=== PATIENT | female | born 1935 | race Caucasian/White ===

== ENCOUNTER 2016-10-16 18:11 | Observation (INO) | payer MEDICARE ==
[2016-10-16] MEDS ORDERED: SODIUM CHLORIDE 0.9% 1,000 ML IV STA (18:27)
--- NOTE | 2016-10-16 18:35 | ED ---
Syncope HPI - General Chief Complaint: Syncope Stated Complaint: Near Syncope Time Seen by Provider: 10/16/16 18:23 Source: patient, EMS Mode of arrival: EMS Limitations: no limitations - History of Present Illness Initial Comments: 81-year-old female recently diagnosed with breast cancer just finishing her radiation this coming Tuesday. He was going out to dinner when she felt very weak and flushed. She was seen by EMS and transported the hospital she was hypotensive. Said no fever no chills no cough no chest pain no percussion chest no shortness of breath no nausea vomiting has been taking some fluids. - Related Data Home Medications Medication Instructions Recorded Confirmed Alendronate Sodium [Fosamax] 70 mg PO CRUZ 03/07/14 10/16/16 Benazepril HCl 40 mg PO DAILY 03/07/14 10/16/16 Citalopram Hydrobromide [CeleXA] 40 mg PO HS 03/07/14 10/16/16 Levothyroxine Sodium [Synthroid] 25 mcg PO HS 03/07/14 10/16/16 Meloxicam [Mobic] 7.5 mg PO QAM 03/07/14 10/16/16 Simvastatin [Zocor] 20 mg PO HS 11/08/15 10/16/16 Temazepam [Restoril] 30 mg PO HS 07/05/16 10/16/16 Anastrozole [Arimidex] 1 mg PO DAILY 10/16/16 10/16/16 Bifidobacterium Infantis [Align] 4 mg PO DAILY 10/16/16 10/16/16 Calcium Carb-Vit D 500Mg-200Un 1 tab PO DAILY 10/16/16 10/16/16 [Oscal 500+D] Multivitamins, Thera [Multivitamin] 1 tab PO DAILY 10/16/16 10/16/16 Allergies Allergy/AdvReac Type Severity Reaction Status Date / Time codeine Allergy Unknown Verified 10/16/16 19:06 sulfur dioxide Allergy Unknown Verified 10/16/16 19:06 Review of Systems ROS Statement: Those systems with pertinent positive or pertinent negative responses have been documented in the HPI. ROS Other: All systems not noted in ROS Statement are negative. Constitutional: Denies: fever, chills ENT: Denies: ear pain, throat pain Respiratory: Denies: cough Cardiovascular: Denies: chest pain Gastrointestinal: Denies: abdominal pain, nausea, vomiting, diarrhea Genitourinary: Denies: urgency, dysuria, frequency Skin: Reports: rash (Redness on the right breast from radiation) Neurological: Denies: headache, weakness, numbness Psychiatric: Denies: anxiety, depression Hematological/Lymphatic: Denies: easy bleeding, easy bruising Past Medical History Past Medical History: Cancer, Hyperlipidemia, Hypertension, Thyroid Disorder Additional Past Medical History / Comment(s): arthritis, radiation for breast cancer History of Any Multi-Drug Resistant Organisms: None Reported Additional Past Surgical History / Comment(s): basal cell carcinoma, knee surgery Past Anesthesia/Blood Transfusion Reactions: No Reported Reaction Past Psychological History: Anxiety Smoking Status: Never smoker Past Alcohol Use History: None Reported Past Drug Use History: None Reported General Exam Limitations: no limitations General appearance: alert, in no apparent distress Head exam: Present: atraumatic Eye exam: Present: PERRL, EOMI ENT exam: Present: normal oropharynx, mucous membranes moist Respiratory exam: Present: normal lung sounds bilaterally Cardiovascular Exam: Present: regular rate, normal heart sounds GI/Abdominal exam: Present: soft. Absent: tenderness, guarding Neurological exam: Present: alert, CN II-XII intact Psychiatric exam: Present: normal affect Skin exam: Present: warm, dry, other (Redness right breast) Course Vital Signs 10/16/16 10/16/16 10/16/16 18:16 18:20 19:12 Temperature 97.9 F 97.6 F Pulse Rate 74 77 Respiratory 18 16 Rate Blood Pressure 87/43 95/56 92/53 O2 Sat by Pulse 94 L 97 Oximetry 10/16/16 10/16/16 19:52 20:42 Temperature 97.6 F Pulse Rate 72 74 Respiratory 16 16 Rate Blood Pressure 101/59 101/74 O2 Sat by Pulse 97 96 Oximetry Medical Decision Making - Medical Decision Making Patient appears be a combination of dehydration with her blood pressure medicine well hydrated overnight with a spoken to Dr. Davenport observation assistant - Lab Data Result diagrams: 10/16/16 17:20 10/16/16 17:20 Lab Results 10/16/16 10/16/16 10/16/16 Range/Units 17:20 17:20 17:20 WBC 4.5 (3.8-10.6) k/uL RBC 4.30 (3.80-5.40) m/uL Hgb 12.8 (11.4-16.0) gm/dL Hct 40.4 (34.0-46.0) % MCV 93.8 (80.0-100.0) fL MCH 29.8 (25.0-35.0) pg MCHC 31.7 (31.0-37.0) g/dL RDW 13.8 (11.5-15.5) % Plt Count 202 (150-450) k/uL Neutrophils % 65 % Lymphocytes % 15 % Monocytes % 10 % Eosinophils % 5 % Basophils % 1 % Neutrophils # 2.9 (1.3-7.7) k/uL Lymphocytes # 0.7 L (1.0-4.8) k/uL Monocytes # 0.4 (0-1.0) k/uL Eosinophils # 0.2 (0-0.7) k/uL Basophils # 0.1 (0-0.2) k/uL PT (9.0-12.0) sec INR (<1.1) APTT (22.0-30.0) sec Sodium 141 (137-145) mmol/L Potassium 3.9 (3.5-5.1) mmol/L Chloride 105 (98-107) mmol/L Carbon Dioxide 27 (22-30) mmol/L Anion Gap 9 mmol/L BUN 22 H (7-17) mg/dL Creatinine 0.85 (0.52-1.04) mg/dL Est GFR (MDRD) Af Amer >60 (>60 ml/min/1.73 sqM) Est GFR (MDRD) Non-Af >60 (>60 ml/min/1.73 sqM) Glucose 91 (74-99) mg/dL POC Glucose (mg/dL) (75-99) mg/dL POC Glu Marshmallow Machine Operator ID Plasma Lactic Acid Saul (0.7-2.0) mmol/L Calcium 9.5 (8.4-10.2) mg/dL Total Bilirubin 0.3 (0.2-1.3) mg/dL AST 23 (14-36) U/L ALT 30 (9-52) U/L Alkaline Phosphatase 64 (38-126) U/L Total Creatine Kinase 20 L (30-135) U/L CK-MB (CK-2) 0.3 (0.0-2.4) ng/mL CK-MB (CK-2) Rel Index 1.5 Troponin I <0.012 (0.000-0.034) ng/mL NT-Pro-B Natriuret Pep pg/mL Total Protein 6.2 L (6.3-8.2) g/dL Albumin 3.5 (3.5-5.0) g/dL 10/16/16 10/16/16 10/16/16 Range/Units 17:20 17:20 17:20 WBC (3.8-10.6) k/uL RBC (3.80-5.40) m/uL Hgb (11.4-16.0) gm/dL Hct (34.0-46.0) % MCV (80.0-100.0) fL MCH (25.0-35.0) pg MCHC (31.0-37.0) g/dL RDW (11.5-15.5) % Plt Count (150-450) k/uL Neutrophils % % Lymphocytes % % Monocytes % % Eosinophils % % Basophils % % Neutrophils # (1.3-7.7) k/uL Lymphocytes # (1.0-4.8) k/uL Monocytes # (0-1.0) k/uL Eosinophils # (0-0.7) k/uL Basophils # (0-0.2) k/uL PT 12.5 H (9.0-12.0) sec INR 1.3 (<1.1) APTT 21.2 L (22.0-30.0) sec Sodium (137-145) mmol/L Potassium (3.5-5.1) mmol/L Chloride (98-107) mmol/L Carbon Dioxide (22-30) mmol/L Anion Gap mmol/L BUN (7-17) mg/dL Creatinine (0.52-1.04) mg/dL Est GFR (MDRD) Af Amer (>60 ml/min/1.73 sqM) Est GFR (MDRD) Non-Af (>60 ml/min/1.73 sqM) Glucose (74-99) mg/dL POC Glucose (mg/dL) (75-99) mg/dL POC Glu Marshmallow Machine Operator ID Plasma Lactic Acid Saul 1.4 (0.7-2.0) mmol/L Calcium (8.4-10.2) mg/dL Total Bilirubin (0.2-1.3) mg/dL AST (14-36) U/L ALT (9-52) U/L Alkaline Phosphatase (38-126) U/L Total Creatine Kinase (30-135) U/L CK-MB (CK-2) (0.0-2.4) ng/mL CK-MB (CK-2) Rel Index Troponin I (0.000-0.034) ng/mL NT-Pro-B Natriuret Pep 225 pg/mL Total Protein (6.3-8.2) g/dL Albumin (3.5-5.0) g/dL 10/16/16 Range/Units 18:38 WBC (3.8-10.6) k/uL RBC (3.80-5.40) m/uL Hgb (11.4-16.0) gm/dL Hct (34.0-46.0) % MCV (80.0-100.0) fL MCH (25.0-35.0) pg MCHC (31.0-37.0) g/dL RDW (11.5-15.5) % Plt Count (150-450) k/uL Neutrophils % % Lymphocytes % % Monocytes % % Eosinophils % % Basophils % % Neutrophils # (1.3-7.7) k/uL Lymphocytes # (1.0-4.8) k/uL Monocytes # (0-1.0) k/uL Eosinophils # (0-0.7) k/uL Basophils # (0-0.2) k/uL PT (9.0-12.0) sec INR (<1.1) APTT (22.0-30.0) sec Sodium (137-145) mmol/L Potassium (3.5-5.1) mmol/L Chloride (98-107) mmol/L Carbon Dioxide (22-30) mmol/L Anion Gap mmol/L BUN (7-17) mg/dL Creatinine (0.52-1.04) mg/dL Est GFR (MDRD) Af Amer (>60 ml/min/1.73 sqM) Est GFR (MDRD) Non-Af (>60 ml/min/1.73 sqM) Glucose (74-99) mg/dL POC Glucose (mg/dL) 94 (75-99) mg/dL POC Glu Marshmallow Machine Operator ID Christina Cardoza Plasma Lactic Acid Saul (0.7-2.0) mmol/L Calcium (8.4-10.2) mg/dL Total Bilirubin (0.2-1.3) mg/dL AST (14-36) U/L ALT (9-52) U/L Alkaline Phosphatase (38-126) U/L Total Creatine Kinase (30-135) U/L CK-MB (CK-2) (0.0-2.4) ng/mL CK-MB (CK-2) Rel Index Troponin I (0.000-0.034) ng/mL NT-Pro-B Natriuret Pep pg/mL Total Protein (6.3-8.2) g/dL Albumin (3.5-5.0) g/dL - EKG Data -: EKG Interpreted by Me 10/16/16 18:45 EKG 10/16/2016 1835 ventricular rate 70 bpm, NE interval 170 ms, QRS duration 80 ms, QT interval 422 ms normal sinus rhythm moderate voltage criteria computer reads inferior infarct age indeterminate but there appears to be a R wave on 3 and aVF and no Q in to see this probably normal variation Disposition Clinical Impression: Dehydration Disposition: ADMITTED IP TO THIS [facility] Condition: Good Time of Disposition: 21:01
[2016-10-16 18:42] LABS: Glucose,Whole Blood 94 mg/dL (75-99)
[2016-10-16] MEDS ORDERED: ONDANSETRON 4 MG/2 ML VIAL IVP STA (19:02)
[2016-10-16 19:09] LABS: Basophils # (A) 0.1 k/uL (0-0.2); Basophils % (A) 1 %; CH 29.5; CHCM 31.6; Eosinophils # (A) 0.2 k/uL (0-0.7); Eosinophils % (A) 5 %; HCT 40.4 % (34.0-46.0); HGB 12.8 gm/dL (11.4-16.0); Luc # (Auto) 0.19; Luc % (Auto) 4; Lymphocytes # (A) 0.7 k/uL (1.0-4.8); Lymphocytes % (A) 15 %; MCH 29.8 pg (25.0-35.0); MCHC 31.7 g/dL (31.0-37.0); MCV 93.8 fL (80.0-100.0); Mean Platelet Volume 6.9; Monocytes # (A) 0.4 k/uL (0-1.0); Monocytes % (A) 10 %; Neutrophils # (A) 2.9 k/uL (1.3-7.7); Neutrophils % (A) 65 %; RDW 13.8 % (11.5-15.5); WBC 4.5 k/uL (3.8-10.6); WBC (Perox) 4.55
--- NOTE | 2016-10-16 19:18 | XR ---
EXAMINATION TYPE: XR chest 1V portable DATE OF EXAM: 10/16/2016 6:46 PM Comparison: 11/08/2015 Clinical History: 07/14/2016 Findings: Heart is upper limits of normal in size with atherosclerotic calcifications within the aortic arch. D iffuse interstitial prominence is unchanged. Left base underpenetrated and limited in evaluation. No definite consolidation or significant pleural effusion seen. Impression: Chronic changes. No definite acute process.
[2016-10-16 19:20] LABS: ALT 30 U/L (9-52); AST 23 U/L (14-36); Alkaline Phosphatase 64 U/L (38-126); Anion Gap 9 mmol/L; Blood Urea Nitrogen 22 mg/dL (7-17); Calcium 9.5 mg/dL (8.4-10.2); Carbon Dioxide 27 mmol/L (22-30); Chloride 105 mmol/L (98-107); Glucose 91 mg/dL (74-99); Non-African American GFR(MDRD) >60 (>60 ml/min/1.73 sqM); Potassium 3.9 mmol/L (3.5-5.1); Sodium 141 mmol/L (137-145); Total Bilirubin 0.3 mg/dL (0.2-1.3); Total Protein 6.2 g/dL (6.3-8.2)
[2016-10-16 19:21] LABS: Creatine Kinase 20 U/L (30-135)
[2016-10-16 19:34] LABS: Creatine Kinase MB 0.3 ng/mL (0.0-2.4); Troponin I <0.012 ng/mL (0.000-0.034)
[2016-10-16 19:40] LABS: INR 1.3 (<1.1); Partial Thromboplastin Time 21.2 sec (22.0-30.0); Prothrombin Time 12.5 sec (9.0-12.0)
[2016-10-16] MEDS ORDERED: NALOXONE 0.4 MG/ML 1 ML VIAL IV PRN (21:01)
[2016-10-16] MEDS ORDERED: ATORVASTATIN 10 MG TAB PO SCH (21:30)
[2016-10-16] MEDS ORDERED: CITALOPRAM HYDROBROMIDE 20 MG TAB PO SCH (21:30)
[2016-10-16] MEDS ORDERED: LEVOTHYROXINE 25 MCG TAB PO SCH (21:30)
[2016-10-16] MEDS ORDERED: 0.9% NACL WITH KCL 20 MEQ/L 1,000 ML IV SCH (21:30)
[2016-10-16 22:20] VITALS: BMI 27.4
[2016-10-17 00:43] LABS: Appearance,Urine Clear (Clear); Bilirubin,Urine Negative (Negative); Glucose,Urine (UA) Negative (Negative); Ketones,Urine Negative (Negative); Leukocyte Esterase,Urine Trace (Negative); Mucus,Urine Rare /hpf; Nitrite,Urine Negative (Negative); PH, Urine 5.5 (5.0-8.0); Particle Count 586; Protein,Urine Negative (Negative); RBC,Urine 1 /hpf (0-5); Specific Gravity,Urine 1.007 (1.001-1.035); Squamous Epithelial Cell,Urine <1 /hpf (0-4); Transitional Epi Cells,Urine <1 /hpf (0-1); UA Billing (MACRO vs. MICRO) MICRO; Urobilinogen,Urine <2.0 mg/dL (<2.0); WBC,Urine 3 /hpf (0-5)
[2016-10-17 07:04] LABS: Basophils % (A) 1 %; CH 29.4; CHCM 31.6; Eosinophils # (A) 0.2 k/uL (0-0.7); Eosinophils % (A) 5 %; HCT 35.5 % (34.0-46.0); HDW 2.27; HGB 11.5 gm/dL (11.4-16.0); Luc # (Auto) 0.12; Luc % (Auto) 3; Lymphocytes # (A) 0.5 k/uL (1.0-4.8); Lymphocytes % (A) 14 %; MCH 30.4 pg (25.0-35.0); MCHC 32.5 g/dL (31.0-37.0); MCV 93.8 fL (80.0-100.0); Mean Platelet Volume 7.4; Monocytes # (A) 0.3 k/uL (0-1.0); Monocytes % (A) 8 %; Neutrophils # (A) 2.5 k/uL (1.3-7.7); Neutrophils % (A) 68 %; RBC 3.79 m/uL (3.80-5.40); RDW 13.9 % (11.5-15.5); WBC 3.6 k/uL (3.8-10.6); WBC (Perox) 3.77
[2016-10-17 07:22] LABS: Anion Gap 2 mmol/L; Blood Urea Nitrogen 16 mg/dL (7-17); Calcium 8.8 mg/dL (8.4-10.2); Carbon Dioxide 28 mmol/L (22-30); Chloride 110 mmol/L (98-107); Glucose 82 mg/dL (74-99); Non-African American GFR(MDRD) >60 (>60 ml/min/1.73 sqM); Potassium 4.6 mmol/L (3.5-5.1); Sodium 140 mmol/L (137-145)
[2016-10-17 08:26] VITALS: BP 156/73; PULSE 75; RESP 16; TEMP 99
[2016-10-17] MEDS ORDERED: ANASTROZOLE 1 MG TAB PO SCH (09:00)
[2016-10-17] MEDS ORDERED: ENOXAPARIN 40 MG/0.4 ML SYRINGE SQ SCH (11:00)
--- NOTE | 2016-10-17 13:12 | HP ---
DATE OF ADMISSION: 10/16/2016 PRESENTING COMPLAINT: Weak, passed out. HISTORY OF PRESENTING COMPLAINT: This is a pleasant 81-year-old patient of Dr. Bright. Patient has been diagnosed with stage I breast cancer, getting radiation treatment with Dr. Dye. Other stable medical conditions include hyperlipidemia, hypertension, osteoarthritis, hypothyroid. Patient has not been eating as much and not drinking much fluids. Yesterday morning when she got up, she just passed out. Blood pressure was found to be low in the ER, was given IV fluid boluses. Denied any chest pain, palpitations. No headaches. No double vision. No seizure-like activity. REVIEW OF SYSTEMS: CONSTITUTIONAL: Tired. HEENT: None. RESPIRATORY: None. CARDIOVASCULAR: None. GASTROINTESTINAL: None. GENITOURINARY: None. MUSCULOSKELETAL: Aches and pains in the joints. DERMATOLOGICAL: None. HEMATOLOGICAL: None. LYMPHATIC: None. PSYCHIATRY: None. NEUROLOGICAL: None. Past history of breast cancer, hyperlipidemia, hypertension, osteoarthritis, hypothyroid. PAST SURGICAL HISTORY: Basal cell carcinoma. Left knee meniscus surgery. SOCIAL HISTORY: Does not smoke. Lives by herself. No major alcohol history. Family history of stroke. HOME MEDICATIONS: 1. Tylenol 1000 mg p.o. q.6. 2. Restoril 30 mg p.o. q.h.s. 3. Zocor 20 mg q.h.s. 4. Multivitamin 1 tablet p.o. daily. 5. Mobic 7.5 p.o. in the morning. 6. Synthroid 25 mcg q.h.s. 7. Celexa 40 mg q.h.s. 8. Os-Jose Juan with vitamin D 1 tablet p.o. daily. 9. Align. 10. Benazepril 40 mg p.o. daily. 11. Arimidex 1 mg p.o. daily. 12. Fosamax 70 mg p.o. on Sundays. Allergies to CODEINE, MORPHINE, SULFA. On examination, vital signs on presentation: Temperature 97.9, pulse 74, respiration 18, blood pressure 87/43, pulse ox 94% on room air. GENERAL APPEARANCE: Average build, lying in bed, tired-appearing. EYES: Pupils equal. Conjunctivae normal. HEENT: Oral cavity normal. NECK: JVD not raised, mass not palpable. Respiratory effort normal. Lungs are clear. CARDIOVASCULAR: First and second sounds normal. No edema. ABDOMEN: Soft. Liver and spleen not palpable. LYMPHATIC: No lymph node palpable in neck or axillae. PSYCHIATRY: Alert and oriented x3. Mood and affect was normal. NEUROLOGICAL: Pupils equal. Cranial nerves grossly intact. Power and sensation grossly intact. MUSCULOSKELETAL: Evidence of osteoarthritis in multiple joints. INVESTIGATIONS: White count 4.5, hemoglobin 12.8, potassium 3.9. BUN 22. ASSESSMENT: 1. Syncope, likely vasovagal from underlying hypotension. 2. Hypotension from decreased oral intake, dehydration. 3. Hyperlipidemia. 4. History of essential hypertension. 5. Primary osteoarthritis in multiple joints. 6. Hypothyroidism. 7. Depression, not otherwise specified. PLAN: Antihypertensives held. Patient given IV fluids bolus. Repeat blood pressure to be checked. Care was discussed with the patient.
[2016-10-17] MEDS ORDERED: TEMAZEPAM 30 MG CAP PO SCH (21:30)
--- NOTE | 2016-10-17 21:53 | DS ---
DATE OF ADMISSION: 10/16/2016 DATE OF DISCHARGE: 10/17/2016 FINAL DIAGNOSIS (ES): 1. Syncope, likely vasovagal from underlying hypertension. 2. Hypertension, likely from decreased oral intake, dehydration. 3. Hyperlipidemia. 4. Primary osteoarthritis in multiple joints. 5. Hypothyroidism. 6. Essential hypertension. 7. Depression, not otherwise specified. HOSPITAL COURSE: This patient is ( ) cancer, not eating much. Decreased oral intake. Presented with hypotension, and having did pass out. Blood pressure low in the ER, given IV fluids, blood pressure came back. I did cut back on blood pressure medications. Patient should keep a check of blood pressure at home. On examination: LUNGS: Clear. CARDIOVASCULAR: First and second sounds normal. DISCHARGE MEDICATIONS: 1. Fosamax 70 mg p.o. on Tuesday. 2. Celexa 40 mg p.o. q.h.s. 3. Synthroid 25 mcg p.o. q.h.s. 4. Mobic 7.5 p.o. in the morning. 5. Zocor 20 mg p.o. q.h.s. 6. Restoril 30 mg p.o. q.h.s. 7. Arimidex 1 mg p.o. daily. 8. ( ) 4 mg p.o. daily. 9. Os-Jose Juan 500 with vitamin D 1 tablet p.o. daily. 10. Multivitamin 1 tablet p.o. daily. 11. Benazepril 20 mg p.o. daily and when this is finished, patient can switch to Zestoretic /12.5 1 tablet p.o. q.h.s. Follow up with Dr. Bright in one week.
== END 2016-10-17 13:09 | disposition home or self-care (01) ==
LOC: EC 18:11 → 3OBS 21:01
PROVIDERS: ADMIT Hospitalist; ATTEND Hospitalist
DX: R55 Syncope and collapse (principal); I10 Essential (primary) hypertension; E86.0 Dehydration; E78.5 Hyperlipidemia, unspecified; M15.9 Polyosteoarthritis, unspecified; E03.9 Hypothyroidism, unspecified; F32.9 Major depressive disorder, single episode, unspecified; C50.919 Malignant neoplasm of unspecified site of unspecified female breast; Z82.3 Family history of stroke; Z85.828 Personal history of other malignant neoplasm of skin; Z88.5 Allergy status to narcotic agent; Z79.899 Other long term (current) drug therapy
CPT/HCPCS: 36415; 93005; 83880; 80053; 80048; 82550; 82553; 83605; 84484; 85025 ×2; 85610; 85730; 81001; 87040; 71010; 99285; 96375; 96361; G0378 ×2; J2405; J1650; S0170; 96365; 96366; 96372

== ENCOUNTER → 2016-12-31 | Outpatient (CLI) | payer MEDICARE ==
[2016-12-31 19:36] LABS: Blood Urea Nitrogen 22 mg/dL (7-17); Non-African American GFR(MDRD) >60 (>60 ml/min/1.73 sqM)
--- NOTE | 2017-01-01 07:05 | CT ---
EXAMINATION TYPE: CT chest w con DATE OF EXAM: 12/31/2016 8:00 PM COMPARISON: NONE HISTORY: History of breast cancer with Right sided lumpectomy. Abnormal CXR per pt CT DLP: 366.7 mGycm Automated exposure control for dose reduction was used. CONTRAST: CT scan of the chest is performed with IV Contrast, patient injected with 100 mL of Omnipaque 300. FINDINGS: There is a lumpectomy cavity and surgical clips within the right breast. There is atelectas is in the right middle lobe which may be partially due to radiation change. No parenchymal nodules ar e seen. There is a 1.5 cm aortopulmonary window lymph node. There is some shotty adenopathy within the right paratracheal space with the largest node measuring 7.5 mm. There is no pleural or pericardial fluid. The heart is mildly enlarged. The aortic root is normal in caliber measuring 3.3 cm. The proximal aortic arch is aneurysmal and measures 3.5 cm. The proximal de scending thoracic aorta is upper limits of normal measuring 3 cm. At the level of the aortic hiatus, the aorta is normal in caliber. There is a small hiatal hernia. Within the abdomen, there are multiple simple appearing renal cysts bilaterally. The largest is in th e left kidney and measures 6.4 cm. There is a subtle, ill-defined 7.8 mm lesion in the posterior segment of the right lobe of the liver. There is hypertrophic spondylosis within the spine. IMPRESSION: 1. POSTSURGICAL CHANGES WITHIN THE RIGHT BREAST. 2. POSTRADIATION CHANGES WITHIN THE RIGHT CHEST. 3 NO PULMONARY NODULES IDENTIFIED. 4. NONSPECIFIC AORTOPULMONARY WINDOW ADENOPATHY. 5. MULTIPLE, BILATERAL, SIMPLE APPEARING RENAL CYSTS. 6. THORACIC AORTIC ANEURYSM. 7. HIATAL HERNIA. 8. SUBTLE HEPATIC LESION IN THE POSTERIOR SEGMENT OF THE RIGHT LOBE OF THE LIVER. 9. CARDIOMEGALY. 10. DEGENERATIVE CHANGES WITHIN THE SPINE.
== END | disposition home or self-care (01) ==
LOC: RADCTMAIN 18:32
PROVIDERS: ATTEND Internal Medicine
DX: R91.1 Solitary pulmonary nodule (principal); Z88.2 Allergy status to sulfonamides; Z88.5 Allergy status to narcotic agent
CPT/HCPCS: 82565; 84520; 71260; 36415; Q9967

== ENCOUNTER 2017-04-10 19:57 | Emergency (ER) | payer MEDICARE ==
[2017-04-10] MEDS ORDERED: SODIUM CHLORIDE 0.9% 1,000 ML IV STA ×2 (20:02)
--- NOTE | 2017-04-10 20:15 | ED ---
Syncope HPI - General Stated Complaint: Syncopal Episode Time Seen by Provider: 04/10/17 19:57 Source: patient, EMS, RN notes reviewed, old records reviewed Mode of arrival: EMS - History of Present Illness Initial Comments: This is a 81-year-old female who presents with complaints of a near syncopal episode. She was at a restaurant waiting room she felt tunnel vision and clammy nauseated she was helped to the floor. She was found have a blood pressure 60/41 per paramedics after she was helped up from us Physician weren't reversible 130/82. Early was also noted to be in the 50s. Of note she did not drink much today she states she took a [place] for shoulder pain she's not normally heavy much pain or taking [place]. She denies any fevers chills nausea vomiting or other symptoms she had no palpitations also she did have a headache earlier today. Of note she does have a history of breast cancer status post radiation therapy which ended in October of this year. Also she has similar episode in October of this year with the findings she will be hydrated. No other complaints at this time no dysuria no hematuria no cough or phlegm production. Complaint: almost passed out - Related Data Home Medications Medication Instructions Recorded Confirmed Alendronate Sodium [Fosamax] 70 mg PO CRUZ 03/07/14 04/10/17 Citalopram Hydrobromide [CeleXA] 40 mg PO HS 03/07/14 04/10/17 Levothyroxine Sodium [Synthroid] 25 mcg PO HS 03/07/14 04/10/17 Meloxicam [Mobic] 7.5 mg PO QAM 03/07/14 04/10/17 Simvastatin [Zocor] 20 mg PO HS 11/08/15 04/10/17 Temazepam [Restoril] 30 mg PO HS 07/05/16 04/10/17 Acetaminophen Tab [Tylenol] 1,000 mg PO Q6HR PRN 10/16/16 04/10/17 Anastrozole [Arimidex] 1 mg PO DAILY 10/16/16 04/10/17 Calcium Carb-Vit D 500Mg-200Un 1 tab PO DAILY 10/16/16 04/10/17 [Oscal 500+D] Multivitamins, Thera [Multivitamin 1 tab PO DAILY 10/16/16 04/10/17 (formulary)] Benazepril HCl 40 mg PO DAILY 04/10/17 04/10/17 L.acidoph,Paracasei, B.lactis 1 cap PO DAILY 04/10/17 04/10/17 [Probiotic] Allergies Allergy/AdvReac Type Severity Reaction Status Date / Time aspirin AdvReac Epistaxis Verified 04/10/17 21:00 codeine AdvReac Nausea Verified 10/16/16 22:09 morphine AdvReac Nausea Verified 10/16/16 22:09 sulfur dioxide AdvReac Nausea Verified 10/16/16 22:09 Review of Systems ROS Statement: Those systems with pertinent positive or pertinent negative responses have been documented in the HPI. ROS Other: All systems not noted in ROS Statement are negative. Past Medical History Past Medical History: Cancer, Hyperlipidemia, Hypertension, Thyroid Disorder Additional Past Medical History / Comment(s): arthritis, radiation for breast cancer History of Any Multi-Drug Resistant Organisms: None Reported Additional Past Surgical History / Comment(s): basal cell carcinoma, knee surgery L menincus Past Anesthesia/Blood Transfusion Reactions: No Reported Reaction Past Psychological History: Anxiety Smoking Status: Never smoker Past Alcohol Use History: None Reported Past Drug Use History: None Reported - Past Family History Mother Family Medical History: CVA/TIA Father Family Medical History: No Reported History Additional Family Medical History / Comment(s): from a fall Brother(s) Family Medical History: Cancer Additional Family Medical History / Comment(s): Prostate CA General Exam - General Exam Comments Initial Comments: This is a well-developed well-nourished awake alert oriented 3 female General appearance: alert, in no apparent distress Head exam: Present: atraumatic, normocephalic, normal inspection Eye exam: Present: normal appearance, PERRL, EOMI. Absent: scleral icterus, conjunctival injection, periorbital swelling ENT exam: Present: mucous membranes dry Neck exam: Present: normal inspection. Absent: tenderness, meningismus, lymphadenopathy Respiratory exam: Present: normal lung sounds bilaterally. Absent: respiratory distress, wheezes, rales, rhonchi, stridor Cardiovascular Exam: Present: regular rate, normal rhythm, normal heart sounds. Absent: systolic murmur, diastolic murmur, rubs, gallop, clicks GI/Abdominal exam: Present: soft, normal bowel sounds. Absent: distended, tenderness, guarding, rebound, rigid Extremities exam: Present: normal inspection, full ROM, normal capillary refill. Absent: tenderness, pedal edema, joint swelling, calf tenderness Back exam: Present: normal inspection Neurological exam: Present: alert, oriented X3, CN II-XII intact Psychiatric exam: Present: normal affect, normal mood Skin exam: Present: warm, dry, intact, normal color. Absent: rash Course Vital Signs 04/10/17 20:24 Temperature 98.5 F Pulse Rate 68 Respiratory 16 Rate Blood Pressure 104/56 O2 Sat by Pulse 96 Oximetry EKG Findings - EKG Results: EKG: interpreted by KALYANI, sinus rhythm (Sinus rhythm with a rate 69. Interval 164 QRS 84 QT since QTC of 462/495 moderate voltage criteria for LVH no acute ST -T wave changes.) Medical Decision Making - Medical Decision Making I did reevaluate the patient on several occasions she initially much improved she did admit that she took her pain medication which she does not normally take on an empty stomach. This is the likely cause of today's episode. I did discuss with the patient and her family members were present. She will be discharged to follow-up with her doctor - Lab Data Result diagrams: 04/10/17 20:15 04/10/17 20:15 Lab Results 04/10/17 04/10/17 04/10/17 Range/Units 20:15 20:15 20:15 WBC 4.2 (3.8-10.6) k/uL RBC 4.17 (3.80-5.40) m/uL Hgb 12.7 (11.4-16.0) gm/dL Hct 37.6 (34.0-46.0) % MCV 90.2 (80.0-100.0) fL MCH 30.4 (25.0-35.0) pg MCHC 33.7 (31.0-37.0) g/dL RDW 14.1 (11.5-15.5) % Plt Count 194 (150-450) k/uL Neutrophils % 62 % Lymphocytes % 23 % Monocytes % 8 % Eosinophils % 3 % Basophils % 1 % Neutrophils # 2.6 (1.3-7.7) k/uL Lymphocytes # 1.0 (1.0-4.8) k/uL Monocytes # 0.3 (0-1.0) k/uL Eosinophils # 0.1 (0-0.7) k/uL Basophils # 0.1 (0-0.2) k/uL PT (9.0-12.0) sec INR (<1.1) APTT (22.0-30.0) sec Sodium 140 (137-145) mmol/L Potassium 4.2 (3.5-5.1) mmol/L Chloride 106 (98-107) mmol/L Carbon Dioxide 27 (22-30) mmol/L Anion Gap 7 mmol/L BUN 17 (7-17) mg/dL Creatinine 0.78 (0.52-1.04) mg/dL Est GFR (MDRD) Af Amer >60 (>60 ml/min/1.73 sqM) Est GFR (MDRD) Non-Af >60 (>60 ml/min/1.73 sqM) Glucose 90 (74-99) mg/dL POC Glucose (mg/dL) (75-99) mg/dL POC Glu Tin Plater ID Calcium 9.0 (8.4-10.2) mg/dL Magnesium 2.0 (1.6-2.3) mg/dL Total Bilirubin 0.5 (0.2-1.3) mg/dL AST 28 (14-36) U/L ALT 25 (9-52) U/L Alkaline Phosphatase 81 (38-126) U/L Total Creatine Kinase 24 L (30-135) U/L CK-MB (CK-2) 0.4 (0.0-2.4) ng/mL CK-MB (CK-2) Rel Index 1.7 Troponin I <0.012 (0.000-0.034) ng/mL Total Protein 6.1 L (6.3-8.2) g/dL Albumin 3.5 (3.5-5.0) g/dL Urine Color Urine Appearance (Clear) Urine pH (5.0-8.0) Ur Specific Hayden (1.001-1.035) Urine Protein (Negative) Urine Glucose (UA) (Negative) Urine Ketones (Negative) Urine Blood (Negative) Urine Nitrite (Negative) Urine Bilirubin (Negative) Urine Urobilinogen (<2.0) mg/dL Ur Leukocyte Esterase (Negative) 07/06/1904/10/17 04/10/17 Range/Units 20:15 20:22 21:32 WBC (3.8-10.6) k/uL RBC (3.80-5.40) m/uL Hgb (11.4-16.0) gm/dL Hct (34.0-46.0) % MCV (80.0-100.0) fL MCH (25.0-35.0) pg MCHC (31.0-37.0) g/dL RDW (11.5-15.5) % Plt Count (150-450) k/uL Neutrophils % % Lymphocytes % % Monocytes % % Eosinophils % % Basophils % % Neutrophils # (1.3-7.7) k/uL Lymphocytes # (1.0-4.8) k/uL Monocytes # (0-1.0) k/uL Eosinophils # (0-0.7) k/uL Basophils # (0-0.2) k/uL PT 13.3 H (9.0-12.0) sec INR 1.4 (<1.1) APTT 23.3 (22.0-30.0) sec Sodium (137-145) mmol/L Potassium (3.5-5.1) mmol/L Chloride (98-107) mmol/L Carbon Dioxide (22-30) mmol/L Anion Gap mmol/L BUN (7-17) mg/dL Creatinine (0.52-1.04) mg/dL Est GFR (MDRD) Af Amer (>60 ml/min/1.73 sqM) Est GFR (MDRD) Non-Af (>60 ml/min/1.73 sqM) Glucose (74-99) mg/dL POC Glucose (mg/dL) 91 (75-99) mg/dL POC Glu Tin Plater ID Salgat, Ginny Calcium (8.4-10.2) mg/dL Magnesium (1.6-2.3) mg/dL Total Bilirubin (0.2-1.3) mg/dL AST (14-36) U/L ALT (9-52) U/L Alkaline Phosphatase (38-126) U/L Total Creatine Kinase (30-135) U/L CK-MB (CK-2) (0.0-2.4) ng/mL CK-MB (CK-2) Rel Index Troponin I (0.000-0.034) ng/mL Total Protein (6.3-8.2) g/dL Albumin (3.5-5.0) g/dL Urine Color Yellow Urine Appearance Clear (Clear) Urine pH 6.0 (5.0-8.0) Ur Specific Hayden 1.017 (1.001-1.035) Urine Protein Trace H (Negative) Urine Glucose (UA) Negative (Negative) Urine Ketones Negative (Negative) Urine Blood Negative (Negative) Urine Nitrite Negative (Negative) Urine Bilirubin Negative (Negative) Urine Urobilinogen <2.0 (<2.0) mg/dL Ur Leukocyte Esterase Negative (Negative) - Radiology Data Radiology results: report reviewed (I did review the imaging and reports no acute findings.), image reviewed Disposition Clinical Impression: Near syncope, Vasovagal episode Disposition: HOME SELF-CARE Condition: Good Instructions: Near Syncope (ED) Referrals: Carolyn Bright MD [Primary Care Provider] - 1-2 days
[2017-04-10 20:24] LABS: Basophils # (A) 0.1 k/uL (0-0.2); Basophils % (A) 1 %; CH 29.7; CHCM 33.1; Eosinophils # (A) 0.1 k/uL (0-0.7); Eosinophils % (A) 3 %; HCT 37.6 % (34.0-46.0); HDW 2.36; HGB 12.7 gm/dL (11.4-16.0); Luc # (Auto) 0.13; Luc % (Auto) 3; Lymphocytes % (A) 23 %; MCH 30.4 pg (25.0-35.0); MCHC 33.7 g/dL (31.0-37.0); MCV 90.2 fL (80.0-100.0); Mean Platelet Volume 6.9; Monocytes # (A) 0.3 k/uL (0-1.0); Monocytes % (A) 8 %; Neutrophils # (A) 2.6 k/uL (1.3-7.7); Neutrophils % (A) 62 %; RBC 4.17 m/uL (3.80-5.40); RDW 14.1 % (11.5-15.5); WBC 4.2 k/uL (3.8-10.6); WBC (Perox) 3.86
[2017-04-10 20:24] LABS: Glucose,Whole Blood 91 mg/dL (75-99)
[2017-04-10 20:30] VITALS: TEMP 98.5
[2017-04-10 20:32] LABS: INR 1.4 (<1.1); Partial Thromboplastin Time 23.3 sec (22.0-30.0); Prothrombin Time 13.3 sec (9.0-12.0)
[2017-04-10 20:43] LABS: Creatine Kinase 24 U/L (30-135)
[2017-04-10 20:51] LABS: ALT 25 U/L (9-52); AST 28 U/L (14-36); Alkaline Phosphatase 81 U/L (38-126); Anion Gap 7 mmol/L; Blood Urea Nitrogen 17 mg/dL (7-17); Carbon Dioxide 27 mmol/L (22-30); Chloride 106 mmol/L (98-107); Glucose 90 mg/dL (74-99); Non-African American GFR(MDRD) >60 (>60 ml/min/1.73 sqM); Potassium 4.2 mmol/L (3.5-5.1); Sodium 140 mmol/L (137-145); Total Bilirubin 0.5 mg/dL (0.2-1.3); Total Protein 6.1 g/dL (6.3-8.2)
[2017-04-10 20:57] LABS: Creatine Kinase MB 0.4 ng/mL (0.0-2.4); Troponin I <0.012 ng/mL (0.000-0.034)
--- NOTE | 2017-04-10 21:06 | CT ---
EXAMINATION TYPE: CT brain wo con DATE OF EXAM: 04/10/2017 COMPARISON: 11/22/2013 HISTORY: Near Syncope CT DLP: 1072.30 mGycm Automated exposure control for dose reduction was used. FINDINGS: There is cerebral cortical atrophy. There is no mass effect nor midline shift. There is no sign of in tracranial hemorrhage. There is a 1.5 cm hypodensity in the insula left temporal lobe. The calvarium is intact. There is mucosal thickening in the ethmoid air cells. 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 NO ACUTE INTRACRANIAL ABNORMALITY. MILD ETHMOID SINUSITIS. BRAIN IS UNCHANGED COMPARED TO OLD EXAM.
--- NOTE | 2017-04-10 21:07 | XR ---
EXAMINATION TYPE: XR chest 2V DATE OF EXAM: 04/10/2017 COMPARISON: 12/27/2016 HISTORY: Syncope TECHNIQUE: Frontal and lateral views of the chest are obtained. FINDINGS: There is no heart failure nor confluent pneumonic infiltrate. Thoracic aorta is atheromato us. There are chest leads. There is coarsening of interstitial pulmonary markings. IMPRESSION: Mild pulmonary fibrosis. No heart failure. Atheromatous aorta. No significant change com pared to old exam.
[2017-04-10 21:37] LABS: Appearance,Urine Clear (Clear); Bilirubin,Urine Negative (Negative); Glucose,Urine (UA) Negative (Negative); Ketones,Urine Negative (Negative); Leukocyte Esterase,Urine Negative (Negative); Nitrite,Urine Negative (Negative); Protein,Urine Trace (Negative); Specific Gravity,Urine 1.017 (1.001-1.035); UA Billing (MACRO vs. MICRO) CHEM; Urobilinogen,Urine <2.0 mg/dL (<2.0)
[2017-04-10 21:53] VITALS: RESP 18
[2017-04-10 21:55] VITALS: BP 125/66; PULSE 68
== END 2017-04-10 22:03 | disposition home or self-care (01) ==
LOC: EC 19:57
DX: R55 Syncope and collapse (principal); R51 Headache; E78.5 Hyperlipidemia, unspecified; I10 Essential (primary) hypertension; M19.90 Unspecified osteoarthritis, unspecified site; E07.9 Disorder of thyroid, unspecified; Z79.1 Long term (current) use of non-steroidal anti-inflammatories (NSAID); Z79.899 Other long term (current) drug therapy; Z88.5 Allergy status to narcotic agent; Z88.6 Allergy status to analgesic agent; Z91.048 Other nonmedicinal substance allergy status; Z85.3 Personal history of malignant neoplasm of breast; Z92.3 Personal history of irradiation
CPT/HCPCS: 36415; 70450; 71020; 80053; 81003; 82550; 82553; 83735; 84484; 85025; 85610; 85730; 93005; 96360; 96361; 99285

== ENCOUNTER → 2017-07-07 | Outpatient (CLI) | payer MEDICARE ==
[2017-07-07 17:59] LABS: Basophils # (A) 0.1 k/uL (0-0.2); Basophils % (A) 2 %; CH 31.1; CHCM 32.1; Eosinophils # (A) 0.2 k/uL (0-0.7); Eosinophils % (A) 3 %; HCT 41.7 % (34.0-46.0); HDW 2.27; HGB 13.3 gm/dL (11.4-16.0); Luc # (Auto) 0.17; Luc % (Auto) 3; Lymphocytes # (A) 0.9 k/uL (1.0-4.8); Lymphocytes % (A) 18 %; MCHC 31.9 g/dL (31.0-37.0); MCV 97.4 fL (80.0-100.0); Mean Platelet Volume 7.2; Monocytes # (A) 0.4 k/uL (0-1.0); Monocytes % (A) 9 %; Neutrophils # (A) 3.4 k/uL (1.3-7.7); Neutrophils % (A) 66 %; RBC 4.28 m/uL (3.80-5.40); RDW 14.3 % (11.5-15.5); WBC 5.2 k/uL (3.8-10.6); WBC (Perox) 5.42
[2017-07-07 18:13] LABS: ALT 37 U/L (9-52); AST 29 U/L (14-36); Alkaline Phosphatase 89 U/L (38-126); Anion Gap 7 mmol/L; Blood Urea Nitrogen 17 mg/dL (7-17); Calcium 9.5 mg/dL (8.4-10.2); Carbon Dioxide 29 mmol/L (22-30); Chloride 103 mmol/L (98-107); Glucose 77 mg/dL (74-99); Non-African American GFR(MDRD) >60 (>60 ml/min/1.73 sqM); Potassium 4.4 mmol/L (3.5-5.1); Sodium 139 mmol/L (137-145); Total Protein 6.6 g/dL (6.3-8.2)
[2017-07-07 18:31] LABS: Total Bilirubin 0.3 mg/dL (0.2-1.3)
[2017-07-07 19:21] LABS: Vitamin B12 492 pg/mL
== END | disposition home or self-care (01) ==
LOC: LABWHC1 16:50
PROVIDERS: ATTEND Internal Medicine
DX: R53.83 Other fatigue (principal); R53.1 Weakness; R53.81 Other malaise
CPT/HCPCS: 36415; 80053; 82607; 84439; 84443; 85025

== ENCOUNTER → 2017-10-18 | Outpatient (CLI) | payer MEDICARE ==
--- NOTE | 2017-10-18 17:30 | PN ---
PROGRESS NOTE This patient was diagnosed having sleep apnea with an AHI of 18.8, and the patient is currently on CPAP with a pressure of 10 cm of water. The patient is coming in to see me in followup. This is a compliancy check. The patient is responding to the treatment. She is happy with the treatment. Her sleep quality has improved and she is waking up much more alert and awake. However, the nasal pillows are affecting her nostrils and she is looking for alternatives. She may benefit from a nose mask. Her compliancy data over the past 30 days show that the patient has achieved more than 4 hours 90% of the time. Her CPAP use on average is 6 hours and 40 minutes. Her AHI while on treatment is down to 4.2. The patient has only a leak factor of 8 L/minute. No new complaints other than the irritation that is occurring at the level of her nostrils. She is having some sinus pressure on and off, yet there is no purulent drainage or nasal plugging at this point. HER CURRENT VITAL SIGNS: BP is 145/85, pulse 88, respirations 16, temperature 98.3. Weight is 190. Saturation is 97% on room air. GENERAL APPEARANCE: Calm and comfortable, in no acute distress. Head is atraumatic, normocephalic. Neck is supple. There is no JVD. No goiter or neck masses. LUNGS: Diminished; otherwise clear. Heart sounds are regular rate and rhythm. Normal S1, S2. No S3, S4. No murmurs. Abdomen is soft, nontender. No organomegaly. EXTREMITIES: No edema. No cyanosis or clubbing. NEUROLOGIC: The patient is awake and alert. There are no focal neurological deficits. PSYCHIATRIC: The patient is having an appropriate mood and affect. IMPRESSION: 1. Obstructive sleep apnea with an AHI of 18, currently on CPAP at a pressure of 10 cm of water. Treatment has been successful. Compliancy data reflect her successful treatment. 2. Chronic fatigue and sleepiness, improving. 3. Hypertension. 4. Hyperlipidemia. 5. Depression. 6. Osteoarthritis. 7. Hypothyroidism. PLAN: 1. Continue CPAP therapy at the same level of pressure. 2. Switch this patient to an Eson nose mask. 3. Encourage weight loss. 4. Continue CPAP therapy and contact me back if there are any issues with her treatment. For now her treatment is successful. MMODL / IJN: [id number] /
== END | disposition home or self-care (01) ==
LOC: SLEEP 15:55
PROVIDERS: ATTEND Internal Medicine Critical Care Medicine
DX: G47.33 Obstructive sleep apnea (adult) (pediatric) (principal); I10 Essential (primary) hypertension; E78.5 Hyperlipidemia, unspecified; F32.9 Major depressive disorder, single episode, unspecified; E03.9 Hypothyroidism, unspecified; M19.90 Unspecified osteoarthritis, unspecified site; R53.82 Chronic fatigue, unspecified; Z99.89 Dependence on other enabling machines and devices

== ENCOUNTER 2018-05-12 13:58 | Emergency (ER) | payer MEDICARE ==
[2018-05-12 14:09] VITALS: RESP 18
[2018-05-12] MEDS ORDERED: SODIUM CHLORIDE 0.9% 1,000 ML IV STA ×2 (14:47)
--- NOTE | 2018-05-12 14:51 | ED ---
Extremity Problem HPI - General Chief complaint: Extremity Problem,Nontraumatic Stated complaint: Left Shoulder Pain Time Seen by Provider: 05/12/18 14:27 Source: patient, EMS, RN notes reviewed, old records reviewed Mode of arrival: EMS Limitations: no limitations - History of Present Illness Initial comments: This is an 82-year-old female presents emergency department today with chief complaint of left shoulder and rib pain. Patient reports that she dropped her garbage out 2 days ago and started having some left-sided back pain afterwards. Patient states that she started having some pain within her left rib today and it seemed to radiate upward. She is concerned that it could be an issue with her heart. Patient states she has no shortness of breath. She denies any previous cardiac history. Pain is exacerbated with range of motion and movement to get up to stand. Patient states she's had no fevers or chills, cough or shortness of breath. She denies any other symptoms at this time. - Related Data Home Medications Medication Instructions Recorded Confirmed Alendronate Sodium [Fosamax] 70 mg PO CRUZ 03/07/14 04/10/17 Citalopram Hydrobromide [CeleXA] 40 mg PO HS 03/07/14 04/10/17 Levothyroxine Sodium [Synthroid] 25 mcg PO HS 03/07/14 04/10/17 Meloxicam [Mobic] 7.5 mg PO QAM 03/07/14 04/10/17 Simvastatin [Zocor] 20 mg PO HS 11/08/15 04/10/17 Temazepam [Restoril] 30 mg PO HS 07/05/16 04/10/17 Acetaminophen Tab [Tylenol] 1,000 mg PO Q6HR PRN 10/16/16 04/10/17 Anastrozole [Arimidex] 1 mg PO DAILY 10/16/16 04/10/17 Calcium Carb-Vit D 500Mg-200Un 1 tab PO DAILY 10/16/16 04/10/17 [Oscal 500+D] Multivitamins, Thera [Multivitamin 1 tab PO DAILY 10/16/16 04/10/17 (formulary)] Benazepril HCl 40 mg PO DAILY 04/10/17 04/10/17 L.acidoph,Paracasei, B.lactis 1 cap PO DAILY 04/10/17 04/10/17 [Probiotic] Previous Rx's Medication Instructions Recorded Cyclobenzaprine [Flexeril] 10 mg PO TID #12 tab 05/12/18 Ibuprofen 600 mg PO TID #20 tablet 05/12/18 Allergies Allergy/AdvReac Type Severity Reaction Status Date / Time aspirin AdvReac Epistaxis Verified 05/12/18 14:02 codeine AdvReac Nausea Verified 05/12/18 14:02 morphine AdvReac Nausea Verified 05/12/18 14:02 sulfur dioxide AdvReac Nausea Verified 05/12/18 14:02 Review of Systems ROS Statement: Those systems with pertinent positive or pertinent negative responses have been documented in the HPI. ROS Other: All systems not noted in ROS Statement are negative. Past Medical History Past Medical History: Cancer, Hyperlipidemia, Hypertension, Thyroid Disorder Additional Past Medical History / Comment(s): arthritis, radiation for breast cancer History of Any Multi-Drug Resistant Organisms: None Reported Additional Past Surgical History / Comment(s): basal cell carcinoma, knee surgery L menincus Past Anesthesia/Blood Transfusion Reactions: No Reported Reaction Past Psychological History: Anxiety Smoking Status: Never smoker Past Alcohol Use History: None Reported Past Drug Use History: None Reported - Past Family History Mother Family Medical History: CVA/TIA Father Family Medical History: No Reported History Additional Family Medical History / Comment(s): from a fall Brother(s) Family Medical History: Cancer Additional Family Medical History / Comment(s): Prostate CA General Exam - General Exam Comments Initial Comments: This is an 82-year-old female. Alert and oriented. No significant distress. Limitations: no limitations General appearance: alert, in no apparent distress Head exam: Present: atraumatic, normocephalic, normal inspection Eye exam: Present: normal appearance, PERRL, EOMI. Absent: scleral icterus, conjunctival injection, periorbital swelling ENT exam: Present: normal exam, mucous membranes moist Neck exam: Present: normal inspection. Absent: tenderness, meningismus, lymphadenopathy Respiratory exam: Present: normal lung sounds bilaterally, other (Patient has tenderness over the left rib 6 or 7.). Absent: respiratory distress, wheezes, rales, rhonchi, stridor Cardiovascular Exam: Present: regular rate, normal rhythm, normal heart sounds. Absent: systolic murmur, diastolic murmur, rubs, gallop, clicks GI/Abdominal exam: Present: soft, normal bowel sounds. Absent: distended, tenderness, guarding, rebound, rigid Extremities exam: Present: normal inspection, full ROM, normal capillary refill , other (Tenderness over the left scapula.). Absent: tenderness, pedal edema, joint swelling, calf tenderness Back exam: Present: normal inspection Neurological exam: Present: alert, oriented X3, CN II-XII intact Psychiatric exam: Present: normal affect, normal mood Skin exam: Present: warm, dry, intact, normal color. Absent: rash Course Vital Signs 05/12/18 14:05 Temperature 98.2 F Pulse Rate 68 Respiratory 18 Rate Blood Pressure 121/82 O2 Sat by Pulse 96 Oximetry Medical Decision Making - Medical Decision Making 82-year-old female presents emergency Department with left shoulder and rib pain. She reports it seemed to occur after she was moving heavy garbage she days ago. Patient EKG at this time was reviewed and normal. Lab work and cardiac enzymes was negative for any changes. Chest x-ray shows no acute process. There is some low lung volumes noted. Patient's pain is exacerbated with palpation over the ribs and muscles over the scapula. Discussed most likely muscle social nature. This time we'll discharge the Patient with a temperature medication muscle relaxer. She'll have follow-up with PCP. Otherwise given the length of time it would expect an abnormality with her cardiac enzymes or EKG, even length of time of symptoms I believe that the patient's pain is not any concern for cardiac origin. - Lab Data Result diagrams: 05/12/18 15:33 05/12/18 15:33 Lab Results 05/12/18 05/12/18 05/12/18 Range/Units 15:33 15:33 15:33 WBC 4.4 (3.8-10.6) k/uL RBC 4.71 (3.80-5.40) m/uL Hgb 13.8 (11.4-16.0) gm/dL Hct 42.0 (34.0-46.0) % MCV 89.1 (80.0-100.0) fL MCH 29.2 (25.0-35.0) pg MCHC 32.8 (31.0-37.0) g/dL RDW 13.2 (11.5-15.5) % Plt Count 194 (150-450) k/uL Neutrophils % 58 % Lymphocytes % 23 % Monocytes % 10 % Eosinophils % 3 % Basophils % 2 % Neutrophils # 2.6 (1.3-7.7) k/uL Lymphocytes # 1.0 (1.0-4.8) k/uL Monocytes # 0.4 (0-1.0) k/uL Eosinophils # 0.2 (0-0.7) k/uL Basophils # 0.1 (0-0.2) k/uL PT (9.0-12.0) sec INR (<1.2) APTT (22.0-30.0) sec Sodium 139 (137-145) mmol/L Potassium 4.2 (3.5-5.1) mmol/L Chloride 106 (98-107) mmol/L Carbon Dioxide 28 (22-30) mmol/L Anion Gap 5 mmol/L BUN 17 (7-17) mg/dL Creatinine 0.74 (0.52-1.04) mg/dL Est GFR (CKD-EPI)AfAm 89 (>60 ml/min/1.73 sqM) Est GFR (CKD-EPI)NonAf 77 (>60 ml/min/1.73 sqM) Glucose 84 (74-99) mg/dL Calcium 9.3 (8.4-10.2) mg/dL Magnesium 2.0 (1.6-2.3) mg/dL Total Bilirubin 0.7 (0.2-1.3) mg/dL AST 24 (14-36) U/L ALT 29 (9-52) U/L Alkaline Phosphatase 72 (38-126) U/L Total Creatine Kinase <20 L (30-135) U/L CK-MB (CK-2) 0.3 (0.0-2.4) ng/mL CK-MB (CK-2) Rel Index Troponin I <0.012 (0.000-0.034) ng/mL Total Protein 6.1 L (6.3-8.2) g/dL Albumin 3.4 L (3.5-5.0) g/dL 05/12/18 Range/Units 15:33 WBC (3.8-10.6) k/uL RBC (3.80-5.40) m/uL Hgb (11.4-16.0) gm/dL Hct (34.0-46.0) % MCV (80.0-100.0) fL MCH (25.0-35.0) pg MCHC (31.0-37.0) g/dL RDW (11.5-15.5) % Plt Count (150-450) k/uL Neutrophils % % Lymphocytes % % Monocytes % % Eosinophils % % Basophils % % Neutrophils # (1.3-7.7) k/uL Lymphocytes # (1.0-4.8) k/uL Monocytes # (0-1.0) k/uL Eosinophils # (0-0.7) k/uL Basophils # (0-0.2) k/uL PT 13.0 H (9.0-12.0) sec INR 1.4 H (<1.2) APTT 25.8 (22.0-30.0) sec Sodium (137-145) mmol/L Potassium (3.5-5.1) mmol/L Chloride (98-107) mmol/L Carbon Dioxide (22-30) mmol/L Anion Gap mmol/L BUN (7-17) mg/dL Creatinine (0.52-1.04) mg/dL Est GFR (CKD-EPI)AfAm (>60 ml/min/1.73 sqM) Est GFR (CKD-EPI)NonAf (>60 ml/min/1.73 sqM) Glucose (74-99) mg/dL Calcium (8.4-10.2) mg/dL Magnesium (1.6-2.3) mg/dL Total Bilirubin (0.2-1.3) mg/dL AST (14-36) U/L ALT (9-52) U/L Alkaline Phosphatase (38-126) U/L Total Creatine Kinase (30-135) U/L CK-MB (CK-2) (0.0-2.4) ng/mL CK-MB (CK-2) Rel Index Troponin I (0.000-0.034) ng/mL Total Protein (6.3-8.2) g/dL Albumin (3.5-5.0) g/dL 05/12/18 15:26 EKG performed at 1458 shows normal sinus rhythm and normal EKG noted. Ventricular rate 73 bpm. CA interval is 170 ms. QRS duration 84 ms. QT QTc is 4/44 ms. No evidence of ST elevation or T-wave inversion. - Radiology Data Radiology results: report reviewed His x-ray shows evidence of low lung volumes chronic changes. Negative for any acute cardiac process. Disposition Clinical Impression: Chest wall pain, Left shoulder pain Disposition: HOME SELF-CARE Condition: Good Instructions: Rotator Cuff Injury (ED), Chest Wall Pain (ED) Additional Instructions: Patient advised to take the muscle relaxers and to apply heat and ice over the area is tender. Patient can also taken simply return medication. Return to emergency department if any alarming signs or symptoms occur. Prescriptions: Cyclobenzaprine [Flexeril] 10 mg PO TID #12 tab Ibuprofen 600 mg PO TID #20 tablet Is patient prescribed a controlled substance at d/c from ED?: No Referrals: Carolyn Bright MD [Primary Care Provider] - 1-2 days Time of Disposition: 16:40
[2018-05-12 15:52] LABS: Basophils # (A) 0.1 k/uL (0-0.2); Basophils % (A) 2 %; Eosinophils # (A) 0.2 k/uL (0-0.7); Eosinophils % (A) 3 %; HGB 13.8 gm/dL (11.4-16.0); Lymphocytes % (A) 23 %; MCH 29.2 pg (25.0-35.0); MCHC 32.8 g/dL (31.0-37.0); MCV 89.1 fL (80.0-100.0); Mean Platelet Volume 6.8; Monocytes # (A) 0.4 k/uL (0-1.0); Monocytes % (A) 10 %; Neutrophils # (A) 2.6 k/uL (1.3-7.7); Neutrophils % (A) 58 %; Platelet Count 194 k/uL (150-450); RBC 4.71 m/uL (3.80-5.40); RDW 13.2 % (11.5-15.5); WBC 4.4 k/uL (3.8-10.6)
[2018-05-12 16:01] LABS: INR 1.4 (<1.2); Partial Thromboplastin Time 25.8 sec (22.0-30.0)
[2018-05-12 16:06] LABS: Albumin 3.4 g/dL (3.5-5.0); Calcium 9.3 mg/dL (8.4-10.2); Potassium 4.2 mmol/L (3.5-5.1); Total Bilirubin 0.7 mg/dL (0.2-1.3); Total Protein 6.1 g/dL (6.3-8.2)
[2018-05-12 16:07] LABS: Creatine Kinase <20 U/L (30-135)
--- NOTE | 2018-05-12 16:10 | XR ---
EXAMINATION TYPE: XR chest 2V DATE OF EXAM: 05/12/2018 COMPARISON: 04/10/2017 HISTORY: 82-year-old female with chest pain TECHNIQUE: PA and lateral views FINDINGS: Heart borderline enlarged. Hazy density at the cardiac apex suggests prominent epicardial fat pad. El ongation/ectasia of the thoracic aorta. Diffuse interstitial prominence is a chronic appearance. Some strandy atelectasis in the lower lungs. No definite consolidation or pleural effusion. IMPRESSION: Low lung volumes and chronic changes. No definite acute process.
[2018-05-12 16:20] LABS: Creatine Kinase MB 0.3 ng/mL (0.0-2.4); Troponin I <0.012 ng/mL (0.000-0.034)
[2018-05-12 17:33] VITALS: BP 159/92; PULSE 62; TEMP 98.1
== END 2018-05-12 17:38 | disposition home or self-care (01) ==
LOC: EC 13:58
DX: M25.512 Pain in left shoulder (principal); R07.89 Other chest pain; R07.81 Pleurodynia; M54.9 Dorsalgia, unspecified; E78.5 Hyperlipidemia, unspecified; I10 Essential (primary) hypertension; M19.90 Unspecified osteoarthritis, unspecified site; E07.9 Disorder of thyroid, unspecified; F41.9 Anxiety disorder, unspecified; Z79.1 Long term (current) use of non-steroidal anti-inflammatories (NSAID); Z79.899 Other long term (current) drug therapy; Z88.5 Allergy status to narcotic agent; Z88.6 Allergy status to analgesic agent; Z91.02 Food additives allergy status; Z85.3 Personal history of malignant neoplasm of breast; Z92.3 Personal history of irradiation; X50.9XXA Other and unspecified overexertion or strenuous movements or postures, initial encounter
CPT/HCPCS: 36415; 71046; 80053; 82550; 82553; 83735; 84484; 85025; 85610; 85730; 93005; 96360; 96361; 99284

== ENCOUNTER 2018-08-15 08:32 | Inpatient (IN) | payer MEDICARE ==
[2018-08-15] MEDS ORDERED: SODIUM CHLORIDE 0.9% 1,000 ML IV STA ×2 (09:21→11:05)
--- NOTE | 2018-08-15 09:23 | ED ---
General Adult HPI - General Chief complaint: Chest Pain Stated complaint: Chest Pain Time Seen by Provider: 08/15/18 08:48 Source: patient, RN notes reviewed Mode of arrival: EMS Limitations: no limitations - History of Present Illness Initial comments: Patient's a 83-year-old female presented to the emergency room today by EMS, the chief complaint of chest pain that started this morning when she woke up. She has not that she had a sharp pain in the middle of her chest. She states it 's gone away at this time. She states she still feeling nauseated. Patient denies any other complaints or symptoms currently. Patient denies any recent fever, chills, shortness of breath, abdominal pain, vomiting, numbness or tingling, dysuria or hematuria, constipation or diarrhea, headaches or visual changes, or any other complaints. - Related Data Home Medications Medication Instructions Recorded Confirmed Alendronate Sodium [Fosamax] 70 mg PO CRUZ 03/07/14 08/15/18 Citalopram Hydrobromide [CeleXA] 40 mg PO HS 03/07/14 08/15/18 Levothyroxine Sodium [Synthroid] 25 mcg PO HS 03/07/14 08/15/18 Meloxicam [Mobic] 7.5 mg PO QAM 03/07/14 08/15/18 Simvastatin [Zocor] 20 mg PO HS 11/08/15 08/15/18 Temazepam [Restoril] 30 mg PO HS 07/05/16 08/15/18 Anastrozole [Arimidex] 1 mg PO DAILY 10/16/16 08/15/18 Calcium Carb-Vit D 500Mg-200Un 1 tab PO DAILY 10/16/16 08/15/18 [Oscal 500+D] Multivitamins, Thera [Multivitamin 1 tab PO DAILY 10/16/16 08/15/18 (formulary)] Benazepril HCl 40 mg PO DAILY 04/10/17 08/15/18 Cholecalciferol [Vitamin D3] 1,000 unit PO DAILY 08/15/18 08/15/18 Allergies Allergy/AdvReac Type Severity Reaction Status Date / Time aspirin AdvReac Epistaxis Verified 08/15/18 09:06 codeine AdvReac Nausea Verified 08/15/18 09:06 morphine AdvReac Nausea Verified 08/15/18 09:06 sulfur dioxide AdvReac Nausea Verified 08/15/18 09:06 Review of Systems ROS Statement: Those systems with pertinent positive or pertinent negative responses have been documented in the HPI. ROS Other: All systems not noted in ROS Statement are negative. Past Medical History Past Medical History: Cancer, Hyperlipidemia, Hypertension, Thyroid Disorder Additional Past Medical History / Comment(s): arthritis, radiation for breast cancer History of Any Multi-Drug Resistant Organisms: None Reported Additional Past Surgical History / Comment(s): basal cell carcinoma, knee surgery L menincus Past Anesthesia/Blood Transfusion Reactions: No Reported Reaction Past Psychological History: Anxiety Smoking Status: Never smoker Past Alcohol Use History: None Reported Past Drug Use History: None Reported - Past Family History Mother Family Medical History: CVA/TIA Father Family Medical History: No Reported History Additional Family Medical History / Comment(s): from a fall Brother(s) Family Medical History: Cancer Additional Family Medical History / Comment(s): Prostate CA General Exam - General Exam Comments Initial Comments: General: The patient is awake and alert, in no distress, and does not appear acutely ill. Eye: Pupils are equal, round and reactive to light. Extra-ocular movements are intact. No nystagmus. There is normal conjunctiva bilaterally. No signs of icterus. Ears, nose, mouth and throat: There are moist mucous membranes and no oral lesions. Neck: The neck is supple, there is no tenderness or JVD. Cardiovascular: There is a regular rate and rhythm. No murmur, rub or gallop is appreciated. Respiratory: Lungs are clear to auscultation, respirations are non-labored, breath sounds are equal. No wheezes, stridor, rales, or rhonchi. Gastrointestinal: Soft, non-distended, non-tender abdomen without masses or organomegaly noted. There is no rebound or guarding present. No CVA tenderness. Bowel sounds are unremarkable. Musculoskeletal: Normal ROM, no tenderness. Sensation intact. Strength 5/5. Pulses equal bilaterally 2+. Neurological: A&O x 3. CN II-XII intact, There are no obvious motor or sensory deficits. Coordination appears grossly intact. Speech is normal. Skin: Skin is warm and dry and no rashes or lesions are noted. Psychiatric: Cooperative, appropriate mood & affect, normal judgment. Limitations: no limitations Course Vital Signs 08/15/18 08/15/18 08/15/18 09:10 09:16 09:20 Temperature 97.2 F L Pulse Rate 59 L 59 L 58 L Respiratory 18 13 6 L Rate Blood Pressure 83/52 83/52 O2 Sat by Pulse 96 99 Oximetry 08/15/18 08/15/18 08/15/18 09:30 09:40 09:50 Temperature Pulse Rate 58 L 56 L 55 L Respiratory 9 L 8 L 8 L Rate Blood Pressure 83/52 83/51 83/51 O2 Sat by Pulse 100 100 100 Oximetry 08/15/18 08/15/18 08/15/18 10:00 10:30 11:00 Temperature Pulse Rate 56 L 54 L 60 Respiratory 7 L 0 L 6 L Rate Blood Pressure 90/50 98/56 88/69 O2 Sat by Pulse 99 95 97 Oximetry 08/15/18 11:30 Temperature Pulse Rate 61 Respiratory 8 L Rate Blood Pressure 91/59 O2 Sat by Pulse 98 Oximetry EKG Findings - EKG Comments: EKG Findings:: EKG performed at 0848: Shows sinus bradycardia 58 bpm. MI interval 176. QRS 86. QT/QTc 526/516. No acute ST changes. Repeat EKG performed at 1046: Shows normal sinus rhythm at 60 beats per minute. MI interval 180. QRS 78. QT/QTC 502/502. Medical Decision Making - Medical Decision Making Patient labs reviewed negative. Patient's EKG showing no acute ST changes. Patient has had intermittent chest pain. She did have chest pain when she lay down and is currently resolved once again at this time. She denies any symptoms currently. Patient states that her chest pain started this morning proxy 7:30 AM. Patient will be admitted to the hospital for serial enzymes. Patient has been hypotensive here in the emergency room and has been bolused with IV fluids here in the emergency room showing some improvement. Patient does admit to nausea at times. Patient currently resting comfortably. Case discussed with attending physician Dr. Sutton who did discuss case with admitting physician. Patient will be admitted with consult cardiology. - Lab Data Result diagrams: 08/15/18 09:25 08/15/18 09:25 Lab Results 08/15/18 08/15/18 08/15/18 Range/Units 09:25 09:25 09:25 WBC 4.4 (3.8-10.6) k/uL RBC 4.19 (3.80-5.40) m/uL Hgb 12.2 (11.4-16.0) gm/dL Hct 38.5 (34.0-46.0) % MCV 91.7 (80.0-100.0) fL MCH 29.1 (25.0-35.0) pg MCHC 31.8 (31.0-37.0) g/dL RDW 13.7 (11.5-15.5) % Plt Count 199 (150-450) k/uL Neutrophils % 57 % Lymphocytes % 27 % Monocytes % 7 % Eosinophils % 4 % Basophils % 1 % Neutrophils # 2.5 (1.3-7.7) k/uL Lymphocytes # 1.2 (1.0-4.8) k/uL Monocytes # 0.3 (0-1.0) k/uL Eosinophils # 0.2 (0-0.7) k/uL Basophils # 0.1 (0-0.2) k/uL PT (9.0-12.0) sec INR (<1.2) APTT (22.0-30.0) sec Sodium 142 (137-145) mmol/L Potassium 3.8 (3.5-5.1) mmol/L Chloride 108 H (98-107) mmol/L Carbon Dioxide 29 (22-30) mmol/L Anion Gap 5 mmol/L BUN 16 (7-17) mg/dL Creatinine 0.76 (0.52-1.04) mg/dL Est GFR (CKD-EPI)AfAm 86 (>60 ml/min/1.73 sqM) Est GFR (CKD-EPI)NonAf 74 (>60 ml/min/1.73 sqM) Glucose 106 H (74-99) mg/dL Calcium 9.2 (8.4-10.2) mg/dL Magnesium 1.9 (1.6-2.3) mg/dL Total Bilirubin 0.3 (0.2-1.3) mg/dL AST 25 (14-36) U/L ALT 29 (9-52) U/L Alkaline Phosphatase 59 (38-126) U/L Total Creatine Kinase 22 L (30-135) U/L CK-MB (CK-2) 0.5 (0.0-2.4) ng/mL CK-MB (CK-2) Rel Index 2.3 Troponin I <0.012 (0.000-0.034) ng/mL Total Protein 6.0 L (6.3-8.2) g/dL Albumin 3.3 L (3.5-5.0) g/dL 08/15/18 Range/Units 09:25 WBC (3.8-10.6) k/uL RBC (3.80-5.40) m/uL Hgb (11.4-16.0) gm/dL Hct (34.0-46.0) % MCV (80.0-100.0) fL MCH (25.0-35.0) pg MCHC (31.0-37.0) g/dL RDW (11.5-15.5) % Plt Count (150-450) k/uL Neutrophils % % Lymphocytes % % Monocytes % % Eosinophils % % Basophils % % Neutrophils # (1.3-7.7) k/uL Lymphocytes # (1.0-4.8) k/uL Monocytes # (0-1.0) k/uL Eosinophils # (0-0.7) k/uL Basophils # (0-0.2) k/uL PT 13.6 H (9.0-12.0) sec INR 1.5 H (<1.2) APTT 25.1 (22.0-30.0) sec Sodium (137-145) mmol/L Potassium (3.5-5.1) mmol/L Chloride (98-107) mmol/L Carbon Dioxide (22-30) mmol/L Anion Gap mmol/L BUN (7-17) mg/dL Creatinine (0.52-1.04) mg/dL Est GFR (CKD-EPI)AfAm (>60 ml/min/1.73 sqM) Est GFR (CKD-EPI)NonAf (>60 ml/min/1.73 sqM) Glucose (74-99) mg/dL Calcium (8.4-10.2) mg/dL Magnesium (1.6-2.3) mg/dL Total Bilirubin (0.2-1.3) mg/dL AST (14-36) U/L ALT (9-52) U/L Alkaline Phosphatase (38-126) U/L Total Creatine Kinase (30-135) U/L CK-MB (CK-2) (0.0-2.4) ng/mL CK-MB (CK-2) Rel Index Troponin I (0.000-0.034) ng/mL Total Protein (6.3-8.2) g/dL Albumin (3.5-5.0) g/dL Critical Care Time Critical Care Time: Yes Total Critical Care Time: 10 Critical Care Time: 83-year-old female presented to the emergency room by EMS. I have Reexamined the patient multiple times. Initial exam patient was chest pain-free. Did complain about some nausea. Patient was hypotensive initially. Symptoms improved after IV fluids. Blood pressure has improved. Reevaluation shows mild improvement of blood pressure. She then developed chest pain. EKG was performed showing mild T-wave inversions in the lateral leads. Patient reexamined again and currently chest pain-free. Patient will be admitted to the hospital with repeat serial cardiac enzymes. Disposition Clinical Impression: Chest pain, Nausea, Weakness Disposition: ADMITTED IP TO THIS [facility] Condition: Stable Is patient prescribed a controlled substance at d/c from ED?: No Referrals: Carolyn Bright MD [Primary Care Provider] - 1-2 days Time of Disposition: 11:10
[2018-08-15 09:55] LABS: Basophils # (A) 0.1 k/uL (0-0.2); Basophils % (A) 1 %; Eosinophils # (A) 0.2 k/uL (0-0.7); Eosinophils % (A) 4 %; HCT 38.5 % (34.0-46.0); HGB 12.2 gm/dL (11.4-16.0); Lymphocytes # (A) 1.2 k/uL (1.0-4.8); Lymphocytes % (A) 27 %; MCH 29.1 pg (25.0-35.0); MCHC 31.8 g/dL (31.0-37.0); MCV 91.7 fL (80.0-100.0); Mean Platelet Volume 6.8; Monocytes # (A) 0.3 k/uL (0-1.0); Monocytes % (A) 7 %; Neutrophils # (A) 2.5 k/uL (1.3-7.7); Neutrophils % (A) 57 %; Platelet Count 199 k/uL (150-450); RBC 4.19 m/uL (3.80-5.40); RDW 13.7 % (11.5-15.5); WBC 4.4 k/uL (3.8-10.6)
[2018-08-15 10:02] LABS: INR 1.5 (<1.2); Partial Thromboplastin Time 25.1 sec (22.0-30.0); Prothrombin Time 13.6 sec (9.0-12.0)
[2018-08-15 10:18] LABS: Albumin 3.3 g/dL (3.5-5.0); Calcium 9.2 mg/dL (8.4-10.2); Magnesium 1.9 mg/dL (1.6-2.3); Potassium 3.8 mmol/L (3.5-5.1); Total Bilirubin 0.3 mg/dL (0.2-1.3)
[2018-08-15 10:19] LABS: Creatine Kinase 22 U/L (30-135)
[2018-08-15 10:34] LABS: Creatine Kinase MB 0.5 ng/mL (0.0-2.4); Troponin I <0.012 ng/mL (0.000-0.034)
[2018-08-15] MEDS ORDERED: ASPIRIN 81 MG PO STA (10:52)
[2018-08-15] MEDS ORDERED: SODIUM CHLORIDE 0.9% 500 ML 500 ML IV STA ×2 (11:05→12:02)
[2018-08-15] MEDS ORDERED: METOCLOPRAMIDE 5 MG/ML 2 ML VIAL IVP STA (11:09)
--- NOTE | 2018-08-15 11:21 | XR ---
EXAMINATION TYPE: XR chest 1V portable DATE OF EXAM: 08/15/2018 COMPARISON: Prior chest x-ray 05/12/2018 HISTORY: Chest pain TECHNIQUE: Single frontal view of the chest is obtained. FINDINGS: The aorta is dilated and may have increased in size in the interval. Patchy basilar density is present, patient is rotated. There is no pleural effusion or pneumothorax seen. The cardiac silh ouette size is enlarged. The osseous structures are similar, high riding right shoulder, bilateral shoulder arthropathy, the could be underlying chronic rotator cuff tear. IMPRESSION: Thoracic aortic aneurysm may be increased in size in the interval. Cardiomegaly. Possibl e basilar atelectasis.
[2018-08-15] MEDS ORDERED: NITROGLYCERIN SL TABS 0.4 MG TAB SUBLINGUAL PRN (11:56)
[2018-08-15] MEDS: HEPARIN SOD,PORK IN 0.45% NACL 25,000 UNIT in 0.45% NACL 1 500ML.BAG IV SCH (11:57)
[2018-08-15] MEDS ORDERED: PNEUMOCOCCAL VACC-PNEUMOVAX 23 25 MCG/0.5 ML VIAL IM ONE (13:16)
[2018-08-15] MEDS ORDERED: INFLUENZA VACCINE (6 MOS+) 60 MCG/0.5 ML SYRINGE IM ONE (13:16)
[2018-08-15 13:52] LABS: Amylase 43 U/L (30-110); Lipase 106 U/L (23-300)
--- NOTE | 2018-08-15 14:04 | P.CRDCN ---
History of Present Illness Consult date: 08/15/18 Consult reason: hypotension History of present illness: Mrs. Nicholson is a 83-year-old femalecame to the hospital with the complaint of chest pain and epigastric pain. Patient woke up when she had a sharp pain in the epigastric area pain did not radiate anywhere patient was still persists to have pain when she came to the emergency room in the emergency room she was nauseated and had one vomiting. And did not had any fever or chills. She denies any past cardiac history of myocardial infarction denies any history of for exertional angina patient has a history of for hyperlipidemia. The pain does not increase with breathing and patient did not had any shortness of breath. 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 History of Any Multi-Drug Resistant Organisms: None Reported Past Surgical History: Breast Surgery, Orthopedic Surgery, Tonsillectomy Additional Past Surgical History / Comment(s): Skin cancer removed from L side of nose, L knee surgery on meniscus, R breast lumpectomy, colonoscopy, bilateral cataract removals/lens implants. Past Anesthesia/Blood Transfusion Reactions: No Reported Reaction Past Psychological History: Anxiety, Depression Additional Psychological History / Comment(s): Pt resides alone. She uses a cane to ambulate. She drives. Smoking Status: Never smoker Past Alcohol Use History: None Reported Past Drug Use History: None Reported - Past Family History Mother Family Medical History: CVA/TIA Additional Family Medical History / Comment(s): Mother had a CVA. Father Family Medical History: No Reported History Additional Family Medical History / Comment(s): from a fall Brother(s) Family Medical History: Cancer Additional Family Medical History / Comment(s): Stage IV prostate CA that has gone to the bone Medications and Allergies Home Medications Medication Instructions Recorded Confirmed Type Alendronate Sodium [Fosamax] 70 mg PO CRUZ 03/07/14 08/15/18 History Citalopram Hydrobromide [CeleXA] 40 mg PO HS 03/07/14 08/15/18 History Levothyroxine Sodium [Synthroid] 25 mcg PO HS 03/07/14 08/15/18 History Meloxicam [Mobic] 7.5 mg PO QAM 03/07/14 08/15/18 History Simvastatin [Zocor] 20 mg PO HS 11/08/15 08/15/18 History Temazepam [Restoril] 30 mg PO HS 07/05/16 08/15/18 History Anastrozole [Arimidex] 1 mg PO DAILY 10/16/16 08/15/18 History Calcium Carb-Vit D 500Mg-200Un 1 tab PO DAILY 10/16/16 08/15/18 History [Oscal 500+D] Multivitamins, Thera [Multivitamin 1 tab PO DAILY 10/16/16 08/15/18 History (formulary)] Benazepril HCl 40 mg PO DAILY 04/10/17 08/15/18 History Cholecalciferol [Vitamin D3] 1,000 unit PO DAILY 08/15/18 08/15/18 History Allergies Allergy/AdvReac Type Severity Reaction Status Date / Time aspirin AdvReac Epistaxis Verified 08/15/18 09:06 codeine AdvReac Nausea Verified 08/15/18 09:06 morphine AdvReac Nausea Verified 08/15/18 09:06 sulfur dioxide AdvReac Nausea Verified 08/15/18 09:06 Physical Exam Vitals: Vital Signs Temp Pulse Resp BP Pulse Ox 08/15/18 11:30 61 18 91/59 98 08/15/18 11:00 60 18 88/69 97 08/15/18 10:30 54 L 18 98/56 95 08/15/18 10:00 56 L 17 90/50 99 08/15/18 09:50 55 L 16 83/51 100 08/15/18 09:40 56 L 17 83/51 100 08/15/18 09:30 58 L 9 L 83/52 100 08/15/18 09:20 58 L 6 L 83/52 99 08/15/18 09:16 59 L 13 08/15/18 09:10 97.2 F L 59 L 18 83/52 96 Intake and Output 08/14/18 08/15/18 08/15/18 22:59 06:59 14:59 Other: Weight 79.379 kg Patient's vital signs are reviewed. The patient is alert awake and in no acute distress. HEENT negative. Neck-supple no increase in JVP noted no carotid bruits noted. Chest-symmetrical. Heart-first and second heart sounds are normal. No S3 or S4 is noted. No significant murmurs are noted. Lungs bilateral good at entry is noted. No rales or rhonchi are noted Abdomen-soft. Liver and spleen are not enlarged. The bowel sounds are normal. No tenderness noted Extremities-peripheral pulses since are 2+. No significant leg edema noted. Neuro-no significant gross abnormality noted. Results 08/15/18 09:25 08/15/18 09:25 Cardiac Enzymes 08/15/18 08/15/18 Range/Units 09:25 09:25 AST 25 (14-36) U/L CK-MB (CK-2) 0.5 (0.0-2.4) ng/mL Troponin I <0.012 (0.000-0.034) ng/mL Coagulation 08/15/18 Range/Units 09:25 PT 13.6 H (9.0-12.0) sec APTT 25.1 (22.0-30.0) sec CBC 08/15/18 Range/Units 09:25 WBC 4.4 (3.8-10.6) k/uL RBC 4.19 (3.80-5.40) m/uL Hgb 12.2 (11.4-16.0) gm/dL Hct 38.5 (34.0-46.0) % Plt Count 199 (150-450) k/uL Comprehensive Metabolic Panel 08/15/18 Range/Units 09:25 Sodium 142 (137-145) mmol/L Potassium 3.8 (3.5-5.1) mmol/L Chloride 108 H (98-107) mmol/L Carbon Dioxide 29 (22-30) mmol/L BUN 16 (7-17) mg/dL Creatinine 0.76 (0.52-1.04) mg/dL Glucose 106 H (74-99) mg/dL Calcium 9.2 (8.4-10.2) mg/dL AST 25 (14-36) U/L ALT 29 (9-52) U/L Alkaline Phosphatase 59 (38-126) U/L Total Protein 6.0 L (6.3-8.2) g/dL Albumin 3.3 L (3.5-5.0) g/dL Current Medications Generic Name Dose Route Start Last Admin Trade Name Freq PRN Reason Stop Dose Admin Aspirin 325 mg 08/16/18 09:00 Aspirin PO DAILY JOSE RAMON Sodium Chloride 1,000 mls @ 100 mls/hr 08/15/18 11:05 08/15/18 11:12 Saline 0.9% IV 08/15/18 21:04 100 mls/hr .Q10H STA Administration Heparin Sodium/Sodium Chloride 500 mls @ 19.05 mls/hr 08/15/18 11:45 11:57 25,000 unit/ Sodium Chloride IV 12 units/kg/hr .Q24H JOSE RAMON 19.05 mls/hr Administration Protocol 12 UNITS/KG/HR Nitroglycerin 0.4 mg 08/15/18 11:56 Nitrostat SUBLINGUAL Q5M PRN Chest Pain Intake and Output 08/14/18 08/15/18 08/15/18 22:59 06:59 14:59 Other: Weight 79.379 kg Patient Weight 08/16/18 06:59 Weight 79.379 kg 08/15/18 09:25 08/15/18 09:25 EKG Interpretations (text) eKG shows a normal sinus rhythm with nonspecific T-wave changes. Assessment and Plan Assessment: his patient is primarily presented with the persistent epigastric pain associated with the nausea initial troponin and EKGs are normal. This pain does not is not suggestive for cardiac ischemic pain rule out any underlying peptic ulcer disease versus acute cholecystitis. We will do serial EKGs and cardiac enzymes. Echo and Doppler study would be done to get serum amylase and lipase recommend to treat the patient with Protonix and discontinued the Mobic at Present
--- NOTE | 2018-08-15 14:43 | US ---
EXAMINATION TYPE: US abdomen limited DATE OF EXAM: 08/15/2018 COMPARISON: NONE CLINICAL HISTORY: Abdominal pain. EXAM MEASUREMENTS: Liver Length: 13.6 cm Gallbladder Wall: 0.2 cm CBD: 0.4 cm Right Kidney: 9.7 x 4.4 x 4.8 cm Patient shallow breather, she had trouble taking a deep enough breath in to aid examiner. Extensive o verlying bowel gas midline. Limited exam Pancreas: Obscured by bowel gas Liver: somewhat limited evaluation Gallbladder: Filling defect measures 2.3 x 1.1 cm and does not demonstrate shadowing Evidence for sonographic Godwin's sign: no CBD: wnl Right Kidney: probable lateral kidney cyst, difficult to ascertain whether this is connected to kidn ey, measures 4.1 x 3.1 x 3.2cm IMPRESSION: 1. Filling defect intraluminally within the gallbladder could represent tumefactive sludge, sessile g allbladder polyp, nonshadowing gallbladder calculi or neoplasm. No current evidence of acute cholecys titis. 2. Coarsened hepatic echotexture most commonly relates to hepatic steatosis. Correlate with liver fun ction tests.
[2018-08-15] MEDS ORDERED: TEMAZEPAM 30 MG CAP PO PRN (15:32)
[2018-08-15] MEDS ORDERED: PANTOPRAZOLE 40 MG/10 ML VIAL IVP SCH (15:45)
[2018-08-15 16:04] LABS: Creatine Kinase 22 U/L (30-135)
[2018-08-15 16:18] LABS: Creatine Kinase MB 0.4 ng/mL (0.0-2.4); Troponin I <0.012 ng/mL (0.000-0.034)
--- NOTE | 2018-08-15 16:24 | P.HPIM ---
History of Present Illness 83-year-old pleasant female came in with complaints of pressure-like chest pain in the epigastric area today morning couple episodes pressure-like sensation moderate severity nonradiating no significant aggravating or relieving factors not associated with food does is associated with some lightheadedness patient had an ultrasound of the upper quadrant which did not show any cholecystitis did show some biliary sludge. Denied any vomiting. Denied any diaphoresis lightheadedness associated with denied any shortness of breath patient's episode lasts less than half an hour, nonexertional nonpleuritic in nature. EKG did not show any acute ST-T wave changes troponin is negative. Review of Systems REVIEW OF SYSTEMS: CONSTITUTIONAL: No fever, no malaise, no fatigue. HEENT: No recent visual problems or hearing problems. Denied any sore throat. CARDIOVASCULAR: No orthopnea, PND, no palpitations, no syncope. PULMONARY: No shortness of breath, no cough, no hemoptysis. GASTROINTESTINAL: No diarrhea, no nausea, no vomiting, no abdominal pain. Normoactive bowel sounds. NEUROLOGICAL: No headaches, no weakness, no numbness. HEMATOLOGICAL: Denies any bleeding or petechiae. GENITOURINARY: Denies any burning micturition, frequency, or urgency. MUSCULOSKELETAL/RHEUMATOLOGICAL: Denies any joint pain, swelling, or any muscle pain. ENDOCRINE: Denies any polyuria or polydipsia. The rest of the 14-point review of systems is negative. 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 History of Any Multi-Drug Resistant Organisms: None Reported Past Surgical History: Breast Surgery, Orthopedic Surgery, Tonsillectomy Additional Past Surgical History / Comment(s): Skin cancer removed from L side of nose, L knee surgery on meniscus, R breast lumpectomy, colonoscopy, bilateral cataract removals/lens implants. Past Anesthesia/Blood Transfusion Reactions: No Reported Reaction Past Psychological History: Anxiety, Depression Additional Psychological History / Comment(s): Pt resides alone. She uses a cane to ambulate. She drives. Smoking Status: Never smoker Past Alcohol Use History: None Reported Past Drug Use History: None Reported - Past Family History Mother Family Medical History: CVA/TIA Additional Family Medical History / Comment(s): Mother had a CVA. Father Family Medical History: No Reported History Additional Family Medical History / Comment(s): from a fall Brother(s) Family Medical History: Cancer Additional Family Medical History / Comment(s): Stage IV prostate CA that has gone to the bone Medications and Allergies Home Medications Medication Instructions Recorded Confirmed Type Alendronate Sodium [Fosamax] 70 mg PO CRUZ 03/07/14 08/15/18 History Citalopram Hydrobromide [CeleXA] 40 mg PO HS 03/07/14 08/15/18 History Levothyroxine Sodium [Synthroid] 25 mcg PO HS 03/07/14 08/15/18 History Meloxicam [Mobic] 7.5 mg PO QAM 03/07/14 08/15/18 History Simvastatin [Zocor] 20 mg PO HS 11/08/15 08/15/18 History Temazepam [Restoril] 30 mg PO HS 07/05/16 08/15/18 History Anastrozole [Arimidex] 1 mg PO DAILY 10/16/16 08/15/18 History Calcium Carb-Vit D 500Mg-200Un 1 tab PO DAILY 10/16/16 08/15/18 History [Oscal 500+D] Multivitamins, Thera [Multivitamin 1 tab PO DAILY 10/16/16 08/15/18 History (formulary)] Benazepril HCl 40 mg PO DAILY 04/10/17 08/15/18 History Cholecalciferol [Vitamin D3] 1,000 unit PO DAILY 08/15/18 08/15/18 History Allergies Allergy/AdvReac Type Severity Reaction Status Date / Time aspirin AdvReac Epistaxis Verified 08/15/18 09:06 codeine AdvReac Nausea Verified 08/15/18 09:06 morphine AdvReac Nausea Verified 08/15/18 09:06 sulfur dioxide AdvReac Nausea Verified 08/15/18 09:06 Physical Exam Vitals: Vital Signs Temp Pulse Resp BP Pulse Ox 08/15/18 15:11 97.2 F L 70 18 132/84 95 08/15/18 14:56 70 18 132/84 95 08/15/18 14:30 70 18 106/74 95 08/15/18 14:00 70 17 118/73 96 08/15/18 13:30 73 17 103/88 97 08/15/18 13:00 58 L 18 104/67 97 08/15/18 12:30 60 20 100/63 99 08/15/18 12:00 59 L 20 95/52 99 08/15/18 11:30 61 18 91/59 98 08/15/18 11:00 60 18 88/69 97 08/15/18 10:30 54 L 18 98/56 95 08/15/18 10:00 56 L 17 90/50 99 08/15/18 09:50 55 L 16 83/51 100 08/15/18 09:40 56 L 17 83/51 100 08/15/18 09:30 58 L 9 L 83/52 100 08/15/18 09:20 58 L 6 L 83/52 99 08/15/18 09:16 59 L 13 08/15/18 09:10 97.2 F L 59 L 18 83/52 96 Intake and Output 08/15/18 08/15/18 08/15/18 06:59 14:59 22:59 Other: Weight 79.379 kg PHYSICAL EXAMINATION: GENERAL: The patient is alert and oriented x3, not in any acute distress. Well developed, well nourished. HEENT: Pupils are round and equally reacting to light. EOMI. No scleral icterus. No conjunctival pallor. Normocephalic, atraumatic. No pharyngeal erythema. No thyromegaly. CARDIOVASCULAR: S1 and S2 present. No murmurs, rubs, or gallops. PULMONARY: Chest is clear to auscultation, no wheezing or crackles. ABDOMEN: Soft, nontender, nondistended, normoactive bowel sounds. No palpable organomegaly. MUSCULOSKELETAL: No joint swelling or deformity. EXTREMITIES: No cyanosis, clubbing, or pedal edema. NEUROLOGICAL: Gross neurological examination did not reveal any focal deficits. SKIN: No rashes. Results CBC & Chem 7: 08/15/18 09:25 08/15/18 09:25 Labs: Abnormal Lab Results - Last 24 Hours (Table) 08/15/18 08/15/18 08/15/18 Range/Units 09:25 09:25 09:25 PT 13.6 H (9.0-12.0) sec INR 1.5 H (<1.2) Chloride 108 H (98-107) mmol/L Glucose 106 H (74-99) mg/dL Total Creatine Kinase 22 L (30-135) U/L Total Protein 6.0 L (6.3-8.2) g/dL Albumin 3.3 L (3.5-5.0) g/dL 08/15/18 Range/Units 15:18 PT (9.0-12.0) sec INR (<1.2) Chloride (98-107) mmol/L Glucose (74-99) mg/dL Total Creatine Kinase 22 L (30-135) U/L Total Protein (6.3-8.2) g/dL Albumin (3.5-5.0) g/dL Thrombosis Risk Factor Assmnt - Choose All That Apply Any of the Below Risk Factors Present?: Yes Each Factor Represents 1 point: Obesity (BMI >25) Other Risk Factors: Yes Each Risk Factor Represents 2 Points: Malignancy Each Risk Factor Represents 3 Points: Age 75 years or older Other congenital or acquired thrombophilia - If yes, enter type in comment: No Thrombosis Risk Factor Assessment Total Risk Factor Score: 6 Thrombosis Risk Factor Assessment Level: High Risk Assessment and Plan Plan: -Chest pain: We will rule out acute medicine syndromes with 2 more sets of troponins and EKGs cardiology evaluated the patient is a possibility of gastritis controlled but into her symptoms patient was started on Protonix. Echocardiac exam is being obtained further decision regarding stress test as per cardiology. -Is aphasia of reflux disease -Hypertension -Hyperlipidemia -Sleep apnea -Hypothyroidism -Depression -History of breast cancer and is on hormone therapy history of left breast lumpectomy with radiation therapy For these above-mentioned chronic medical problems patient will be resumed on appropriate home medications and will be continued on these medications
[2018-08-15 16:39] LABS: Glucose,Whole Blood 113 mg/dL (75-99)
[2018-08-15] MEDS: CITALOPRAM HYDROBROMIDE 20 MG TAB PO SCH (20:08)
[2018-08-15] MEDS: MAG HYDROX/AL HYDROX/SIMETH 30 ML CUP PO PRN ×2 (20:08→23:53)
[2018-08-15] MEDS: ATORVASTATIN 10 MG TAB PO SCH (20:08)
[2018-08-15] MEDS: PANTOPRAZOLE 40 MG/10 ML VIAL IVP SCH (20:08)
[2018-08-15 21:18] LABS: Glucose,Whole Blood 118 mg/dL (75-99)
[2018-08-15 21:36] LABS: Creatine Kinase 26 U/L (30-135)
[2018-08-15 21:47] LABS: Creatine Kinase MB 0.3 ng/mL (0.0-2.4); Troponin I <0.012 ng/mL (0.000-0.034)
[2018-08-15] MEDS: LEVOTHYROXINE 25 MCG TAB PO SCH (21:47)
[2018-08-15] MEDS: ANASTROZOLE 1 MG TAB PO SCH (21:47)
[2018-08-16 07:20] LABS: Cholesterol 159 mg/dL (<200); HDL Cholesterol 51 mg/dL (40-60); LDL Cholesterol,Calculated 89 mg/dL (0-99); Triglycerides 97 mg/dL (<150)
[2018-08-16] MEDS ORDERED: ANASTROZOLE 1 MG TAB PO SCH (09:00)
[2018-08-16] MEDS: LISINOPRIL 20 MG TAB PO SCH (09:19)
[2018-08-16] MEDS: PANTOPRAZOLE 40 MG/10 ML VIAL IVP SCH ×2 (09:19→21:40)
[2018-08-16] MEDS: MAG HYDROX/AL HYDROX/SIMETH 30 ML CUP PO PRN (09:19)
[2018-08-16] MEDS: ASPIRIN 325 MG TAB PO SCH (09:19)
[2018-08-16] MEDS ORDERED: DOBUTamine DRIP for NUC MED 500 MG in DEXTROSE/WATER 1 250ML.BAG IV ONE (10:46)
--- NOTE | 2018-08-16 11:05 | P.DS ---
Providers Date of admission: 08/15/18 12:14 Attending physician: Vitaly Kay Consults: 08/15/18 11:56 Consult Physician Stat Consulting Provider: [facility] Consult Reason/Comments: Unstable angina Do you want consulting provider notified?: Yes Primary care physician: Carolyn Bright [facility] Course: 83-year-old pleasant female came in with complaints of pressure-like chest pain in the epigastric area today morning couple episodes pressure-like sensation moderate severity nonradiating no significant aggravating or relieving factors not associated with food does is associated with some lightheadedness patient had an ultrasound of the upper quadrant which did not show any cholecystitis did show some biliary sludge. Denied any vomiting. Denied any diaphoresis lightheadedness associated with denied any shortness of breath patient's episode lasts less than half an hour, nonexertional nonpleuritic in nature. EKG did not show any acute ST-T wave changes troponin is negative. 08/16/2018 Patient is clinically doing well today patient has some biliary sludge in the gallbladder polyp which need to be evaluated as an outpatient by's general surgery. Patient will undergo stress test today discuss with cardiology if that is negative patient will be discharged to follow Dr. Bright as an outpatient. PHYSICAL EXAMINATION: GENERAL: The patient is alert and oriented x3, not in any acute distress. Well developed, well nourished. HEENT: Pupils are round and equally reacting to light. EOMI. No scleral icterus. No conjunctival pallor. Normocephalic, atraumatic. No pharyngeal erythema. No thyromegaly. CARDIOVASCULAR: S1 and S2 present. No murmurs, rubs, or gallops. PULMONARY: Chest is clear to auscultation, no wheezing or crackles. ABDOMEN: Soft, nontender, nondistended, normoactive bowel sounds. No palpable organomegaly. MUSCULOSKELETAL: No joint swelling or deformity. EXTREMITIES: No cyanosis, clubbing, or pedal edema. NEUROLOGICAL: Gross neurological examination did not reveal any focal deficits. SKIN: No rashes. Assessment and Plan Plan: -Chest pain: Rule out acute coronary syndromes, patient will undergo stress test if that's negative patient will be discharged patient's symptoms may be related to gastritis, meloxicam was discontinued -Gastroesophageal reflux disease -Hypertension -Hyperlipidemia -Sleep apnea -Hypothyroidism -Depression -History of breast cancer and is on hormone therapy history of left breast lumpectomy with radiation therapy For these above-mentioned chronic medical problems patient will be resumed on appropriate home medications and will be continued on these medications Patient Condition at Discharge: Stable Plan - Discharge Summary Discharge Rx Participant: No New Discharge Prescriptions: New Omeprazole [PriLOSEC] 40 mg PO AC-BRKFST #14 capsule. Discontinued Meloxicam [Mobic] 7.5 mg PO QAM No Action Levothyroxine Sodium [Synthroid] 25 mcg PO HS Citalopram Hydrobromide [CeleXA] 40 mg PO HS Alendronate Sodium [Fosamax] 70 mg PO CRUZ Simvastatin [Zocor] 20 mg PO HS Temazepam [Restoril] 30 mg PO HS Multivitamins, Thera [Multivitamin (formulary)] 1 tab PO DAILY Calcium Carb-Vit D 500Mg-200Un [Oscal 500+D] 1 tab PO DAILY Anastrozole [Arimidex] 1 mg PO DAILY Benazepril HCl 40 mg PO DAILY Cholecalciferol [Vitamin D3] 1,000 unit PO DAILY Discharge Medication List Alendronate Sodium [Fosamax] 70 mg PO CRUZ 03/07/14 [History] Citalopram Hydrobromide [CeleXA] 40 mg PO HS 03/07/14 [History] Levothyroxine Sodium [Synthroid] 25 mcg PO HS 03/07/14 [History] Simvastatin [Zocor] 20 mg PO HS 11/08/15 [History] Temazepam [Restoril] 30 mg PO HS 07/05/16 [History] Anastrozole [Arimidex] 1 mg PO DAILY 10/16/16 [History] Calcium Carb-Vit D 500Mg-200Un [Oscal 500+D] 1 tab PO DAILY 10/16/16 [History] Multivitamins, Thera [Multivitamin (formulary)] 1 tab PO DAILY 10/16/16 [History ] Benazepril HCl 40 mg PO DAILY 04/10/17 [History] Cholecalciferol [Vitamin D3] 1,000 unit PO DAILY 08/15/18 [History] Omeprazole [PriLOSEC] 40 mg PO AC-BRKFST #14 capsule. 08/16/18 [Rx] Follow up Appointment(s)/Referral(s): Carolyn Bright MD [Primary Care Provider] - 3 Days Discharge Disposition: HOME SELF-CARE
--- NOTE | 2018-08-16 11:59 | ECHOF ---
Referral Reason:chest pain MEASUREMENTS -------- HEIGHT: 165.1 cm WEIGHT: 79.4 kg BP: 91/59 RVIDd: 3.7 cm (< 3.3) IVSd: 1.4 cm (0.6 - 1.1) LVIDd: 4.0 cm (3.9 - 5.3) LVPWd: 1.2 cm (0.6 - 1.1) IVSs: 1.7 cm LVIDs: 2.7 cm LVPWs: 1.6 cm LA Diam: 3.4 cm (2.7 - 3.8) LAESV Index (A-L): 34.03 ml/m Ao Diam: 3.5 cm (2.0 - 3.7) AV Cusp: 1.8 cm (1.5 - 2.6) EPSS: 1.0 cm MV E Oni: 1.02 m/s MV DecT: 192 ms MV A Oni: 1.24 m/s MV E/A Ratio: 0.82 AR PHT: 503 ms RAP: 15.00 mmHg RVSP: 40.14 mmHg MV EF SLOPE: 74.03 mm/s (70 - 150) MV EXCURSION: 0.86 cm (> 18.000) FINDINGS -------- Sinus rhythm. This was a technically good study. The left ventricular size is normal. There is moderate concentric left ventricular hypertrophy. O verall left ventricular systolic function is normal with, an EF between 55 - 60 %. The right ventricle is mildly enlarged. LA is moderately dilated 34-39 ml/m2 The right atrium is normal in size. There is mild aortic valve sclerosis. There is mild aortic regurgitation. The mitral valve leaflets are mildly thickened. Mild mitral annular calcification present. Mild tricuspid regurgitation present. There is mild pulmonary hypertension. Trace/mild (physiologic) pulmonic regurgitation. The aortic root size is normal. The inferior vena cava is dilated with poor inspiratory collapse which is consistent with estimated r ight atrial pressure of 15 mmHg. There is no pericardial effusion. CONCLUSIONS -------- 1. Sinus rhythm. 2. This was a technically good study. 3. The left ventricular size is normal. 4. There is moderate concentric left ventricular hypertrophy. 5. Overall left ventricular systolic function is normal with, an EF between 55 - 60 %. 6. The right ventricle is mildly enlarged. 7. LA is moderately dilated 34-39 ml/m2 8. The right atrium is normal in size. 9. There is mild aortic valve sclerosis. 10. There is mild aortic regurgitation. 11. The mitral valve leaflets are mildly thickened. 12. Mild mitral annular calcification present. 13. Mild tricuspid regurgitation present. 14. There is mild pulmonary hypertension. 15. Trace/mild (physiologic) pulmonic regurgitation. 16. The aortic root size is normal. 17. The inferior vena cava is dilated with poor inspiratory collapse which is consistent with estimat ed right atrial pressure of 15 mmHg. 18. There is no pericardial effusion. TOOL WORKER: KATIE Balderas
--- NOTE | 2018-08-16 12:29 | ECHOS ---
STRESS ECHOCARDIOGRAM DOBUTAMINE STRESS ECHOCARDIOGRAM DATE OF SERVICE: 08/16/2018 INDICATIONS OF THE STUDY: Chest discomfort. MEDICATIONS: BASELINE HEART RATE: 94 BASELINE BLOOD PRESSURE: 165/86 MAXIMUM HEART RATE: 125 MAXIMUM BLOOD PRESSURE: 171/74 85% MPHR: 118 100% MPHR: 139 METS: MAXIMUM STAGE REACHED: TOTAL EXERCISE TIME: CLINICAL INFORMATION: STRESS DATA: Pretesting physical examination showed a heart rate of 94, pressure is 165/86 mmHg. Baseline EKG showed sinus mechanism. Dobutamine infusion at a dose of 10 mcg/kg per minute was initiated and increased to 20 mcg/kg per minute. Max heart rate was 125, which is about 90% of maximum predicted heart rate. Maximum blood pressure was 171/74 mmHg. Clinically, the patient did not have any symptoms of chest pain or discomfort and the EKG did not show any significant ST or T-wave abnormalities concerning for ischemia. ECHOCARDIOGRAM IMAGES: On echo images from parasternal long axis view, parasternal short axis view, apical 4 chamber and apical 2 chamber view were obtained at low-dose dobutamine infusion, at the peak of the heart rate as well as on recovery. The echocardiogram images showed good augmentation in the left ventricular systolic function without any evidence of wall motion abnormalities concerning for ischemia. CONCLUSION: 1. Normal EKG response to dobutamine. 2. Normal echocardiogram in response to dobutamine. 3. Essentially normal dobutamine stress echocardiogram for the patient. MMODL / IJN: [id number] /
--- NOTE | 2018-08-16 15:22 | P.PN ---
Subjective Progress Note Date: 08/16/18 Mrs. Nicholson is a 83-year-old femalecame to the hospital with the complaint of chest pain and epigastric pain. Patient woke up when she had a sharp pain in the epigastric area pain did not radiate anywhere patient was still persists to have pain when she came to the emergency room in the emergency room she was nauseated and had one vomiting. And did not had any fever or chills. She denies any past cardiac history of myocardial infarction denies any history of for exertional angina patient has a history of for hyperlipidemia. EKG did not show any acute changes, troponins were negative. She was recommended to undergo dobutamine echocardiographic study which was performed today. Study was negative for any reversible ischemia. Echocardiogram with Doppler study was performed which revealed an ejection fraction of 55-60%. Blood pressure 148 /90 with a heart rate of 90, 95% on room air. Objective - Vital Signs Vital signs: Vital Signs Temp 98.6 F 08/16/18 08:00 Pulse 92 08/16/18 12:00 Resp 16 08/16/18 12:00 BP 148/92 08/16/18 12:00 Pulse Ox 95 08/16/18 12:00 Intake & Output 08/15/18 08/16/18 08/16/18 18:59 06:59 18:59 Intake Total 200 200 Balance 200 200 Weight 79.379 kg 84.7 kg Intake: Oral 200 200 Other: # Voids 1 1 1 - Exam Patient's vital signs are reviewed. The patient is alert awake and in no acute distress. HEENT negative. Neck-supple no increase in JVP noted no carotid bruits noted. Chest-symmetrical. Heart-first and second heart sounds are normal. No S3 or S4 is noted. No significant murmurs are noted. Lungs bilateral good at entry is noted. No rales or rhonchi are noted Abdomen-soft. Liver and spleen are not enlarged. The bowel sounds are normal. No tenderness noted Extremities-peripheral pulses since are 2+. No significant leg edema noted. Neuro-no significant gross abnormality noted. - Labs CBC & Chem 7: 08/15/18 09:25 08/15/18 09:25 Labs: Abnormal Lab Results - Last 24 Hours (Table) 08/15/18 08/15/18 08/15/18 Range/Units 15:18 16:36 20:54 POC Glucose (mg/dL) 113 H (75-99) mg/dL Total Creatine Kinase 22 L 26 L (30-135) U/L 08/15/ Range/Units 21:13 POC Glucose (mg/dL) 118 H (75-99) mg/dL Total Creatine Kinase (30-135) U/L Assessment and Plan Plan: Assessment and plan #1 epigastric discomfort, atypical symptoms for acute coronary syndrome. Dobutamine echocardiographic study performed today was negative for any reversible ischemia. Echo revealed normal left ventricular systolic function. #2 hyperlipidemia Plan From cardiology's perspective, patient may be able to be discharged home today. We'll make a follow-up appointment in the office post discharge. DNP note has been reviewed, I agree with a documented findings and plan of care. Patient was seen and examined.
[2018-08-16] MEDS: HEPARIN SOD,PORK IN 0.45% NACL 25,000 UNIT in 0.45% NACL 1 500ML.BAG IV SCH (17:04)
[2018-08-16] MEDS: ANASTROZOLE 1 MG TAB PO SCH (21:39)
[2018-08-16] MEDS: CITALOPRAM HYDROBROMIDE 20 MG TAB PO SCH (21:40)
[2018-08-16] MEDS: LEVOTHYROXINE 25 MCG TAB PO SCH (21:40)
[2018-08-16] MEDS: ATORVASTATIN 10 MG TAB PO SCH (21:40)
[2018-08-17] MEDS: PANTOPRAZOLE 40 MG/10 ML VIAL IVP SCH (08:11)
[2018-08-17] MEDS: ASPIRIN 325 MG TAB PO SCH (08:12)
[2018-08-17] MEDS: LISINOPRIL 20 MG TAB PO SCH (08:12)
[2018-08-17 08:25] VITALS: RESP 18
--- NOTE | 2018-08-17 10:09 | P.DS ---
Providers Date of admission: 08/15/18 12:14 Attending physician: Vitaly Kay Consults: 08/15/18 11:56 Consult Physician Stat Consulting Provider: [facility] Consult Reason/Comments: Unstable angina Do you want consulting provider notified?: Yes 08/16/18 17:31 Consult Physician Stat Consulting Provider: Demetrice Koehler Consult Reason/Comments: to evaluate GB Do you want consulting provider notified?: Yes [facility] Course: Patient was not discharged yesterday because she was nauseous after stress test she is not nauseous now but she is comparing of loss of appetite which can be evaluated as an outpatient. Regarding the gallbladder surgery has symptomatology is not consistent with cholecystitis or cholelithiasis. There is no emergent need for surgical evaluation which can be done as an outpatient. Patient will be discharged today discussed with the patient. Cleared her concerns. Please refer to my dictation of discharge summary from yesterday for further details. PHYSICAL EXAMINATION: GENERAL: The patient is alert and oriented x3, not in any acute distress. Well developed, well nourished. HEENT: Pupils are round and equally reacting to light. EOMI. No scleral icterus. No conjunctival pallor. Normocephalic, atraumatic. No pharyngeal erythema. No thyromegaly. CARDIOVASCULAR: S1 and S2 present. No murmurs, rubs, or gallops. PULMONARY: Chest is clear to auscultation, no wheezing or crackles. ABDOMEN: Soft, nontender, nondistended, normoactive bowel sounds. No palpable organomegaly. MUSCULOSKELETAL: No joint swelling or deformity. EXTREMITIES: No cyanosis, clubbing, or pedal edema. NEUROLOGICAL: Gross neurological examination did not reveal any focal deficits. SKIN: No rashes. Patient Condition at Discharge: Stable Plan - Discharge Summary Discharge Rx Participant: No New Discharge Prescriptions: New Omeprazole [PriLOSEC] 40 mg PO -BRKFST #14 capsule.dr Discontinued Meloxicam [Mobic] 7.5 mg PO QAM No Action Levothyroxine Sodium [Synthroid] 25 mcg PO HS Citalopram Hydrobromide [CeleXA] 40 mg PO HS Alendronate Sodium [Fosamax] 70 mg PO CRUZ Simvastatin [Zocor] 20 mg PO HS Temazepam [Restoril] 30 mg PO HS Multivitamins, Thera [Multivitamin (formulary)] 1 tab PO DAILY Calcium Carb-Vit D 500Mg-200Un [Oscal 500+D] 1 tab PO DAILY Anastrozole [Arimidex] 1 mg PO DAILY Benazepril HCl 40 mg PO DAILY Cholecalciferol [Vitamin D3] 1,000 unit PO DAILY Discharge Medication List Alendronate Sodium [Fosamax] 70 mg PO CRUZ 03/07/14 [History] Citalopram Hydrobromide [CeleXA] 40 mg PO HS 03/07/14 [History] Levothyroxine Sodium [Synthroid] 25 mcg PO HS 03/07/14 [History] Simvastatin [Zocor] 20 mg PO HS 11/08/15 [History] Temazepam [Restoril] 30 mg PO HS 07/05/16 [History] Anastrozole [Arimidex] 1 mg PO DAILY 10/16/16 [History] Calcium Carb-Vit D 500Mg-200Un [Oscal 500+D] 1 tab PO DAILY 10/16/16 [History] Multivitamins, Thera [Multivitamin (formulary)] 1 tab PO DAILY 10/16/16 [History ] Benazepril HCl 40 mg PO DAILY 04/10/17 [History] Cholecalciferol [Vitamin D3] 1,000 unit PO DAILY 08/15/18 [History] Omeprazole [PriLOSEC] 40 mg PO AC-BRKFST #14 capsule. 08/16/18 [Rx] Follow up Appointment(s)/Referral(s): Carolyn Bright MD [Primary Care Provider] - 08/17/18 1:15 pm ( -previously scheduled appointment) Abdoulaye Reaves MD [STAFF PHYSICIAN] - 08/30/18 4:00 pm (Tuesday) Patient Instructions/Handouts: Gastritis (DC) Discharge Disposition: HOME SELF-CARE
[2018-08-17 11:38] VITALS: BP 102/57; PULSE 100; TEMP 97.1
== END 2018-08-17 12:42 | disposition home or self-care (01) | DRG 392 ==
LOC: EC 08:32 → 3SCARD 12:14
PROVIDERS: ADMIT Hospitalist; ATTEND Hospitalist
DX: K29.70 Gastritis, unspecified, without bleeding (principal); R47.01 Aphasia; E03.9 Hypothyroidism, unspecified; E78.5 Hyperlipidemia, unspecified; F32.9 Major depressive disorder, single episode, unspecified; F41.9 Anxiety disorder, unspecified; G47.33 Obstructive sleep apnea (adult) (pediatric); I10 Essential (primary) hypertension; K21.9 Gastro-esophageal reflux disease without esophagitis; K82.4 Cholesterolosis of gallbladder; M41.9 Scoliosis, unspecified; M81.0 Age-related osteoporosis without current pathological fracture; Z79.83 Long term (current) use of bisphosphonates; Z82.3 Family history of stroke; Z85.3 Personal history of malignant neoplasm of breast; Z85.828 Personal history of other malignant neoplasm of skin; Z92.3 Personal history of irradiation; Z98.42 Cataract extraction status, left eye; Z98.41 Cataract extraction status, right eye; Z96.1 Presence of intraocular lens; Z88.6 Allergy status to analgesic agent; Z88.5 Allergy status to narcotic agent; Z88.8 Allergy status to other drugs, medicaments and biological substances; Z60.2 Problems related to living alone; Z79.890 Hormone replacement therapy; Z79.899 Other long term (current) drug therapy; H91.93 Unspecified hearing loss, bilateral; Z80.42 Family history of malignant neoplasm of prostate; M15.9 Polyosteoarthritis, unspecified; I83.93 Asymptomatic varicose veins of bilateral lower extremities; I95.9 Hypotension, unspecified; Z79.1 Long term (current) use of non-steroidal anti-inflammatories (NSAID)
CPT/HCPCS: 36415; 71045; 76705; 80053; 80061; 82150; 82550; 82553; 83690; 83735; 84484; 85025; 85610; 85730; 90686; 90732; 93005; 93306; 93351; 96361; 96365; 96366; 96375; 99285

== ENCOUNTER 2018-09-14 13:47 | Emergency (ER) | payer MEDICARE ==
[2018-09-14 14:07] VITALS: TEMP 99.3
[2018-09-14] MEDS ORDERED: SODIUM CHLORIDE 0.9% 1,000 ML IV STA (14:26)
[2018-09-14 15:02] LABS: INR 1.1 (<1.2); Partial Thromboplastin Time 23.8 sec (22.0-30.0); Prothrombin Time 11.9 sec (9.0-12.0)
[2018-09-14 15:03] LABS: ALT 28 U/L (9-52); AST 33 U/L (14-36); Alkaline Phosphatase 96 U/L (38-126); Anion Gap 5 mmol/L; Blood Urea Nitrogen 15 mg/dL (7-17); Calcium 9.1 mg/dL (8.4-10.2); Carbon Dioxide 29 mmol/L (22-30); Chloride 106 mmol/L (98-107); Glucose 109 mg/dL (74-99); Magnesium 2.2 mg/dL (1.6-2.3); Potassium 4.6 mmol/L (3.5-5.1); Sodium 140 mmol/L (137-145); Total Bilirubin 0.4 mg/dL (0.2-1.3); Total Protein 6.6 g/dL (6.3-8.2)
[2018-09-14 15:09] LABS: Basophils % (A) 0 %; Eosinophils # (A) 0.2 k/uL (0-0.7); Eosinophils % (A) 3 %; HCT 32.4 % (34.0-46.0); HGB 10.3 gm/dL (11.4-16.0); Hypochromasia Slight; Lymphocytes # (A) 1.1 k/uL (1.0-4.8); Lymphocytes % (A) 18 %; MCH 28.6 pg (25.0-35.0); MCV 89.5 fL (80.0-100.0); Mean Platelet Volume 7.5; Monocytes # (A) 0.6 k/uL (0-1.0); Monocytes % (A) 10 %; Neutrophils # (A) 3.9 k/uL (1.3-7.7); Neutrophils % (A) 66 %; Platelet Count 419 k/uL (150-450); RBC 3.62 m/uL (3.80-5.40); RDW 14.1 % (11.5-15.5); WBC 5.9 k/uL (3.8-10.6)
[2018-09-14 15:23] LABS: Creatine Kinase <20 U/L (30-135)
[2018-09-14 15:34] LABS: Creatine Kinase MB <0.2 ng/mL (0.0-2.4); Troponin I <0.012 ng/mL (0.000-0.034)
--- NOTE | 2018-09-14 15:47 | CT ---
EXAMINATION TYPE: CT angio thor/abd pel aorta DATE OF EXAM: 09/14/2018 3:22 PM COMPARISON: 08/28/2018 CT chest[facility] HISTORY: Known aneurysm. CT DLP: 2059.3 mGycm Automated exposure control for dose reduction was used. TECHNIQUE: Performed without and with IV Contrast, patient injected with 2059.3 mL of Isovue 370. Three-D reconstructed images performed at the technologist are reviewed. FINDINGS: CT chest: Lung windows are clear. Vascular calcifications within the aorta. Scattered small lymph nod es are within the mediastinum. The ascending thoracic aorta at the level the main pulmonary artery is 3.4 cm patent main pulmonary artery the bifurcation is 3.1 cm. Calcification is within the tracheobr onchial tree. Coronary artery calcifications present. Thyroid appears prominent. CT abdomen: There is a 4.6 cm cyst measuring 1 Hounsfield unit within the posterior upper left kidne y. 8.1 cm cyst is in the anterior lateral left kidney measuring 11 Hounsfield units. There is a media l upper left renal cyst measuring 3.4 cm and 24 Hounsfield units. There is a 2.8 cm cyst measuring 11 Hounsfield units on the mid to upper right kidney. Exophytic cyst appears to be present from the pos terior right mid kidney measuring 3.9 cm 20 Hounsfield units. Additional smaller cortical renal cysts are present. Study is performed without oral contrast limiting loops of bowel evaluation. There is a 0.7 cm hypodensity within the posterior right lobe liver near the diaphragm. Liver appears moderate ly fatty infiltrated. CT PELVIS: Fecal debris is at the rectum. Uterus appears unremarkable. Loops of bowel without contras t are unremarkable. Vascular calcifications within the aorta. Inferior vena cava is unremarkable. Aorta: Moderate and increasing pericardial fluid surrounds the heart measuring 1.7 cm in depth. This appears increased from 1.3 cm comparison. Aneurysm along the lateral posterior aortic arch measures 1.3 cm on this examination. Fluid surrounding the descending thoracic aortic arch appears diminished from comparison. The small a mount of contrast extending from the proximal descending thoracic aorta along the lateral aspect is a gain evident. This contrast-filled area is smaller than the comparison. The flow lumen of the descending thoracic aorta is 3.8 cm. This tapers to the distal thoracic aorta p ortion. There is some calcification of the distal descending thoracic aorta. A couple small punctate areas of contrast extension into the fluid which appears to be beyond the calcified aortic wall measu ring 0.6 and 0.7 cm may be present laterally just above the diaphragm. Series 501 image 67. Below the diaphragm aorta has a more typical appearance with vascular calcifications within the aorta and a normal caliber with tapering appearance. There is symmetrical flow to the bilateral kidneys. T he superior mesenteric artery and celiac axis appear normal. The inferior mesenteric artery is small. The aortic bifurcation is unremarkable. Internal and external iliac vessels are patent. Common femor al arteries are patent. Profunda femoris and proximal superficial femoral arteries are patent. No ane urysmal dilatation is evident within the abdominal aorta and additional arterial structures below the diaphragm. IMPRESSION: SEVERAL SMALL PROTRUSIONS OF CONTRAST FROM THE DESCENDING THORACIC AORTA WITH FLUID SURROUNDING THE D ESCENDING THORACIC AORTA AND A PERICARDIAL FLUID SUGGEST THE POSSIBILITY OF PSEUDOANEURYSM WITH LEAK. NO EXTRAVASATION OF CONTRAST BEYOND THE EXPECTED AORTIC WALL IS EVIDENT. DISSECTION DOES NOT APPEAR PRESENT ON THE CURRENT EXAM. THE FLUID SURROUNDING THE DESCENDING THORACIC AORTA IS DIMINISHED COMPAR ED TO PRIOR EXAMINATION. THE PERICARDIAL EFFUSION HOWEVER HAS INCREASED OVER THE INTERVAL. HEMOPERICA RDIUM SHOULD BE CONSIDERED WITHIN THE DIFFERENTIAL. REPORT WAS CALLED, CASE DISCUSSED WITH THE EMERGE [facility] ROOM PHYSICIAN DR. MARIE BY DR. SAINI BY TELEPHONE AT THE TIME OF PRELIMINARY INTERPRETATION [phone] HOURS 09/14/2018.
--- NOTE | 2018-09-14 16:42 | ED ---
General Adult HPI - General Chief complaint: Recheck/Abnormal Lab/Rx Stated complaint: vascular surgery Time Seen by Provider: 09/14/18 14:15 Source: patient, EMS, RN notes reviewed Mode of arrival: EMS Limitations: no limitations - History of Present Illness Initial comments: 83-year-old female presented emergency department for abnormal chest x-ray. Patient has had known thoracic aneurysm. Patient had chest x-ray today to rule out recurrent pneumonia and they felt that her x-ray was different from her prior. Patient was sent emergency department for further evaluation and CT. Patient states that she has no symptoms denies chest pain, shortness breath, back pain, headache, dizziness. Patient states she currently stays at [facility]. Patient states that she did have a CT a few weeks ago. - Related Data Home Medications Medication Instructions Recorded Confirmed Alendronate Sodium [Fosamax] 70 mg PO CRUZ 03/07/14 09/14/18 Citalopram Hydrobromide [CeleXA] 40 mg PO HS 03/07/14 09/14/18 Levothyroxine Sodium [Synthroid] 25 mcg PO HS 03/07/14 09/14/18 Simvastatin [Zocor] 20 mg PO HS 11/08/15 09/14/18 Temazepam [Restoril] 30 mg PO HS 07/05/16 09/14/18 Anastrozole [Arimidex] 1 mg PO DAILY 10/16/16 09/14/18 Calcium Carb-Vit D 500Mg-200Un 1 tab PO DAILY 10/16/16 09/14/18 [Oscal 500+D] Multivitamins, Thera [Multivitamin 1 tab PO DAILY 10/16/16 09/14/18 (formulary)] Benazepril HCl 40 mg PO DAILY 04/10/17 09/14/18 Cetirizine HCl 10 mg PO DAILY 09/14/18 09/14/18 Cholecalciferol [Vitamin D3] 5,000 unit PO DAILY 09/14/18 09/14/18 Folic Acid 1 mg PO DAILY 09/14/18 09/14/18 Vitamin B Complex 1 cap PO DAILY 09/14/18 09/14/18 Previous Rx's Medication Instructions Recorded Omeprazole [PriLOSEC] 40 mg PO REBECCA-TONYKFST #14 capsule. 08/16/18 Allergies Allergy/AdvReac Type Severity Reaction Status Date / Time aspirin AdvReac Epistaxis Verified 09/14/18 14:39 codeine AdvReac Nausea Verified 09/14/18 14:39 morphine AdvReac Nausea Verified 09/14/18 14:39 sulfur dioxide AdvReac Nausea Verified 09/14/18 14:39 Review of Systems ROS Statement: Those systems with pertinent positive or pertinent negative responses have been documented in the HPI. ROS Other: All systems not noted in ROS Statement are negative. 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 History of Any Multi-Drug Resistant Organisms: None Reported Past Surgical History: Breast Surgery, Orthopedic Surgery, Tonsillectomy Additional Past Surgical History / Comment(s): Skin cancer removed from L side of nose, L knee surgery on meniscus, R breast lumpectomy, colonoscopy, bilateral cataract removals/lens implants. Past Anesthesia/Blood Transfusion Reactions: No Reported Reaction Past Psychological History: Anxiety, Depression Smoking Status: Never smoker Past Alcohol Use History: None Reported Past Drug Use History: None Reported - Past Family History Mother Family Medical History: CVA/TIA Additional Family Medical History / Comment(s): Mother had a CVA. Father Family Medical History: No Reported History Additional Family Medical History / Comment(s): from a fall Brother(s) Family Medical History: Cancer Additional Family Medical History / Comment(s): Stage IV prostate CA that has gone to the bone General Exam Limitations: no limitations General appearance: alert, in no apparent distress Head exam: Present: atraumatic, normocephalic, normal inspection Eye exam: Present: normal appearance, PERRL, EOMI. Absent: scleral icterus, conjunctival injection, periorbital swelling ENT exam: Present: normal exam, normal oropharynx, mucous membranes moist Neck exam: Present: normal inspection, full ROM. Absent: tenderness, meningismus, lymphadenopathy Respiratory exam: Present: normal lung sounds bilaterally. Absent: respiratory distress, wheezes, rales, rhonchi, stridor Cardiovascular Exam: Present: regular rate, normal rhythm, normal heart sounds. Absent: systolic murmur, diastolic murmur, rubs, gallop, clicks GI/Abdominal exam: Present: soft, normal bowel sounds. Absent: distended, tenderness, guarding, rebound, rigid Course Vital Signs 09/14/18 09/14/18 09/14/18 14:02 15:30 16:24 Temperature 99.3 F Pulse Rate 96 97 89 Respiratory 18 31 H 18 Rate Blood Pressure 131/79 131/79 131/88 O2 Sat by Pulse 95 95 96 Oximetry 09/14/18 16:30 Temperature Pulse Rate 90 Respiratory 19 Rate Blood Pressure 131/88 O2 Sat by Pulse 95 Oximetry - Reevaluation(s) Reevaluation #1: 09/14/18 16:38 I did discuss the case upon her presentation with radiologist that read chest x- ray. Dr. leung did state that she had prior CT which showed evidence of extravastion of the dye. He was concern for dissecting today. Patient was referred to the emergency department for evaluation. Reevaluation #2: 09/14/18 16:[address] Mcdermott at [facility]. He did feel that this case will be better served at a tertiary hospital. I contacted [facility] for transfer 09/14/18 16:41 Reevaluation #3: 09/14/18 17:45 [facility] unable to accept transfer, [facility] is called Reevaluation #4: 09/14/18 18:38 [facility] [address] Vela EKG Findings - EKG Comments: EKG Findings:: EKG performed at 14:37 sinus rhythm with rate of 97 NC 170 QS 78 QT/QTC 416/552 Medical Decision Making - Medical Decision Making 83-year-old female presented for abnormal x-ray of her chest. CT was obtained which shows hemopericardium, leaking of pseudoaneurysm of descending aortic. Patient is stable blood pressure has been stable. Patient will be transferred to [facility] accepts. Patient is stable for transfer - Lab Data Result diagrams: 09/14/18 14:30 09/14/18 14:30 Lab Results 09/14/18 09/14/18 09/14/18 Range/Units 14:30 14:30 14:30 WBC 5.9 (3.8-10.6) k/uL RBC 3.62 L (3.80-5.40) m/uL Hgb 10.3 L (11.4-16.0) gm/dL Hct 32.4 L (34.0-46.0) % MCV 89.5 (80.0-100.0) fL MCH 28.6 (25.0-35.0) pg MCHC 32.0 (31.0-37.0) g/dL RDW 14.1 (11.5-15.5) % Plt Count 419 (150-450) k/uL Neutrophils % 66 % Lymphocytes % 18 % Monocytes % 10 % Eosinophils % 3 % Basophils % 0 % Neutrophils # 3.9 (1.3-7.7) k/uL Lymphocytes # 1.1 (1.0-4.8) k/uL Monocytes # 0.6 (0-1.0) k/uL Eosinophils # 0.2 (0-0.7) k/uL Basophils # 0.0 (0-0.2) k/uL Hypochromasia Slight PT (9.0-12.0) sec INR (<1.2) APTT (22.0-30.0) sec Sodium 140 (137-145) mmol/L Potassium 4.6 (3.5-5.1) mmol/L Chloride 106 (98-107) mmol/L Carbon Dioxide 29 (22-30) mmol/L Anion Gap 5 mmol/L BUN 15 (7-17) mg/dL Creatinine 0.66 (0.52-1.04) mg/dL Est GFR (CKD-EPI)AfAm >90 (>60 ml/min/1.73 sqM) Est GFR (CKD-EPI)NonAf 83 (>60 ml/min/1.73 sqM) Glucose 109 H (74-99) mg/dL Calcium 9.1 (8.4-10.2) mg/dL Magnesium 2.2 (1.6-2.3) mg/dL Total Bilirubin 0.4 (0.2-1.3) mg/dL AST 33 (14-36) U/L ALT 28 (9-52) U/L Alkaline Phosphatase 96 (38-126) U/L Total Creatine Kinase <20 L (30-135) U/L CK-MB (CK-2) <0.2 (0.0-2.4) ng/mL CK-MB (CK-2) Rel Index Troponin I <0.012 (0.000-0.034) ng/mL Total Protein 6.6 (6.3-8.2) g/dL Albumin 3.0 L (3.5-5.0) g/dL 09/14/18 Range/Units 14:30 WBC (3.8-10.6) k/uL RBC (3.80-5.40) m/uL Hgb (11.4-16.0) gm/dL Hct (34.0-46.0) % MCV (80.0-100.0) fL MCH (25.0-35.0) pg MCHC (31.0-37.0) g/dL RDW (11.5-15.5) % Plt Count (150-450) k/uL Neutrophils % % Lymphocytes % % Monocytes % % Eosinophils % % Basophils % % Neutrophils # (1.3-7.7) k/uL Lymphocytes # (1.0-4.8) k/uL Monocytes # (0-1.0) k/uL Eosinophils # (0-0.7) k/uL Basophils # (0-0.2) k/uL Hypochromasia PT 11.9 (9.0-12.0) sec INR 1.1 (<1.2) APTT 23.8 (22.0-30.0) sec Sodium (137-145) mmol/L Potassium (3.5-5.1) mmol/L Chloride (98-107) mmol/L Carbon Dioxide (22-30) mmol/L Anion Gap mmol/L BUN (7-17) mg/dL Creatinine (0.52-1.04) mg/dL Est GFR (CKD-EPI)AfAm (>60 ml/min/1.73 sqM) Est GFR (CKD-EPI)NonAf (>60 ml/min/1.73 sqM) Glucose (74-99) mg/dL Calcium (8.4-10.2) mg/dL Magnesium (1.6-2.3) mg/dL Total Bilirubin (0.2-1.3) mg/dL AST (14-36) U/L ALT (9-52) U/L Alkaline Phosphatase (38-126) U/L Total Creatine Kinase (30-135) U/L CK-MB (CK-2) (0.0-2.4) ng/mL CK-MB (CK-2) Rel Index Troponin I (0.000-0.034) ng/mL Total Protein (6.3-8.2) g/dL Albumin (3.5-5.0) g/dL Disposition Clinical Impression: Hemopericardium, Thoracic aortic aneurysm, Pseudoaneurysm of aorta Disposition: OTHER INSTITUTION NOT DEFINED Condition: Stable Referrals: Carolyn Bright MD [Primary Care Provider] - 1-2 days - Out of Hospital Transfer - Req. Specs Out of Hospital Transfer - Requested Specifics: Other Emergency Center ([facility])
[2018-09-14 19:14] VITALS: BP 135/79; PULSE 96; RESP 18
== END 2018-09-14 20:00 | disposition short-term general hospital (02) ==
LOC: EC 13:47
DX: I31.2 Hemopericardium, not elsewhere classified (principal); I71.2 Thoracic aortic aneurysm, without rupture; E78.5 Hyperlipidemia, unspecified; I10 Essential (primary) hypertension; G47.33 Obstructive sleep apnea (adult) (pediatric); E03.9 Hypothyroidism, unspecified; M81.0 Age-related osteoporosis without current pathological fracture; M19.90 Unspecified osteoarthritis, unspecified site; H91.93 Unspecified hearing loss, bilateral; F32.9 Major depressive disorder, single episode, unspecified; F41.9 Anxiety disorder, unspecified; Z88.5 Allergy status to narcotic agent; Z88.6 Allergy status to analgesic agent; Z91.048 Other nonmedicinal substance allergy status; Z79.899 Other long term (current) drug therapy; Z85.3 Personal history of malignant neoplasm of breast; Z85.828 Personal history of other malignant neoplasm of skin; Z92.3 Personal history of irradiation; Z98.890 Other specified postprocedural states; Z99.89 Dependence on other enabling machines and devices; Z96.20 Presence of otological and audiological implant, unspecified
CPT/HCPCS: 99285; 96360; 96361 ×4; 36415; 93005; 80053; 82550; 82553; 83735; 84484; 85025; 85610; 85730; 71275; 74174; Q9967

== ENCOUNTER 2019-01-26 09:21 | Emergency (ER) | payer MEDICARE ==
[2019-01-26 09:29] VITALS: RESP 18
--- NOTE | 2019-01-26 10:11 | ED ---
Fall HPI - General Chief Complaint: Fall Stated Complaint: Fall Time Seen by Provider: 01/26/19 09:29 Source: patient Mode of arrival: ambulatory - History of Present Illness Initial Comments: Patient is an 83-year-old female presenting to the emergency department after a fall from her bed. She has a history of rolling off her bed and had guardrails installed on her previous bed . She recently moved to [facility] and does not have guardrails installed on the bed. She reports waking up her left side on the floor. Patient states she pulled the cord and a staff member came to assist her. She noticed a newly developed bump on the back of her head and blood. She denies loss of consciousness. Patient states that she typically needs assistance with getting in and out of bed. She denies muscle weakness, numbness or tingling in bilateral upper and lower extremities. She denies blurry vision, dizziness or nausea. - Related Data Home Medications Medication Instructions Recorded Confirmed Alendronate Sodium [Fosamax] 70 mg PO CRUZ 03/07/14 09/14/18 Citalopram Hydrobromide [CeleXA] 40 mg PO HS 03/07/14 09/14/18 Levothyroxine Sodium [Synthroid] 25 mcg PO HS 03/07/14 09/14/18 Simvastatin [Zocor] 20 mg PO HS 11/08/15 09/14/18 Temazepam [Restoril] 30 mg PO HS 07/05/16 09/14/18 Anastrozole [Arimidex] 1 mg PO DAILY 10/16/16 09/14/18 Calcium Carb-Vit D 500Mg-200Un 1 tab PO DAILY 10/16/16 09/14/18 [Oscal 500+D] Multivitamins, Thera [Multivitamin 1 tab PO DAILY 10/16/16 09/14/18 (formulary)] Benazepril HCl 40 mg PO DAILY 04/10/17 09/14/18 Cetirizine HCl 10 mg PO DAILY 09/14/18 09/14/18 Cholecalciferol [Vitamin D3] 5,000 unit PO DAILY 09/14/18 09/14/18 Folic Acid 1 mg PO DAILY 09/14/18 09/14/18 Vitamin B Complex 1 cap PO DAILY 09/14/18 09/14/18 Previous Rx's Medication Instructions Recorded Omeprazole [PriLOSEC] 40 mg PO AC-BRKFST #14 capsule. 08/16/18 Allergies Allergy/AdvReac Type Severity Reaction Status Date / Time aspirin AdvReac Epistaxis Verified 09/14/18 14:39 codeine AdvReac Nausea Verified 09/14/18 14:39 morphine AdvReac Nausea Verified 09/14/18 14:39 sulfur dioxide AdvReac Nausea Verified 09/14/18 14:39 Review of Systems ROS Statement: Those systems with pertinent positive or pertinent negative responses have been documented in the HPI. ROS Other: All systems not noted in ROS Statement are negative. 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 History of Any Multi-Drug Resistant Organisms: None Reported Past Surgical History: Breast Surgery, Orthopedic Surgery, Tonsillectomy Additional Past Surgical History / Comment(s): Skin cancer removed from L side of nose, L knee surgery on meniscus, R breast lumpectomy, colonoscopy, bilateral cataract removals/lens implants. 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 Father Family Medical History: No Reported History Additional Family Medical History / Comment(s): from a fall Brother(s) Family Medical History: Cancer Additional Family Medical History / Comment(s): Stage IV prostate CA that has gone to the bone General Exam Limitations: no limitations General appearance: alert, in no apparent distress Expanded Head exam: Present: contusion (Right lateral supraorbital region), hematoma (Left parietal region). Absent: laceration, raccoon eyes, calabrese's sign Eye exam: Present: normal appearance Pupils: Present: normal accommodation ENT exam: Present: normal exam, normal external ear exam Neck exam: Present: tenderness (C4 region), full ROM Respiratory exam: Present: normal lung sounds bilaterally. Absent: wheezes, rales Cardiovascular Exam: Present: regular rate, normal rhythm Extremities exam: Present: full ROM, normal capillary refill Left Upper Arm exam: Present: tenderness (Left tricep tenderness on palpation). Absent: abrasion, laceration (1) Neurological exam: Present: alert, altered, oriented X3 Psychiatric exam: Present: normal affect, normal mood Skin exam: Present: warm. Absent: diaphoretic Course Vital Signs 01/26/19 09:22 Temperature 97.0 F L Pulse Rate 60 Respiratory 18 Rate Blood Pressure 140/82 O2 Sat by Pulse 98 Oximetry Medical Decision Making - Medical Decision Making 83-year-old female presenting to the emergency department after a fall. CT of head and neck is suggestive of posttraumatic subarachnoid hemorrhage. Case discussed with Mickey Chris for transfer . Dr. Gonzalez is the accepting physician. Disposition Clinical Impression: Fall, Subarachnoid hemorrhage Disposition: OTHER INSTITUTION NOT DEFINED Condition: Stable Is patient prescribed a controlled substance at d/c from ED?: No Referrals: Carolyn Bright MD [Primary Care Provider] - 1-2 days Time of Disposition: 11:22 - Out of Hospital Transfer - Req. Specs Out of Hospital Transfer - Requested Specifics: Other Emergency Center ([facility])
--- NOTE | 2019-01-26 10:58 | CT ---
EXAMINATION TYPE: CT brain [facility] DATE OF EXAM: 01/26/2019 COMPARISON: 04/10/2017 HISTORY: Fall out of bed today. Right frontal and left posterior head injury. CT DLP: 1301.[address] of the brain was performed. The ventricles, basal cisterns and sulci overlying the cerebral convexities demonstrate mild enlargem ent. There is hyperdensity noted within the posterior right parietal region felt to reflect mild posttraum atic subarachnoid hemorrhage or posttraumatic petechial hemorrhage. There is no evidence for midline shift. No evidence for subdural or epidural hematoma at this time. There is decreased attenuation about the periventricular white matter and deep white matter of both cerebral hemispheres, compatible with chronic small vessel ischemia. No mass effects are seen. If symptoms persist consider MRI. Osseous calvarium is intact. Left-sided posterior parietal scalp hematoma. Chronic paranasal sinusiti s. IMPRESSION: 1. There is hyperdensity noted within the posterior right parietal region felt to reflect mild postt raumatic subarachnoid hemorrhage or posttraumatic petechial hemorrhage. There is also mild underlying decreased attenuation which may reflect some mild edema. CT Cervical Spine: Unenhanced CT of the cervical spine was performed with bone and soft tissue window settings submitted . Coronal and sagittal reconstruction is obtained. There is normal alignment and prevertebral soft tissues. No evidence for acute cervical fracture . Scattered degenerative disc disease and spondylosis. Biapical scarring. IMPRESSION: 1. No evidence for acute fracture or subluxation of the cervical spine.
[2019-01-26 11:25] VITALS: BP 132/75; PULSE 70; TEMP 97.5
== END 2019-01-26 11:51 | disposition short-term general hospital (02) ==
LOC: EEVIPCON 09:21 → EC 09:21
DX: S06.6X0A Traumatic subarachnoid hemorrhage without loss of consciousness, initial encounter (principal); E78.5 Hyperlipidemia, unspecified; I10 Essential (primary) hypertension; E03.9 Hypothyroidism, unspecified; G47.33 Obstructive sleep apnea (adult) (pediatric); H91.93 Unspecified hearing loss, bilateral; G89.29 Other chronic pain; M81.0 Age-related osteoporosis without current pathological fracture; F32.9 Major depressive disorder, single episode, unspecified; F41.9 Anxiety disorder, unspecified; Z79.890 Hormone replacement therapy; Z79.899 Other long term (current) drug therapy; Z88.5 Allergy status to narcotic agent; Z88.6 Allergy status to analgesic agent; Z91.02 Food additives allergy status; Z85.3 Personal history of malignant neoplasm of breast; Z85.828 Personal history of other malignant neoplasm of skin; Z92.3 Personal history of irradiation; Z98.890 Other specified postprocedural states; Z97.4 Presence of external hearing-aid; Z99.89 Dependence on other enabling machines and devices; W06.XXXA Fall from bed, initial encounter; Y92.129 Unspecified place in nursing home as the place of occurrence of the external cause
CPT/HCPCS: 70450; 72125; 99284

== ENCOUNTER → 2019-02-13 | Outpatient (CLI) | payer MEDICARE ==
--- NOTE | 2019-02-13 18:16 | PN ---
PROGRESS NOTE This patient has obstructive sleep apnea with an AHI of 20 and she is on a CPAP pressure of 10. She quit her treatment for more than a year, and today she is coming in for a re-evaluation. She is interested in going back on her CPAP. She was recently in the hospital after she had a fall out of her bed and she had sustained a traumatic head injury which resulted in a bleeding complication. She was monitored at [facility] for a total of 3 days and no surgical intervention was done. The patient was discharged home. She has no headache. No mental status change. Her sleep quality is poor and she is willing to go back on her CPAP unit to improve her treatment. Note that she also had endovascular intervention regarding an abdominal aortic aneurysm. This was done at [facility]. Her weight has been stable. Her machine is functional for now. She has different masks that she has brought with her. She is looking for a decent mask that will give her the appropriate mask seal. REVIEW OF SYSTEMS: Fourteen-point review of systems was done. Essentially negative other than the things mentioned above in the history of present illness. There is no data that has accumulated in her CPAP machine over the past 6 months at least. No headaches. No altered mentation. No nausea. No vomiting. No chest pain. No shortness of breath. No angina. She is tired and sleepy and her sleep quality is poor. PHYSICAL EXAMINATION: BP is 123/78, pulse 80, respirations 16, temperature 97.5 saturation 93% on room air. Height is 5 feet 5 inches, weight is 177, BMI 29.4, Mcfaddin score is 8. GENERAL APPEARANCE: Calm, comfortable. Head is atraumatic, normocephalic. NECK: Supple. There is no JVD. No goiter or neck mass. LUNGS: Diminished breath sounds bilaterally; otherwise clear. HEART: Heart sounds are regular rate and rhythm. Normal S1, S2. No S3, S4. No murmurs. ABDOMEN: Soft, nontender. EXTREMITIES: No edema. No cyanosis or clubbing. NEUROLOGIC: Alert and oriented x3. There is no focal neurological deficit. IMPRESSION: 1. Obstructive sleep apnea, with an apnea/hypopnea index of 18, currently on CPAP pressure of 10. The patient is very interested in resuming his CPAP treatment. 2. Hypersomnia and sleepiness secondary to obstructive sleep apnea. 3. Recent fall and head trauma with a brain bleed. 4. Abdominal aortic aneurysm, status post endovascular stent grafting. 5. Hypertension. 6. Hyperlipidemia. 7. Depression. 8. Hypothyroidism. PLAN: 1. Restart CPAP therapy at the same level of pressure. 2. I offered this patient an AirFit F20 medium-sized full-face mask. 3. Renewed all of the supplies, tubings and a mask. 4. See me back in followup in a year's time, or earlier if needed. MMODL / IJN: [id number] /
== END | disposition home or self-care (01) ==
LOC: SLEEP 15:24
PROVIDERS: ATTEND Internal Medicine Critical Care Medicine
DX: G47.33 Obstructive sleep apnea (adult) (pediatric) (principal); S06.300A Unspecified focal traumatic brain injury without loss of consciousness, initial encounter; I71.4 Abdominal aortic aneurysm, without rupture; I10 Essential (primary) hypertension; E78.5 Hyperlipidemia, unspecified; F32.9 Major depressive disorder, single episode, unspecified; E03.9 Hypothyroidism, unspecified; Z95.828 Presence of other vascular implants and grafts; Z99.89 Dependence on other enabling machines and devices

== ENCOUNTER → 2019-06-16 | Outpatient (CLI) | payer MEDICARE ==
[2019-06-16 09:25] LABS: Basophils # (A) 0.1 k/uL (0-0.2); Basophils % (A) 1 %; Eosinophils # (A) 0.2 k/uL (0-0.7); Eosinophils % (A) 4 %; HCT 41.8 % (34.0-46.0); HGB 13.5 gm/dL (11.4-16.0); Lymphocytes # (A) 1.1 k/uL (1.0-4.8); Lymphocytes % (A) 18 %; MCH 28.8 pg (25.0-35.0); MCHC 32.4 g/dL (31.0-37.0); MCV 88.8 fL (80.0-100.0); Mean Platelet Volume 6.7; Monocytes # (A) 0.5 k/uL (0-1.0); Monocytes % (A) 8 %; Neutrophils # (A) 4.2 k/uL (1.3-7.7); Neutrophils % (A) 67 %; Platelet Count 192 k/uL (150-450); RDW 13.6 % (11.5-15.5); WBC 6.3 k/uL (3.8-10.6)
[2019-06-16 17:22] LABS: African American GFR (CKD) 80.1 (60.0-200.0); Albumin 4.1 g/dL (3.80-4.90); Albumin/Globulin Ratio 1.95 (1.60-3.17); Anion Gap 8.3 mmol/L (4.00-12.00); BUN/Creat Ratio 21.25 Ratio (12.00-20.00); Calcium 9.1 mg/dL (8.7-10.3); Carbon Dioxide 28.7 mmol/L (21.6-31.8); Globulin 2.1 g/dL (1.6-3.3); Non-African American GFR(CKD) 69.1 (60.0-200.0); Potassium 4.3 mmol/L (3.5-5.5); Total Bilirubin 0.6 mg/dL (0.2-1.2); Total Protein 6.2 g/dL (6.2-8.2)
== END | disposition home or self-care (01) ==
LOC: LABWHC1 08:42
PROVIDERS: ATTEND Internal Medicine
DX: E78.5 Hyperlipidemia, unspecified (principal); I10 Essential (primary) hypertension
CPT/HCPCS: 36415; 80053; 80061; 84439; 84443; 85025

== ENCOUNTER 2019-08-10 13:01 | Emergency (ER) | payer MEDICARE ==
[2019-08-10 13:10] VITALS: TEMP 98.3
[2019-08-10] MEDS ORDERED: SODIUM CHLORIDE 0.9% 1,000 ML IV STA ×2 (13:32→14:35)
[2019-08-10 13:57] LABS: Basophils # (A) 0.1 k/uL (0-0.2); Basophils % (A) 2 %; Eosinophils % (A) 1 %; HCT 38.7 % (34.0-46.0); HGB 12.6 gm/dL (11.4-16.0); Lymphocytes # (A) 0.6 k/uL (1.0-4.8); Lymphocytes % (A) 8 %; MCH 29.3 pg (25.0-35.0); MCHC 32.7 g/dL (31.0-37.0); MCV 89.7 fL (80.0-100.0); Monocytes # (A) 0.6 k/uL (0-1.0); Monocytes % (A) 7 %; Neutrophils # (A) 6.5 k/uL (1.3-7.7); Neutrophils % (A) 81 %; Platelet Count 213 k/uL (150-450); RBC 4.31 m/uL (3.80-5.40); RDW 13.2 % (11.5-15.5)
[2019-08-10 14:08] LABS: Albumin 3.6 g/dL (3.5-5.0); Calcium 9.3 mg/dL (8.4-10.2); Potassium 4.3 mmol/L (3.5-5.1); Total Bilirubin 0.6 mg/dL (0.2-1.3); Total Protein 6.9 g/dL (6.3-8.2)
[2019-08-10 14:10] LABS: Appearance,Urine Clear (Clear); Bilirubin,Urine Negative (Negative); Blood,Urine Trace (Negative); Color,Urine Yellow; Glucose,Urine (UA) Negative (Negative); Hyaline Casts,Urine 6 /lpf (0-2); Ketones,Urine Negative (Negative); Leukocyte Esterase,Urine Moderate (Negative); Mucus,Urine Few /hpf; Nitrite,Urine Negative (Negative); Protein,Urine 1+ (Negative); RBC,Urine 3 /hpf (0-5); Specific Gravity,Urine 1.021 (1.001-1.035); Squamous Epithelial Cell,Urine 1 /hpf (0-4)
--- NOTE | 2019-08-10 14:15 | ED ---
Female Urogenital HPI - General Source: patient, EMS Mode of arrival: EMS Limitations: no limitations <Larisa Teixeira - Last Filed: 08/10/19 14:46> <José Ashraf - Last Filed: 08/10/19 15:29> - General Chief complaint: Urogenital Stated complaint: POSS UTI Time Seen by Provider: 08/10/19 13:07 - History of Present Illness Initial comments: Patient is an 83-year-old female presenting to the emergency Department with complaints of a possible UTI that started today. Patient states she used the restroom early this morning and noticed that her urine is very dark in color and she's been having some very mild lower back stiffness. Patient does live in a detention. Patient denies fever, chills, nausea, vomiting, shortness of breath, chest pain. Patient states she also feels a little bit more fatigued th an usual. Patient has had a UTI in the past and this feels similar. Patient has no other complaints at this time. Upon arrival to the ER, vital signs are stable, afebrile. (Larisa Teixeira) - Related Data Home Medications Medication Instructions Recorded Confirmed Alendronate Sodium [Fosamax] 70 mg PO CRUZ 03/07/14 09/14/18 Citalopram Hydrobromide [CeleXA] 40 mg PO HS 03/07/14 09/14/18 Levothyroxine Sodium [Synthroid] 25 mcg PO HS 03/07/14 09/14/18 Simvastatin [Zocor] 20 mg PO HS 11/08/15 09/14/18 Temazepam [Restoril] 30 mg PO HS 07/05/16 09/14/18 Anastrozole [Arimidex] 1 mg PO DAILY 10/16/16 09/14/18 Calcium Carb-Vit D 500Mg-200Un 1 tab PO DAILY 10/16/16 09/14/18 [Oscal 500+D] Multivitamins, Thera [Multivitamin 1 tab PO DAILY 10/16/16 09/14/18 (formulary)] Benazepril HCl 40 mg PO DAILY 04/10/17 09/14/18 Cetirizine HCl 10 mg PO DAILY 09/14/18 09/14/18 Cholecalciferol [Vitamin D3] 5,000 unit PO DAILY 09/14/18 09/14/18 Folic Acid 1 mg PO DAILY 09/14/18 09/14/18 Vitamin B Complex 1 cap PO DAILY 09/14/18 09/14/18 Previous Rx's Medication Instructions Recorded Omeprazole [PriLOSEC] 40 mg PO AC-BRKFST #14 capsule. 08/16/18 Cephalexin [Keflex] 500 mg PO BID 7 Days #14 cap 08/10/19 Allergies Allergy/AdvReac Type Severity Reaction Status Date / Time aspirin AdvReac Epistaxis Verified 09/14/18 14:39 codeine AdvReac Nausea Verified 09/14/18 14:39 morphine AdvReac Nausea Verified 09/14/18 14:39 sulfur dioxide AdvReac Nausea Verified 09/14/18 14:39 Review of Systems ROS Other: All systems not noted in ROS Statement are negative. <Larisa Teixeira - Last Filed: 08/10/19 14:46> ROS Other: All systems not noted in ROS Statement are negative. <José Ashraf - Last Filed: 08/10/19 15:29> ROS Statement: Those systems with pertinent positive or pertinent negative responses have been documented in the HPI. 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 History of Any Multi-Drug Resistant Organisms: None Reported Past Surgical History: Breast Surgery, Orthopedic Surgery, Tonsillectomy Additional Past Surgical History / Comment(s): Skin cancer removed from L side of nose, L knee surgery on meniscus, R breast lumpectomy, colonoscopy, bilateral cataract removals/lens implants. 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 Father Family Medical History: No Reported History Additional Family Medical History / Comment(s): from a fall Brother(s) Family Medical History: Cancer Additional Family Medical History / Comment(s): Stage IV prostate CA that has gone to the bone <Larisa Teixeira - Last Filed: 08/10/19 14:46> General Exam Limitations: no limitations <Larisa Teixeira - Last Filed: 08/10/19 14:46> - General Exam Comments Initial Comments: GENERAL: Well-appearing, well-nourished and in no acute distress. HEAD: Atraumatic, normocephalic. EYES: Pupils equal round and reactive to light, extraocular movements intact, sclera anicteric, conjunctiva are normal. ENT: TMs normal, nares patent, oropharynx clear without exudates. Moist mucous membranes. NECK: Normal range of motion, supple without lymphadenopathy or JVD. LUNGS: Breath sounds clear to auscultation bilaterally and equal. No wheezes rales or rhonchi. HEART: Regular rate and rhythm without murmurs, rubs or gallops. ABDOMEN: Mild suprapubic tenderness, no other abdominal discomfort. Soft, normoactive bowel sounds. No guarding, no rebound. No masses appreciated. : Deferred EXTREMITIES: Normal range of motion, no pitting or edema. No clubbing or cyanosis. NEUROLOGICAL: Cranial nerves II through XII grossly intact. Normal speech, normal gait. PSYCH: Normal mood, normal affect. SKIN: Warm, Dry, normal turgor, no rashes or lesions noted. (Larisa Teixeira) Course <José Ashraf - Last Filed: 08/10/19 15:29> Vital Signs 08/10/19 13:06 Temperature 98.3 F Pulse Rate 78 Respiratory 17 Rate Blood Pressure 139/59 O2 Sat by Pulse 95 Oximetry - Reevaluation(s) Reevaluation #1: 08/10/19 15:28 PA supervision: I proceeded [id number] evaluation the patient she did present with symptoms consistent with UTI. I did discuss [employer] her and her family members. I do agree with the assessment and plan. Patient will be discharged on appropriate medication. The patient family are in agreement. (José Ashraf) Medical Decision Making - Lab Data Result diagrams: 08/10/19 13:35 08/10/19 13:35 <Larisa Teixeira - Last Filed: 08/10/19 14:46> - Lab Data Result diagrams: 08/10/19 13:35 08/10/19 13:35 <José Ashraf - Last Filed: 08/10/19 15:29> - Medical Decision Making Patient is an 83-year-old female presenting with UTI-type symptoms for one day. Patient complaining of dark urine as well as mild low back stiffness. Vital signs are stable, afebrile. Patient has some suprapubic tenderness upon palpation. CBC, CMP are within normal limits. Urine does show 1+ protein, trace amount of blood, 10 wbc's. (Larisa Teixeira) - Lab Data Lab Results 08/10/19 08/10/19 08/10/19 Range/Units 13:35 13:35 13:50 WBC 8.0 (3.8-10.6) k/uL RBC 4.31 (3.80-5.40) m/uL Hgb 12.6 (11.4-16.0) gm/dL Hct 38.7 (34.0-46.0) % MCV 89.7 (80.0-100.0) fL MCH 29.3 (25.0-35.0) pg MCHC 32.7 (31.0-37.0) g/dL RDW 13.2 (11.5-15.5) % Plt Count 213 (150-450) k/uL Neutrophils % 81 % Lymphocytes % 8 % Monocytes % 7 % Eosinophils % 1 % Basophils % 2 % Neutrophils # 6.5 (1.3-7.7) k/uL Lymphocytes # 0.6 L (1.0-4.8) k/uL Monocytes # 0.6 (0-1.0) k/uL Eosinophils # 0.0 (0-0.7) k/uL Basophils # 0.1 (0-0.2) k/uL Sodium 137 (137-145) mmol/L Potassium 4.3 (3.5-5.1) mmol/L Chloride 102 (98-107) mmol/L Carbon Dioxide 27 (22-30) mmol/L Anion Gap 8 mmol/L BUN 18 H (7-17) mg/dL Creatinine 0.73 (0.52-1.04) mg/dL Est GFR (CKD-EPI)AfAm 90 (>60 ml/min/1.73 sqM) Est GFR (CKD-EPI)NonAf 78 (>60 ml/min/1.73 sqM) Glucose 146 H (74-99) mg/dL Calcium 9.3 (8.4-10.2) mg/dL Total Bilirubin 0.6 (0.2-1.3) mg/dL AST 24 (14-36) U/L ALT 21 (9-52) U/L Alkaline Phosphatase 73 (38-126) U/L Total Protein 6.9 (6.3-8.2) g/dL Albumin 3.6 (3.5-5.0) g/dL Urine Color Yellow Urine Appearance Clear (Clear) Urine pH 6.0 (5.0-8.0) Ur Specific [place] 1.021 (1.001-1.035) Urine Protein 1+ H (Negative) Urine Glucose (UA) Negative (Negative) Urine Ketones Negative (Negative) Urine Blood Trace H (Negative) Urine Nitrite Negative (Negative) Urine Bilirubin Negative (Negative) Urine Urobilinogen 2.0 (<2.0) mg/dL Ur Leukocyte Esterase Moderate H (Negative) Urine RBC 3 (0-5) /hpf Urine WBC 10 H (0-5) /hpf Ur Squamous Epith Cells 1 (0-4) /hpf Hyaline Casts 6 H (0-2) /lpf Urine Mucus Few H (None) /hpf Disposition Is patient prescribed a controlled substance at d/c from ED?: No <Larisa Teixeira - Last Filed: 08/10/19 14:46> <José Ashraf - Last Filed: 08/10/19 15:29> Clinical Impression: Urinary tract infection, Dehydration Disposition: HOME SELF-CARE Condition: Stable Instructions (If sedation given, give patient instructions): Urinary Tract Infection in Women (ED) Additional Instructions: Please return to the Emergency Department if symptoms worsen or any other concerns. Take antibiotics as prescribed. Increase fluid intake for the next week. Prescriptions: Cephalexin [Keflex] 500 mg PO BID 7 Days #14 cap Referrals: Carolyn Bright MD [Primary Care Provider] - 1-2 days
[2019-08-10] MEDS ORDERED: NALOXONE 0.4 MG/ML 1 ML VIAL IV PRN (14:32)
[2019-08-10] MEDS ORDERED: CEPHALEXIN 500 MG CAP PO STA (14:45)
[2019-08-10] MEDS ORDERED: SODIUM CHLORIDE 0.9% 1,000 ML IV SCH (14:45)
[2019-08-10 15:50] VITALS: BP 108/62; PULSE 71; RESP 16
[2019-08-10] MEDS ORDERED: IPRATROPIUM-ALBUTEROL 3 ML NEB INHALATION SCH (16:00)
[2019-08-10] MEDS ORDERED: CEFEPIME 2 GM in SODIUM CHLORIDE 0.9% 100 ML IVPB SCH (21:00)
[2019-08-11] MEDS ORDERED: PANTOPRAZOLE 40 MG/10 ML VIAL IV SCH (09:00)
== END 2019-08-10 15:45 | disposition home or self-care (01) ==
LOC: EC 13:01
DX: N39.0 Urinary tract infection, site not specified (principal); E86.0 Dehydration; F41.9 Anxiety disorder, unspecified; F32.9 Major depressive disorder, single episode, unspecified; E03.9 Hypothyroidism, unspecified; E78.5 Hyperlipidemia, unspecified; G47.33 Obstructive sleep apnea (adult) (pediatric); G89.29 Other chronic pain; M54.5 Low back pain; I10 Essential (primary) hypertension; K21.9 Gastro-esophageal reflux disease without esophagitis; M19.90 Unspecified osteoarthritis, unspecified site; M81.0 Age-related osteoporosis without current pathological fracture; Z79.890 Hormone replacement therapy; Z79.899 Other long term (current) drug therapy; Z88.6 Allergy status to analgesic agent; Z88.5 Allergy status to narcotic agent; Z88.2 Allergy status to sulfonamides; Z85.3 Personal history of malignant neoplasm of breast; Z85.828 Personal history of other malignant neoplasm of skin; Z92.3 Personal history of irradiation; Z99.89 Dependence on other enabling machines and devices
CPT/HCPCS: 36415; 80053; 81001; 85025; 96360; 99283

== ENCOUNTER 2019-09-02 10:30 | Emergency (ER) | payer MEDICARE ==
[2019-09-02 10:43] VITALS: TEMP 97.8
--- NOTE | 2019-09-02 10:48 | ED ---
General Adult HPI - General Chief complaint: Weakness Stated complaint: Weakness Time Seen by Provider: 09/02/19 10:30 Source: patient, EMS, RN notes reviewed, old records reviewed Mode of arrival: EMS Limitations: no limitations - History of Present Illness Initial comments: This is an 84-year-old female who presents emergency Department complaining that she is just more fatigued than normal. Patient states she just started new medication recently and has been on it for a few days. Patient states she just feels very drowsy and weak. Patient states she went to [employer] today and just didn't feel that she had a set her head down on the pew because she was so tired. Patient denies any headache patient denies any numbness or focal weakness. Patient denies any lightheadedness or dizziness. Patient denies any chest pain palpitations difficulty breathing or shortness of breath per patient denies any abdominal pain patient denies nausea vomiting or diarrhea. - Related Data Home Medications Medication Instructions Recorded Confirmed Alendronate Sodium [Fosamax] 70 mg PO CRUZ 03/07/14 09/02/19 Levothyroxine Sodium [Synthroid] 25 mcg PO HS 03/07/14 09/02/19 Simvastatin [Zocor] 20 mg PO HS 11/08/15 09/02/19 Anastrozole [Arimidex] 1 mg PO DAILY@1200 10/16/16 09/02/19 Calcium Carb-Vit D 500Mg-200Un 1 tab PO DAILY 10/16/16 09/02/19 [Oscal 500+D] Multivitamins, Thera [Multivitamin 1 tab PO DAILY 10/16/16 09/02/19 (formulary)] Cetirizine HCl 10 mg PO DAILY 09/14/18 09/02/19 Cholecalciferol [Vitamin D3] 5,000 unit PO DAILY 09/14/18 09/02/19 Folic Acid 1 mg PO DAILY 09/14/18 09/02/19 Vitamin B Complex 1 cap PO DAILY 09/14/18 09/02/19 ALPRAZolam [ALPRAZolam XR] 0.5 mg PO DAILY PRN 09/02/19 09/02/19 Acetaminophen Tab [Tylenol Tab] 325 mg PO Q6H PRN 09/02/19 09/02/19 Artificial Tears-Hypromellose 1 drops BOTH EYES Q4H PRN 09/02/19 09/02/19 [Artificial Tear Drops] Docusate [Colace] 100 mg PO DAILY PRN 09/02/19 09/02/19 Famotidine [Pepcid] 40 mg PO DAILY 09/02/19 09/02/19 Ferrous Sulfate [Feosol] 325 mg PO DAILY 09/02/19 09/02/19 Losartan Potassium [Cozaar] 25 mg PO DAILY 09/02/19 09/02/19 Metoprolol Tartrate [Lopressor] 50 mg PO BID 09/02/19 09/02/19 Previous Rx's Medication Instructions Recorded Omeprazole [PriLOSEC] 40 mg PO AC-BRKFST #14 capsule. 08/16/18 Allergies Allergy/AdvReac Type Severity Reaction Status Date / Time aspirin AdvReac Epistaxis Verified 09/02/19 10:43 codeine AdvReac Nausea Verified 09/02/19 10:43 morphine AdvReac Nausea Verified 09/02/19 10:43 sulfur dioxide AdvReac Nausea Verified 09/02/19 10:43 Review of Systems ROS Statement: Those systems with pertinent positive or pertinent negative responses have been documented in the HPI. ROS Other: All systems not noted in ROS Statement are negative. 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 History of Any Multi-Drug Resistant Organisms: None Reported Past Surgical History: Breast Surgery, Orthopedic Surgery, Tonsillectomy Additional Past Surgical History / Comment(s): Skin cancer removed from L side of nose, L knee surgery on meniscus, R breast lumpectomy, colonoscopy, bilateral cataract removals/lens implants. 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 Father Family Medical History: No Reported History Additional Family Medical History / Comment(s): from a fall Brother(s) Family Medical History: Cancer Additional Family Medical History / Comment(s): Stage IV prostate CA that has gone to the bone General Exam - General Exam Comments Initial Comments: GENERAL: Patient is well-developed and well-nourished. Patient is nontoxic and well- hydrated and is in no acute distress. Patient appears to be very tired but is able to answer all questions normally. ENT: Neck is soft and supple. No significant lymphadenopathy is noted. Oropharynx is clear. Moist mucous membranes. Neck has full range of motion without eliciting any pain. EYES: The sclera were anicteric and conjunctiva were pink and moist. Extraocular movements were intact and pupils were equal round and reactive to light. Eyelids were unremarkable. PULMONARY: Unlabored respirations. Good breath sounds bilaterally. No audible rales rhonchi or wheezing was noted. CARDIOVASCULAR: There is a regular rate and rhythm without any murmurs gallops or rubs. ABDOMEN: Soft and nontender with normal bowel sounds. No palpable organomegaly was noted. There is no palpable pulsatile mass. SKIN: Skin is clear with no lesions or rashes and otherwise unremarkable. NEUROLOGIC: Patient is alert and oriented x3. Cranial nerves II through XII are grossly intact. Motor and sensory are also intact. Normal speech, volume and content. Symmetrical smile. MUSCULOSKELETAL: Normal extremities with adequate strength and full range of motion. LYMPHATICS: No significant lymphadenopathy is noted PSYCHIATRIC: Normal psychiatric evaluation. Limitations: no limitations Course Vital Signs 09/02/19 09/02/19 09/02/19 10:36 10:37 11:00 Temperature 97.8 F Pulse Rate 73 73 Respiratory 15 15 Rate Blood Pressure 100/57 100/57 O2 Sat by Pulse 94 L 91 L 92 L Oximetry 09/02/19 09/02/19 09/02/19 11:50 12:00 12:20 Temperature Pulse Rate 97 69 70 Respiratory 16 21 20 Rate Blood Pressure 119/75 138/78 106/74 O2 Sat by Pulse 99 96 97 Oximetry Medical Decision Making - Medical Decision Making EKG shows normal sinus rhythm at 73 bpm NC interval is 170 QRS 70 QT interval 420 QTC is 462. Patient's EKG shows no ST segment elevation or depression or T-wave abdomen is noted. Family arrived and stated that the patient did take 2 Xanax this morning which s he normally takes at night. Patient took it because her brother physical she's been quite anxious. Since patient has been here she's much more clear for speech is no longer slow and family states she is back to her baseline. Patient was up and walking around the ER without problem. Patient was given 1 L of fluid. - Lab Data Result diagrams: 09/02/19 10:52 09/02/19 10:52 Lab Results 09/02/19 09/02/19 09/02/19 Range/Units 10:52 10:52 10:52 WBC 6.7 (3.8-10.6) k/uL RBC 4.66 (3.80-5.40) m/uL Hgb 13.5 (11.4-16.0) gm/dL Hct 42.1 (34.0-46.0) % MCV 90.4 (80.0-100.0) fL MCH 28.9 (25.0-35.0) pg MCHC 32.0 (31.0-37.0) g/dL RDW 13.9 (11.5-15.5) % Plt Count 228 (150-450) k/uL Neutrophils % 75 % Lymphocytes % 13 % Monocytes % 7 % Eosinophils % 2 % Basophils % 1 % Neutrophils # 5.0 (1.3-7.7) k/uL Lymphocytes # 0.9 L (1.0-4.8) k/uL Monocytes # 0.4 (0-1.0) k/uL Eosinophils # 0.1 (0-0.7) k/uL Basophils # 0.1 (0-0.2) k/uL PT (9.0-12.0) sec INR (<1.2) APTT (22.0-30.0) sec Sodium 143 (137-145) mmol/L Potassium 4.7 (3.5-5.1) mmol/L Chloride 106 (98-107) mmol/L Carbon Dioxide 28 (22-30) mmol/L Anion Gap 9 mmol/L BUN 24 H (7-17) mg/dL Creatinine 1.02 (0.52-1.04) mg/dL Est GFR (CKD-EPI)AfAm 60 (>60 ml/min/1.73 sqM) Est GFR (CKD-EPI)NonAf 52 (>60 ml/min/1.73 sqM) Glucose 108 H (74-99) mg/dL Plasma Lactic Acid Saul 1.7 (0.7-2.0) mmol/L Calcium 10.1 (8.4-10.2) mg/dL Magnesium 2.3 (1.6-2.3) mg/dL Total Bilirubin 0.7 (0.2-1.3) mg/dL AST 23 (14-36) U/L ALT 38 (9-52) U/L Alkaline Phosphatase 76 (38-126) U/L Troponin I (0.000-0.034) ng/mL Total Protein 7.5 (6.3-8.2) g/dL Albumin 4.1 (3.5-5.0) g/dL Urine Color Urine Appearance (Clear) Urine pH (5.0-8.0) Ur Specific [place] (1.001-1.035) Urine Protein (Negative) Urine Glucose (UA) (Negative) Urine Ketones (Negative) Urine Blood (Negative) Urine Nitrite (Negative) Urine Bilirubin (Negative) Urine Urobilinogen (<2.0) mg/dL Ur Leukocyte Esterase (Negative) Urine WBC (0-5) /hpf Ur Squamous Epith Cells (0-4) /hpf Urine Bacteria (None) /hpf Hyaline Casts (0-2) /lpf Urine Mucus (None) /hpf 09/02/19 09/02/19 09/02/19 Range/Units 10:52 10:52 11:44 WBC (3.8-10.6) k/uL RBC (3.80-5.40) m/uL Hgb (11.4-16.0) gm/dL Hct (34.0-46.0) % MCV (80.0-100.0) fL MCH (25.0-35.0) pg MCHC (31.0-37.0) g/dL RDW (11.5-15.5) % Plt Count (150-450) k/uL Neutrophils % % Lymphocytes % % Monocytes % % Eosinophils % % Basophils % % Neutrophils # (1.3-7.7) k/uL Lymphocytes # (1.0-4.8) k/uL Monocytes # (0-1.0) k/uL Eosinophils # (0-0.7) k/uL Basophils # (0-0.2) k/uL PT 12.0 (9.0-12.0) sec INR 1.1 (<1.2) APTT 25.8 (22.0-30.0) sec Sodium (137-145) mmol/L Potassium (3.5-5.1) mmol/L Chloride (98-107) mmol/L Carbon Dioxide (22-30) mmol/L Anion Gap mmol/L BUN (7-17) mg/dL Creatinine (0.52-1.04) mg/dL Est GFR (CKD-EPI)AfAm (>60 ml/min/1.73 sqM) Est GFR (CKD-EPI)NonAf (>60 ml/min/1.73 sqM) Glucose (74-99) mg/dL Plasma Lactic Acid Saul (0.7-2.0) mmol/L Calcium (8.4-10.2) mg/dL Magnesium (1.6-2.3) mg/dL Total Bilirubin (0.2-1.3) mg/dL AST (14-36) U/L ALT (9-52) U/L Alkaline Phosphatase (38-126) U/L Troponin I <0.012 (0.000-0.034) ng/mL Total Protein (6.3-8.2) g/dL Albumin (3.5-5.0) g/dL Urine Color [place] Urine Appearance Cloudy H (Clear) Urine pH 5.5 (5.0-8.0) Ur Specific [place] 1.025 (1.001-1.035) Urine Protein 2+ H (Negative) Urine Glucose (UA) Negative (Negative) Urine Ketones Negative (Negative) Urine Blood Negative (Negative) Urine Nitrite Negative (Negative) Urine Bilirubin Negative (Negative) Urine Urobilinogen 2.0 (<2.0) mg/dL Ur Leukocyte Esterase Large H (Negative) Urine WBC 30 H (0-5) /hpf Ur Squamous Epith Cells 4 (0-4) /hpf Urine Bacteria Rare H (None) /hpf Hyaline Casts 80 H (0-2) /lpf Urine Mucus Many H (None) /hpf Disposition Clinical Impression: Dehydration, Fatigue Disposition: HOME SELF-CARE Condition: Good Instructions (If sedation given, give patient instructions): Dehydration (ED), Fatigue (ED) Is patient prescribed a controlled substance at d/c from ED?: No Referrals: Carolyn Bright MD [Primary Care Provider] - 1-2 days Time of Disposition: 12:55
[2019-09-02 11:07] LABS: Basophils # (A) 0.1 k/uL (0-0.2); Basophils % (A) 1 %; Eosinophils # (A) 0.1 k/uL (0-0.7); Eosinophils % (A) 2 %; HCT 42.1 % (34.0-46.0); HGB 13.5 gm/dL (11.4-16.0); Lymphocytes # (A) 0.9 k/uL (1.0-4.8); Lymphocytes % (A) 13 %; MCH 28.9 pg (25.0-35.0); MCV 90.4 fL (80.0-100.0); Mean Platelet Volume 6.6; Monocytes # (A) 0.4 k/uL (0-1.0); Monocytes % (A) 7 %; Neutrophils % (A) 75 %; Platelet Count 228 k/uL (150-450); RBC 4.66 m/uL (3.80-5.40); RDW 13.9 % (11.5-15.5); WBC 6.7 k/uL (3.8-10.6)
[2019-09-02] MEDS: SODIUM CHLORIDE 0.9% 500 ML 500 ML IV STA ×2 (11:20→12:21)
[2019-09-02 11:24] LABS: INR 1.1 (<1.2); Partial Thromboplastin Time 25.8 sec (22.0-30.0)
[2019-09-02 11:32] LABS: Albumin 4.1 g/dL (3.5-5.0); Calcium 10.1 mg/dL (8.4-10.2); Magnesium 2.3 mg/dL (1.6-2.3); Potassium 4.7 mmol/L (3.5-5.1); Total Bilirubin 0.7 mg/dL (0.2-1.3); Total Protein 7.5 g/dL (6.3-8.2)
--- NOTE | 2019-09-02 11:50 | XR ---
EXAMINATION TYPE: XR chest 2V DATE OF EXAM: 09/02/2019 COMPARISON: 10/12/2018 HISTORY: Shortness of breath TECHNIQUE: Frontal and lateral views of the chest are obtained. FINDINGS: Scattered senescent parenchymal changes noted. Hyperinflation compatible with COPD. Linear atelectasis right lung base. No evidence of focal pneumonia. Heart size is stable. Mediastinal structures are stable and grossly unremarkable. No evidence for hilar prominence. Degenerative changes dorsal spine. IMPRESSION: 1. Linear atelectasis right lung base. No evidence of focal pneumonia.
[2019-09-02 12:05] LABS: Appearance,Urine Cloudy (Clear); Bacteria,Urine Rare /hpf; Bilirubin,Urine Negative (Negative); Blood,Urine Negative (Negative); Color,Urine Orange; Glucose,Urine (UA) Negative (Negative); Hyaline Casts,Urine 80 /lpf (0-2); Ketones,Urine Negative (Negative); Leukocyte Esterase,Urine Large (Negative); Mucus,Urine Many /hpf; Nitrite,Urine Negative (Negative); PH, Urine 5.5 (5.0-8.0); Protein,Urine 2+ (Negative); Specific Gravity,Urine 1.025 (1.001-1.035); Squamous Epithelial Cell,Urine 4 /hpf (0-4); WBC,Urine 30 /hpf (0-5)
[2019-09-02 13:20] VITALS: BP 106/80; PULSE 71; RESP 24
== END 2019-09-02 13:20 | disposition home or self-care (01) ==
LOC: EC 10:30
DX: E86.0 Dehydration (principal); R53.83 Other fatigue; F41.9 Anxiety disorder, unspecified; F32.9 Major depressive disorder, single episode, unspecified; K21.9 Gastro-esophageal reflux disease without esophagitis; E78.5 Hyperlipidemia, unspecified; I10 Essential (primary) hypertension; G47.33 Obstructive sleep apnea (adult) (pediatric); E03.9 Hypothyroidism, unspecified; M81.0 Age-related osteoporosis without current pathological fracture; Z79.890 Hormone replacement therapy; Z79.899 Other long term (current) drug therapy; Z88.6 Allergy status to analgesic agent; Z88.5 Allergy status to narcotic agent; Z88.2 Allergy status to sulfonamides; Z85.3 Personal history of malignant neoplasm of breast; Z90.12 Acquired absence of left breast and nipple; Z85.828 Personal history of other malignant neoplasm of skin; Z92.3 Personal history of irradiation; Z99.89 Dependence on other enabling machines and devices; Z82.3 Family history of stroke
CPT/HCPCS: 36415; 71046; 80053; 81001; 83605; 83735; 84484; 85025; 85610; 85730; 87086; 93005; 96360; 99285

== ENCOUNTER → 2020-06-11 | Outpatient (CLI) | payer MEDICARE ==
[2020-06-11 08:24] LABS: Basophils # (A) 0.1 k/uL (0-0.2); Basophils % (A) 2 %; Eosinophils # (A) 0.2 k/uL (0-0.7); Eosinophils % (A) 4 %; HCT 46.1 % (34.0-46.0); HGB 14.3 gm/dL (11.4-16.0); Lymphocytes # (A) 1.2 k/uL (1.0-4.8); Lymphocytes % (A) 25 %; MCH 28.8 pg (25.0-35.0); Mean Platelet Volume 7.3; Monocytes # (A) 0.4 k/uL (0-1.0); Monocytes % (A) 8 %; Neutrophils # (A) 2.9 k/uL (1.3-7.7); Neutrophils % (A) 59 %; Platelet Count 180 k/uL (150-450); RBC 4.96 m/uL (3.80-5.40); RDW 13.1 % (11.5-15.5)
[2020-06-11 18:57] LABS: African American GFR (CKD) 79.6 (60.0-200.0); Albumin 4.1 g/dL (3.80-4.90); Albumin/Globulin Ratio 1.71 (1.60-3.17); Anion Gap 7.8 mmol/L (4.00-12.00); BUN/Creat Ratio 21.25 Ratio (12.00-20.00); Calcium 9.4 mg/dL (8.7-10.3); Carbon Dioxide 27.2 mmol/L (21.6-31.8); Chol/HDL Ratio 4.43; Globulin 2.4 g/dL (1.6-3.3); LDL Cholesterol,Calculated 93.4 mg/dL (0.0-131.0); Non-African American GFR(CKD) 68.7 (60.0-200.0); Potassium 4.1 mmol/L (3.5-5.5); Total Bilirubin 0.6 mg/dL (0.2-1.2); Total Protein 6.5 g/dL (6.2-8.2); VLDL Calculation 43.6 mg/dL (5.00-40.00)
== END | disposition home or self-care (01) ==
LOC: LABWHC1 07:46
PROVIDERS: ATTEND Internal Medicine
DX: I10 Essential (primary) hypertension (principal); C50.919 Malignant neoplasm of unspecified site of unspecified female breast; E03.9 Hypothyroidism, unspecified; M19.90 Unspecified osteoarthritis, unspecified site; E78.5 Hyperlipidemia, unspecified
CPT/HCPCS: 36415; 80053; 80061; 84439; 84443; 85025

== ENCOUNTER 2020-09-20 13:44 | Emergency (ER) | payer MEDICARE ==
[2020-09-20 14:05] VITALS: RESP 18; TEMP 99.2
[2020-09-20] MEDS ORDERED: SODIUM CHLORIDE 0.9% 1,000 ML IV STA ×2 (14:19)
[2020-09-20 14:33] LABS: Basophils # (A) 0.1 k/uL (0-0.2); Basophils % (A) 1 %; Eosinophils # (A) 0.1 k/uL (0-0.7); Eosinophils % (A) 1 %; HCT 45.1 % (34.0-46.0); Lymphocytes # (A) 0.9 k/uL (1.0-4.8); Lymphocytes % (A) 9 %; MCH 30.3 pg (25.0-35.0); MCHC 33.2 g/dL (31.0-37.0); MCV 91.1 fL (80.0-100.0); Mean Platelet Volume 7.6; Monocytes # (A) 0.9 k/uL (0-1.0); Monocytes % (A) 9 %; Neutrophils # (A) 7.3 k/uL (1.3-7.7); Neutrophils % (A) 78 %; Platelet Count 187 k/uL (150-450); RBC 4.94 m/uL (3.80-5.40); RDW 12.9 % (11.5-15.5); WBC 9.5 k/uL (3.8-10.6)
--- NOTE | 2020-09-20 14:37 | ED ---
Recheck HPI - General Chief Complaint: Recheck/Abnormal Lab/Rx Stated Complaint: Cough Time Seen by Provider: 09/20/20 14:00 Source: patient, family, RN notes reviewed Mode of arrival: wheelchair Limitations: no limitations - History of Present Illness Initial Comments: This is an 85-year-old female who presents with complaints of possibly being dehydrated. She states she was nauseated this morning and had a bowel movement and felt better however she feels as if she is dry she states she's been trying to eat and drink properly. 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 She denies at this time a fevers chills nausea vomiting sweats dysuria or other symptoms - Related Data Home Medications Medication Instructions Recorded Confirmed Alendronate Sodium [Fosamax] 70 mg PO CRUZ 03/07/14 09/02/19 Levothyroxine Sodium [Synthroid] 25 mcg PO HS 03/07/14 09/02/19 Simvastatin [Zocor] 20 mg PO HS 11/08/15 09/02/19 Anastrozole [Arimidex] 1 mg PO DAILY@1200 10/16/16 09/02/19 Calcium Carb-Vit D 500Mg-200Un 1 tab PO DAILY 10/16/16 09/02/19 [Oscal 500+D] Multivitamins, Thera [Multivitamin 1 tab PO DAILY 10/16/16 09/02/19 (formulary)] Cetirizine HCl 10 mg PO DAILY 09/14/18 09/02/19 Cholecalciferol [Vitamin D3] 5,000 unit PO DAILY 09/14/18 09/02/19 Folic Acid 1 mg PO DAILY 09/14/18 09/02/19 Vitamin B Complex 1 cap PO DAILY 09/14/18 09/02/19 ALPRAZolam [ALPRAZolam XR] 0.5 mg PO DAILY PRN 09/02/19 09/02/19 Acetaminophen Tab [Tylenol Tab] 325 mg PO Q6H PRN 09/02/19 09/02/19 Artificial Tears-Hypromellose 1 drops BOTH EYES Q4H PRN 09/02/19 09/02/19 [Artificial Tear Drops] Docusate [Colace] 100 mg PO DAILY PRN 09/02/19 09/02/19 Famotidine [Pepcid] 40 mg PO DAILY 09/02/19 09/02/19 Ferrous Sulfate [Feosol] 325 mg PO DAILY 09/02/19 09/02/19 Losartan Potassium [Cozaar] 25 mg PO DAILY 09/02/19 09/02/19 Metoprolol Tartrate [Lopressor] 50 mg PO BID 09/02/19 09/02/19 Previous Rx's Medication Instructions Recorded Omeprazole [PriLOSEC] 40 mg PO -BRKFST #14 capsule. 08/16/18 Allergies Allergy/AdvReac Type Severity Reaction Status Date / Time aspirin AdvReac Epistaxis Verified 09/20/20 14:05 codeine AdvReac Nausea Verified 09/20/20 14:05 morphine AdvReac Nausea Verified 09/20/20 14:05 sulfur dioxide AdvReac Nausea Verified 09/20/20 14:05 Review of Systems ROS Statement: Those systems with pertinent positive or pertinent negative responses have been documented in the HPI. ROS Other: All systems not noted in ROS Statement are negative. 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 History of Any Multi-Drug Resistant Organisms: None Reported Past Surgical History: Breast Surgery, Orthopedic Surgery, Tonsillectomy Additional Past Surgical History / Comment(s): Skin cancer removed from L side of nose, L knee surgery on meniscus, R breast lumpectomy, colonoscopy, bilateral cataract removals/lens implants. 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 Father Family Medical History: No Reported History Additional Family Medical History / Comment(s): from a fall Brother(s) Family Medical History: Cancer Additional Family Medical History / Comment(s): Stage IV prostate CA that has gone to the bone General Exam - General Exam Comments Initial Comments: This is a well-developed well-nourished awake alert oriented 3 female Limitations: no limitations General appearance: alert, in no apparent distress Head exam: Present: atraumatic, normocephalic, normal inspection Eye exam: Present: normal appearance, PERRL, EOMI. Absent: scleral icterus, conjunctival injection, periorbital swelling ENT exam: Present: mucous membranes dry Neck exam: Present: normal inspection. Absent: tenderness, meningismus, lymphadenopathy Respiratory exam: Present: normal lung sounds bilaterally. Absent: respiratory distress, wheezes, rales, rhonchi, stridor Cardiovascular Exam: Present: normal rhythm, tachycardia, normal heart sounds. Absent: systolic murmur, diastolic murmur, rubs, gallop, clicks GI/Abdominal exam: Present: soft, normal bowel sounds. Absent: distended, tenderness, guarding, rebound, rigid Extremities exam: Present: normal inspection, full ROM, normal capillary refill. Absent: tenderness, pedal edema, joint swelling, calf tenderness Back exam: Present: normal inspection Neurological exam: Present: alert, oriented X3, CN II-XII intact Psychiatric exam: Present: normal affect, normal mood Skin exam: Present: warm, dry, intact, normal color. Absent: rash Course Vital Signs 09/20/20 14:01 Temperature 99.2 F Pulse Rate 101 H Respiratory 18 Rate Blood Pressure 118/73 O2 Sat by Pulse 95 Oximetry Medical Decision Making - Lab Data Result diagrams: 09/20/20 14:22 09/20/20 14:22 Lab Results 09/20/20 09/20/20 Range/Units 14:22 14:22 WBC 9.5 (3.8-10.6) k/uL RBC 4.94 (3.80-5.40) m/uL Hgb 15.0 (11.4-16.0) gm/dL Hct 45.1 (34.0-46.0) % MCV 91.1 (80.0-100.0) fL MCH 30.3 (25.0-35.0) pg MCHC 33.2 (31.0-37.0) g/dL RDW 12.9 (11.5-15.5) % Plt Count 187 (150-450) k/uL MPV 7.6 Neutrophils % 78 % Lymphocytes % 9 % Monocytes % 9 % Eosinophils % 1 % Basophils % 1 % Neutrophils # 7.3 (1.3-7.7) k/uL Lymphocytes # 0.9 L (1.0-4.8) k/uL Monocytes # 0.9 (0-1.0) k/uL Eosinophils # 0.1 (0-0.7) k/uL Basophils # 0.1 (0-0.2) k/uL Sodium 138 (137-145) mmol/L Potassium 4.5 (3.5-5.1) mmol/L Chloride 104 (98-107) mmol/L Carbon Dioxide 27 (22-30) mmol/L Anion Gap 7 mmol/L BUN 25 H (7-17) mg/dL Creatinine 0.61 (0.52-1.04) mg/dL Est GFR (CKD-EPI)AfAm >90 (>60 ml/min/1.73 sqM) Est GFR (CKD-EPI)NonAf 84 (>60 ml/min/1.73 sqM) Glucose 90 (74-99) mg/dL Calcium 9.5 (8.4-10.2) mg/dL Magnesium 2.0 (1.6-2.3) mg/dL Total Bilirubin 0.6 (0.2-1.3) mg/dL AST 33 (14-36) U/L ALT 37 H (4-34) U/L Alkaline Phosphatase 76 (38-126) U/L Creatine Kinase 20 L (30-135) U/L Total Protein 7.2 (6.3-8.2) g/dL Albumin 4.0 (3.5-5.0) g/dL Disposition Clinical Impression: Dehydration Disposition: HOME SELF-CARE Condition: Good Instructions (If sedation given, give patient instructions): Dehydration (ED) Is patient prescribed a controlled substance at d/c from ED?: No Referrals: Carolyn Bright MD [Primary Care Provider] - 1-2 days
[2020-09-20 14:51] LABS: ALT 37 U/L (4-34); AST 33 U/L (14-36); African American GFR (CKD) >90 (>60 ml/min/1.73 sqM); Alkaline Phosphatase 76 U/L (38-126); Anion Gap 7 mmol/L; Blood Urea Nitrogen 25 mg/dL (7-17); Calcium 9.5 mg/dL (8.4-10.2); Carbon Dioxide 27 mmol/L (22-30); Chloride 104 mmol/L (98-107); Creatine Kinase 20 U/L (30-135); Glucose 90 mg/dL (74-99); Non-African American GFR(CKD) 84 (>60 ml/min/1.73 sqM); Potassium 4.5 mmol/L (3.5-5.1); Sodium 138 mmol/L (137-145); Total Bilirubin 0.6 mg/dL (0.2-1.3); Total Protein 7.2 g/dL (6.3-8.2)
[2020-09-20 15:29] VITALS: BP 138/88; PULSE 75
== END 2020-09-20 15:29 | disposition home or self-care (01) ==
LOC: EC 13:44
DX: E86.0 Dehydration (principal); F41.9 Anxiety disorder, unspecified; R11.0 Nausea; F32.9 Major depressive disorder, single episode, unspecified; K21.9 Gastro-esophageal reflux disease without esophagitis; E78.5 Hyperlipidemia, unspecified; I10 Essential (primary) hypertension; M19.90 Unspecified osteoarthritis, unspecified site; E03.9 Hypothyroidism, unspecified; G89.29 Other chronic pain; G47.33 Obstructive sleep apnea (adult) (pediatric); Z99.89 Dependence on other enabling machines and devices; Z85.828 Personal history of other malignant neoplasm of skin; Z85.3 Personal history of malignant neoplasm of breast; Z92.3 Personal history of irradiation; Z88.6 Allergy status to analgesic agent; Z88.5 Allergy status to narcotic agent; Z88.2 Allergy status to sulfonamides; Z79.890 Hormone replacement therapy; Z79.899 Other long term (current) drug therapy
CPT/HCPCS: 36415; 80053; 82550; 83735; 85025; 96360; 99283

== ENCOUNTER → 2021-08-13 | Outpatient (CLI) | payer MEDICARE ==
[2021-08-13 15:40] LABS: Basophils # (A) 0.08 X 10*3/uL (0.00-0.10); Basophils % (A) 1.8 %; Eosinophils # (A) 0.18 X 10*3/uL (0.04-0.35); Eosinophils % (A) 4.1 %; HCT 43.5 % (37.2-46.3); HGB 13.8 g/dL (12.0-15.0); Lymphocytes # (A) 1.15 X 10*3/uL (0.90-5.00); Lymphocytes % (A) 26.3 %; MCH 29.6 pg (27.0-32.0); MCHC 31.7 g/dL (32.0-37.0); MCV 93.3 fL (80.0-97.0); Mean Platelet Volume 10.4 fL (9.5-12.2); Monocytes # (A) 0.51 X 10*3/uL (0.20-1.00); Monocytes % (A) 11.7 %; Neutrophils # (A) 2.44 X 10*3/uL (1.80-7.70); Neutrophils % (A) 55.9 %; Platelet Count 208 X 10*3/uL (140-440); RBC 4.66 X 10*6/uL (4.10-5.20); WBC 4.37 X 10*3/uL (4.50-10.00)
[2021-08-13 16:47] LABS: ALT 20 U/L (8-44); AST 25 U/L (13-35); Albumin 4.1 g/dL (3.8-4.9); Albumin/Globulin Ratio 1.52 (1.60-3.17); Alkaline Phosphatase 73 U/L (41-126); BUN/Creat Ratio 20.38 Ratio (12.00-20.00); Blood Urea Nitrogen 16.3 mg/dL (9.0-27.0); Calcium 9.4 mg/dL (8.7-10.3); Chloride 107 mmol/L (96-109); Chol/HDL Ratio 4.18 Ratio; Globulin 2.7 g/dL (1.6-3.3); Glucose 102 mg/dL (70-110); LDL Cholesterol,Calculated 112.1 mg/dL (0.0-131.0); Non-African American GFR(CKD) 68.2 (60.0-200.0); Potassium 4.1 mmol/L (3.5-5.5); Sodium 144 mmol/L (135-145); Total Protein 6.8 g/dL (6.2-8.2)
== END | disposition home or self-care (01) ==
LOC: LABWHC1 08:53
PROVIDERS: ATTEND Internal Medicine
DX: Z00.00 Encounter for general adult medical examination without abnormal findings (principal)
CPT/HCPCS: 36415; 80053; 80061; 84439; 84443; 85025

== ENCOUNTER 2022-06-25 18:04 | Emergency (ER) | payer MEDICARE ==
[2022-06-25 18:53] VITALS: BP 125/74; PULSE 94; RESP 20; TEMP 98.3
[2022-06-25 19:39] LABS: Appearance,Urine Clear (Clear); Bilirubin,Urine Negative (Negative); Blood,Urine Negative (Negative); Color,Urine Yellow; Glucose,Urine (UA) Negative (Negative); Ketones,Urine Negative (Negative); Leukocyte Esterase,Urine Small (Negative); Mucus,Urine Occasional /hpf; Nitrite,Urine Negative (Negative); PH, Urine 5.5 (5.0-8.0); Protein,Urine Trace (Negative); RBC,Urine 1 /hpf (0-5); Specific Gravity,Urine 1.018 (1.001-1.035); Squamous Epithelial Cell,Urine <1 /hpf (0-4); Urobilinogen,Urine <2.0 mg/dL (<2.0); WBC,Urine 9 /hpf (0-5)
--- NOTE | 2022-06-25 19:53 | ED ---
Female Urogenital HPI - General Chief complaint: Urogenital Stated complaint: Trouble urinating Time Seen by Provider: 06/25/22 19:46 Source: patient Mode of arrival: ambulatory Limitations: no limitations - History of Present Illness Initial comments: Patient is an 86-year-old female with a past medical history of urinary tract infection who presents to the emergency department with a chief complaint of burning with urination. States burning started today. Patient noticed her urine was dark in color. Also reports increased urgency and frequency. Denies fever, chills, abdominal pain, nausea, vomiting, blood in urine. - Related Data Home Medications Medication Instructions Recorded Confirmed Alendronate Sodium [Fosamax] 70 mg PO CRUZ 03/07/14 09/02/19 Levothyroxine Sodium [Synthroid] 25 mcg PO HS 03/07/14 09/02/19 Simvastatin [Zocor] 20 mg PO HS 11/08/15 09/02/19 Anastrozole [Arimidex] 1 mg PO DAILY@1200 10/16/16 09/02/19 Calcium Carb-Vit D 500Mg-5Mcg 1 tab PO DAILY 10/16/16 09/02/19 [Oscal 500+D 5 Mcg (200 Iu)] Multivitamins, Thera [Multivitamin 1 tab PO DAILY 10/16/16 09/02/19 (formulary)] Cetirizine HCl 10 mg PO DAILY 09/14/18 09/02/19 Cholecalciferol [Vitamin D3] 5,000 unit PO DAILY 09/14/18 09/02/19 Folic Acid 1 mg PO DAILY 09/14/18 09/02/19 Vitamin B Complex 1 cap PO DAILY 09/14/18 09/02/19 ALPRAZolam [ALPRAZolam XR] 0.5 mg PO DAILY PRN 09/02/19 09/02/19 Acetaminophen Tab [Tylenol Tab] 325 mg PO Q6H PRN 09/02/19 09/02/19 Artificial Tears-Hypromellose 1 drops BOTH EYES Q4H PRN 09/02/19 09/02/19 [Artificial Tear Drops] Docusate [Colace] 100 mg PO DAILY PRN 09/02/19 09/02/19 Famotidine [Pepcid] 40 mg PO DAILY 09/02/19 09/02/19 Ferrous Sulfate [Feosol] 325 mg PO DAILY 09/02/19 09/02/19 Losartan Potassium [Cozaar] 25 mg PO DAILY 09/02/19 09/02/19 Metoprolol Tartrate [Lopressor] 50 mg PO BID 09/02/19 09/02/19 Previous Rx's Medication Instructions Recorded Omeprazole [PriLOSEC] 40 mg PO AC-BRKFST #14 capsule. 08/16/18 Cephalexin [Keflex] 250 mg PO Q6HR 5 Days #20 cap 06/25/22 Phenazopyridine [Pyridium] 200 mg PO TID PRN #9 tablet 06/25/22 Allergies Allergy/AdvReac Type Severity Reaction Status Date / Time aspirin AdvReac Epistaxis Verified 06/25/22 18:53 codeine AdvReac Nausea Verified 06/25/22 18:53 morphine AdvReac Nausea Verified 06/25/22 18:53 sulfur dioxide AdvReac Nausea Verified 06/25/22 18:53 Review of Systems ROS Statement: Those systems with pertinent positive or pertinent negative responses have been documented in the HPI. ROS Other: All systems not noted in ROS Statement are negative. 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 History of Any Multi-Drug Resistant Organisms: None Reported Past Surgical History: Breast Surgery, Orthopedic Surgery, Tonsillectomy Additional Past Surgical History / Comment(s): Skin cancer removed from L side of nose, L knee surgery on meniscus, R breast lumpectomy, colonoscopy, bilateral cataract removals/lens implants. 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 Father Family Medical History: No Reported History Additional Family Medical History / Comment(s): from a fall Brother(s) Family Medical History: Cancer Additional Family Medical History / Comment(s): Stage IV prostate CA that has gone to the bone General Exam Limitations: no limitations General appearance: alert Head exam: Present: atraumatic, normocephalic, normal inspection Respiratory exam: Present: normal lung sounds bilaterally. Absent: respiratory distress, wheezes, rales, rhonchi, stridor Cardiovascular Exam: Present: regular rate, normal rhythm, normal heart sounds. Absent: systolic murmur, diastolic murmur, rubs, gallop, clicks GI/Abdominal exam: Present: soft, normal bowel sounds. Absent: distended, tenderness, guarding, rebound, rigid Neurological exam: Present: alert, oriented X3, CN II-XII intact Psychiatric exam: Present: normal affect, normal mood Skin exam: Present: warm, dry, intact, normal color. Absent: rash Course Vital Signs 06/25/22 18:48 Temperature 98.3 F Pulse Rate 94 Respiratory 20 Rate Blood Pressure 125/74 O2 Sat by Pulse 94 L Oximetry Medical Decision Making - Medical Decision Making This is a 86-year-old female who presents with urinary tract infection symptoms. No fever or tachycardia. No flank pain. Urinalysis shows 9 WBCs and small leukocyte esterase. Given patient's history of urinary tract infection with her symptoms today I will treat for early urinary tract infection. First dose of Keflex and Pyridium in the emergency department. Patient to follow up with primary care provider. Dr. Cummings is my attending. - Lab Data Lab Results 06/25/22 Range/Units 18:53 Urine Color Yellow Urine Appearance Clear (Clear) Urine pH 5.5 (5.0-8.0) Ur Specific [place] 1.018 (1.001-1.035) Urine Protein Trace H (Negative) Urine Glucose (UA) Negative (Negative) Urine Ketones Negative (Negative) Urine Blood Negative (Negative) Urine Nitrite Negative (Negative) Urine Bilirubin Negative (Negative) Urine Urobilinogen <2.0 (<2.0) mg/dL Ur Leukocyte Esterase Small H (Negative) Urine RBC 1 (0-5) /hpf Urine WBC 9 H (0-5) /hpf Ur Squamous Epith Cells <1 (0-4) /hpf Urine Mucus Occasional H (None) /hpf Disposition Clinical Impression: Urinary tract infection, Burning with urination Disposition: HOME SELF-CARE Condition: Good Instructions (If sedation given, give patient instructions): Urinary Tract Infection in Women (ED) Additional Instructions: Take medication as directed. Prescription sent to [facility] in [facility]. Increase water intake which will help eliminate infection. Avoid caffeine such as soda and coffee. Follow-up with primary care provider in one to 2 days. Return to the emergency department experience new, concerning, or worsening symptoms. Prescriptions: Cephalexin [Keflex] 250 mg PO Q6HR 5 Days #20 cap Phenazopyridine [Pyridium] 200 mg PO TID PRN #9 tablet PRN Reason: Pain Is patient prescribed a controlled substance at d/c from ED?: No Referrals: Carolyn Bright MD [Primary Care Provider] - 1-2 days Time of Disposition: 19:52
[2022-06-25] MEDS ORDERED: CEPHALEXIN 250 MG CAP PO STA (20:00)
[2022-06-25] MEDS ORDERED: PHENAZOPYRIDINE 100 MG TAB PO STA (20:01)
== END 2022-06-25 20:37 | disposition home or self-care (01) ==
LOC: EC 18:04
DX: N39.0 Urinary tract infection, site not specified (principal); R30.0 Dysuria; K21.9 Gastro-esophageal reflux disease without esophagitis; E78.5 Hyperlipidemia, unspecified; I10 Essential (primary) hypertension; M19.90 Unspecified osteoarthritis, unspecified site; E07.9 Disorder of thyroid, unspecified; F41.9 Anxiety disorder, unspecified; F32.A Depression, unspecified; Z88.6 Allergy status to analgesic agent; Z88.5 Allergy status to narcotic agent; Z88.2 Allergy status to sulfonamides; Z79.890 Hormone replacement therapy; Z79.899 Other long term (current) drug therapy
CPT/HCPCS: 81001; 99283

== ENCOUNTER → 2023-05-17 | Outpatient (CLI) | payer MEDICARE ==
[2023-05-17 14:54] LABS: Basophils # (A) 0.06 X 10*3/uL (0.00-0.10); Basophils % (A) 1.1 %; Eosinophils # (A) 0.23 X 10*3/uL (0.04-0.35); Eosinophils % (A) 4.3 %; HCT 41.5 % (37.2-46.3); Lymphocytes # (A) 1.33 X 10*3/uL (0.90-5.00); MCH 28.8 pg (27.0-32.0); MCHC 31.3 d/dL (32.0-37.0); Mean Platelet Volume 10.5 FL (9.5-12.2); Monocytes # (A) 0.64 X 10*3/uL (0.20-1.00); Monocytes % (A) 12.1 %; NRBC Per 100 WBC 0 X 10*3/uL (0.00-0.01); Neutrophils # (A) 3.04 X 10*3/uL (1.80-7.70); Neutrophils % (A) 57.3 %; Platelet Count 206 X 10*3/uL (140-440); RBC 4.51 X 10*6/uL (4.10-5.20); RDW 14.6 % (11.5-14.5); WBC 5.31 X 10*3/uL (4.50-10.00)
[2023-05-17 19:47] LABS: T4, Free (Free Thyroxine) 1.14 ng/dL (0.80-1.80)
[2023-05-17 20:26] LABS: ALT 20 U/L (8-44); AST 25 U/L (13-35); Albumin 4.3 d/dL (3.8-4.9); Albumin/Globulin Ratio 1.59 Ratio (1.60-3.17); Alkaline Phosphatase 67 U/L (41-126); Blood Urea Nitrogen 18.9 mg/dL (9.0-27.0); Calcium 9.9 mg/dL (8.7-10.3); Carbon Dioxide 24.6 mmol/L (21.6-31.8); Chloride 107 mmol/L (96-109); Chol/HDL Ratio 3.87 Ratio; Globulin 2.7 d/dL (1.6-3.3); Glucose 94 mg/dL (70-110); Potassium 4.7 mmol/L (3.5-5.5); Sodium 144 mmol/L (135-145); Total Bilirubin 0.4 mg/dL (0.3-1.2)
== END | disposition home or self-care (01) ==
LOC: LABWHC1 10:48
PROVIDERS: ATTEND Internal Medicine
DX: I10 Essential (primary) hypertension (principal); E78.5 Hyperlipidemia, unspecified
CPT/HCPCS: 36415; 80053; 80061; 84439; 84443; 85025

== ENCOUNTER 2023-10-17 11:57 | Inpatient (IN) | payer MEDICARE ==
[2023-10-17] MEDS ORDERED: HYDROmorphone 0.5 MG/0.5 ML SYRINGE IVP STA (12:07)
--- NOTE | 2023-10-17 12:19 | ED ---
General Adult HPI - General Chief complaint: Extremity Injury, Lower Stated complaint: L Ankle Injury Time Seen by Provider: 10/17/23 12:03 Source: patient, EMS, RN notes reviewed, old records reviewed Mode of arrival: EMS - History of Present Illness Initial comments: 88-year-old female with ground-level fall. Patient states she tripped falling with injury to the left ankle. She denies head or neck trauma. She denies anticoagulation. No loss conscious. Denies any other extremity injury other than the left ankle. - Related Data Home Medications Medication Instructions Recorded Confirmed Levothyroxine Sodium [Synthroid] 25 mcg PO DAILY 03/07/14 10/17/23 Anastrozole [Arimidex] 1 mg PO DAILY@1200 10/16/16 10/17/23 Docusate [Colace] 100 mg PO DAILY@1200 09/02/19 10/17/23 Losartan Potassium [Cozaar] 25 mg PO HS 09/02/19 10/17/23 Metoprolol Tartrate [Lopressor] 50 mg PO BID@1200,2100 09/02/19 10/17/23 Aspirin EC [Ecotrin Low Dose] 81 mg PO DAILY@1200 10/17/23 10/17/23 Rosuvastatin Calcium [Crestor] 40 mg PO HS 10/17/23 10/17/23 Allergies Allergy/AdvReac Type Severity Reaction Status Date / Time aspirin AdvReac Epistaxis Verified 10/17/23 13:47 codeine AdvReac Nausea Verified 10/17/23 13:47 morphine AdvReac Nausea Verified 10/17/23 13:47 sulfur dioxide AdvReac Nausea Verified 10/17/23 13:47 Review of Systems ROS Statement: Those systems with pertinent positive or pertinent negative responses have been documented in the HPI. ROS Other: All systems not noted in ROS Statement are negative. Past Medical History Past Medical History: Cancer, GERD/Reflux, Hyperlipidemia, Hypertension, Osteoarthritis (OA), Sleep Apnea/CPAP/BIPAP, Syncope, Thyroid Disorder Additional Past Medical History / Comment(s): Basal cell skin cancer removed f rom nose, L breast cancer with lumpectomy and radiation in 2016, hypothyroid, arthritis in multiple joints, DJD, "bad knees" with cortisone injections, chronic low back pain/scoliosis, osteoporosis, diverticulitis, bronchitis, JENNIFFER with CPap use, UTI, [place]MIUT bilaterally with hearing aides (left at home), bilateral legs varicose veins. History of Any Multi-Drug Resistant Organisms: None Reported Past Surgical History: Breast Surgery, Orthopedic Surgery, Tonsillectomy Additional Past Surgical History / Comment(s): Skin cancer removed from L side of nose, L knee surgery on meniscus, R breast lumpectomy, colonoscopy, bilateral cataract removals/lens implants. 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 Father Family Medical History: No Reported History Additional Family Medical History / Comment(s): from a fall Brother(s) Family Medical History: Cancer Additional Family Medical History / Comment(s): Stage IV prostate CA that has gone to the bone General Exam General appearance: alert, in no apparent distress Head exam: Present: atraumatic, normocephalic Eye exam: Present: normal appearance, PERRL ENT exam: Present: normal exam Neck exam: Present: normal inspection. Absent: tenderness, meningismus Respiratory exam: Present: normal lung sounds bilaterally. Absent: respiratory distress, wheezes Cardiovascular Exam: Present: regular rate, normal rhythm GI/Abdominal exam: Present: soft. Absent: distended, tenderness Extremities exam: Present: other (Deformity left ankle with lateral angulation of the foot, distal pulses, DP 2+, normal cap refill) Neurological exam: Present: alert, oriented X3, CN II-XII intact. Absent: motor sensory deficit Psychiatric exam: Present: normal affect, normal mood Skin exam: Present: warm, dry Course Vital Signs 10/17/23 10/17/23 10/17/23 12:02 13:07 14:43 Temperature 97.7 F Pulse Rate 66 59 L 63 Respiratory 16 18 16 Rate Blood Pressure 117/69 99/60 146/82 O2 Sat by Pulse 95 92 L 98 Oximetry Procedures - Orthopedic Fracture Reduction Fracture #1 Consent Obtained: verbal consent Side: left Fracture Reduction Location: tibia, fibula Analgesia: other (0.5 mg Dilaudid) Technique: direct manipulation Post Reduction X-rays Demonstrate: acceptable reduction Post-Reduction Neuro Exam: intact Post-Reduction Vascular Exam: intact Splint Applied: Yes Patient Tolerated Procedure: well - Orthopedic Splinting/Casting Injury #1 Side: left Upper Extremity Immobilizer: posterior splint, sugar tong splint Lower Extremity Injury Location: ankle Medical Decision Making - Medical Decision Making Was pt. sent in by a medical professional or institution ([facility], [employer], urgent care, hospital, or detention...) When possible be specific @ -No Did you speak to anyone other than the patient for history (EMS, parent, family, police, friend...)? What history was obtained from this source @ -No Did you review nursing and triage notes (agree or disagree)? Why? @ -I reviewed and agree with nursing and triage notes Were old charts reviewed (outside hosp., previous admission, EMS record, old EKG, old radiological studies, urgent care reports/EKG's, detention records)? Report findings @ -No old charts were reviewed Differential Diagnosis (chest pain, altered mental status, abdominal pain women, abdominal pain men, vaginal bleeding, weakness, fever, dyspnea, syncope, headache, dizziness, GI bleed, back pain, seizure, CVA, palpatations, mental health, musculoskeletal)? @ -[Differential Musculoskeletal Muscular strain, contusion, ligament sprain, fracture, arthritis, septic arthritis, bursitis, cellulitis, muscle spasm, nerve compression, DVT, arterial occlusion, herpes zoster, electrolyte abnormality, tumor.... This is not meant to be in all inclusive list EKG interpreted by me (3pts min.). @ -Sinus rhythm with first-degree AV block rate is 62, MN interval 220, QRS duration 77, QTC [address] segment elevation. X-rays interpreted by me (1pt min.). @ Initial x-ray showing comminuted angulated trimalleolar fracture, postreduction x-ray shows acceptable alignment. CT interpreted by me (1pt min.). @ -None done U/S interpreted by me (1pt. min.). @ -None done What testing was considered but not performed or refused? (CT, X-rays, U/S, labs)? Why? @ -None What meds were considered but not given or refused? Why? @ -None Did you discuss the management of the patient with other professionals (professionals i.e. Dr., PA, [employer], lab, RT, psych nurse, forensic social worker, autos disassembler, teacher, sanitation officer, director case management)? Give summary @ -No Was smoking cessation discussed for >3mins.? @ -No Was critical care preformed (if so, how long)? @ -No Were there social determinants of health that impacted care today? How? (Homelessness, low income, unemployed, alcoholism, drug addiction, transportation, low edu. Level, literacy, decrease access to med. care, assisted, rehab)? @ -No Was there de-escalation of care discussed even if they declined (Discuss DNR or withdrawal of care, Hospice)? DNR status @ -No What co-morbidities impacted this encounter? (DM, HTN, Smoking, COPD, CAD, Cancer, CVA, ARF, Chemo, Hep., AIDS, mental health diagnosis, sleep apnea, morbid obesity)? @ -[Hypertension Was patient admitted / discharged? Hospital course, mention meds given and route, prescriptions, significant lab abnormalities, going to OR and other pertinent info. @ -88-year-old female with ground-level fall, no head injury, angulated deformity of the left ankle present, distal pulses intact. Patient required only minimal pain medication for reduction, 0.5 mg of Dilaudid. She has no pain at rest. Postreduction x-ray shows acceptable alignment. Case discussed with orthopedics, Dr. Romero who will admit. Patient will be kept nothing by mouth for likely surgical management this afternoon. I did discuss case with sound physician Dr. Pearson who will evaluate the patient for preoperative clearance. Laboratory testing, chest x-ray, EKG pending. Undiagnosed new problem with uncertain prognosis? @ -No Drug Therapy requiring intensive monitoring for toxicity (Heparin, Nitro, Insulin, Cardizem)? @ -No Were any procedures done? @ -No Diagnosis/symptom? @ -[Left trimalleolar fracture Acute, or Chronic, or Acute on Chronic? @ -[Acute Uncomplicated (without systemic symptoms) or Complicated (systemic symptoms)? @ -default Side effects of treatment? @ -No Exacerbation, Progression, or Severe Exacerbation? @ -No Poses a threat to life or bodily function? How? (Chest pain, USA, PA, pneumonia, PE, COPD, DKA, ARF, appy, cholecystitis, CVA, Diverticulitis, Homicidal, Suicidal, threat to staff... and all critical care pts) @ -[Low risk at this time - Lab Data Result diagrams: 10/17/23 12:49 10/17/23 12:49 Lab Results 10/17/23 10/17/23 10/17/23 Range/Units 12:49 12:49 12:49 WBC 8.5 (3.8-10.6) k/uL RBC 4.50 (3.80-5.40) m/uL Hgb 13.7 (11.4-16.0) gm/dL Hct 41.5 (34.0-46.0) % MCV 92.1 (80.0-100.0) fL MCH 30.4 (25.0-35.0) pg MCHC 33.1 (31.0-37.0) g/dL RDW 14.3 (11.5-15.5) % Plt Count 178 (150-450) k/uL MPV 7.6 Neutrophils % 82 % Lymphocytes % 10 % Monocytes % 5 % Eosinophils % 1 % Basophils % 1 % Neutrophils # 7.0 (1.3-7.7) k/uL Lymphocytes # 0.9 L (1.0-4.8) k/uL Monocytes # 0.4 (0-1.0) k/uL Eosinophils # 0.1 (0-0.7) k/uL Basophils # 0.1 (0-0.2) k/uL PT 13.4 H (10.0-12.5) sec INR 1.3 H (<1.2) APTT 24.8 (22.0-30.0) sec Sodium 140 (137-145) mmol/L Potassium 4.5 (3.5-5.1) mmol/L Chloride 108 H (98-107) mmol/L Carbon Dioxide 25 (22-30) mmol/L Anion Gap 7 mmol/L BUN 22 H (7-17) mg/dL Creatinine 0.79 (0.52-1.04) mg/dL Est GFR (CKD-EPI)AfAm 79 (>60 ml/min/1.73 sqM) Est GFR (CKD-EPI)NonAf 69 (>60 ml/min/1.73 sqM) Glucose 125 H (74-99) mg/dL Calcium 9.7 (8.4-10.2) mg/dL Total Bilirubin 0.5 (0.2-1.3) mg/dL AST 26 (14-36) U/L ALT 16 (4-34) U/L Alkaline Phosphatase 62 (38-126) U/L Total Protein 6.9 (6.3-8.2) g/dL Albumin 3.9 (3.5-5.0) g/dL Disposition Clinical Impression: Trimalleolar fracture of ankle, closed Disposition: ADMITTED IP TO THIS HOSP Condition: Stable Is patient prescribed a controlled substance at d/c from ED?: No Time of Disposition: 14:21
--- NOTE | 2023-10-17 12:32 | XR ---
EXAMINATION TYPE: XR ankle limited LT DATE OF EXAM: 10/17/2023 COMPARISON: NONE HISTORY: Pain FINDINGS: Two views of the ankle demonstrate diffuse osteopenia with a displaced comminuted fracture of the dis rosa m fibula. There is a displaced fracture of the medial malleolus with suspicion of a posterior dista l tibial fracture. Findings suggestive of a trimalleolar fracture. There is marked dislocation of the tibia relative to the talus. There is a lucency involving the talar dome and a fracture involving th e talar dome in the differential diagnosis. Arthropathy of the intertarsal bones. Remote fracture thi rd metatarsal. Diffuse osteopenia. IMPRESSION: 1. Acute displaced trimalleolar fracture with dislocation of the tibia. 2. Findings suspicious for a talar dome fracture.
[2023-10-17 13:00] LABS: Basophils # (A) 0.1 k/uL (0-0.2); Basophils % (A) 1 %; Eosinophils # (A) 0.1 k/uL (0-0.7); Eosinophils % (A) 1 %; HCT 41.5 % (34.0-46.0); HGB 13.7 gm/dL (11.4-16.0); Lymphocytes # (A) 0.9 k/uL (1.0-4.8); Lymphocytes % (A) 10 %; MCH 30.4 pg (25.0-35.0); MCHC 33.1 g/dL (31.0-37.0); MCV 92.1 fL (80.0-100.0); Mean Platelet Volume 7.6; Monocytes # (A) 0.4 k/uL (0-1.0); Monocytes % (A) 5 %; Neutrophils % (A) 82 %; Platelet Count 178 k/uL (150-450); RDW 14.3 % (11.5-15.5); WBC 8.5 k/uL (3.8-10.6)
[2023-10-17] MEDS ORDERED: SODIUM CHLORIDE 0.9% 1,000 ML IV ONE (13:06)
[2023-10-17 13:12] LABS: INR 1.3 (<1.2); Partial Thromboplastin Time 24.8 sec (22.0-30.0); Prothrombin Time 13.4 sec (10.0-12.5)
--- NOTE | 2023-10-17 13:34 | XR ---
EXAMINATION TYPE: XR ankle limited LT DATE OF EXAM: 10/17/2023 COMPARISON: 10/17/2023 HISTORY: Postreduction FINDINGS: Two views of the ankle demonstrate interval casting material or wrapping material with improved align ment of a comminuted fracture of the distal fibula and medial malleolus. Suspect there may be a subtl e posterior tibial fracture and trimalleolar fracture extending to the articular surface. There remai ns asymmetry and distortion of the ankle mortise and subluxation of the tibia which is markedly impro matt. Thin lucency along the talar dome is again noted. Cannot exclude a subtle talar fracture. Osteopenia with hypertrophic arthropathy of the tarsometatarsal and intertarsal joints. IMPRESSION: 1. Comminuted fractures of the distal tibia and fibula with improved alignment but persistent distort ion of the ankle mortise.
[2023-10-17] MEDS ORDERED: NALOXONE 0.4 MG/ML 1 ML VIAL IV PRN ×2 (14:10→22:25)
[2023-10-17] MEDS ORDERED: ACETAMINOPHEN TAB 325 MG TAB PO PRN (14:17)
[2023-10-17 14:19] LABS: ALT 16 U/L (4-34); AST 26 U/L (14-36); African American GFR (CKD) 79 (>60 ml/min/1.73 sqM); Albumin 3.9 g/dL (3.5-5.0); Alkaline Phosphatase 62 U/L (38-126); Anion Gap 7 mmol/L; Blood Urea Nitrogen 22 mg/dL (7-17); Calcium 9.7 mg/dL (8.4-10.2); Carbon Dioxide 25 mmol/L (22-30); Chloride 108 mmol/L (98-107); Glucose 125 mg/dL (74-99); Non-African American GFR(CKD) 69 (>60 ml/min/1.73 sqM); Potassium 4.5 mmol/L (3.5-5.1); Sodium 140 mmol/L (137-145); Total Bilirubin 0.5 mg/dL (0.2-1.3); Total Protein 6.9 g/dL (6.3-8.2)
--- NOTE | 2023-10-17 14:35 | XR ---
EXAMINATION TYPE: XR chest 1V portable DATE OF EXAM: 10/17/2023 COMPARISON: 09/02/2019 HISTORY: pre op TECHNIQUE: Single frontal view of the chest is obtained. FINDINGS: There is evidence of aortic repair surgery with limited inspiration elevated right hemidia phragm. Prominence of right paratracheal stripe is noted likely related to vascular ectasia. Bilatera l shoulder arthropathy with diffuse osteopenia. Basilar atelectasis or scarring bilaterally. No sizab le pneumothorax. IMPRESSION: 1. Bibasilar atelectasis or scarring favored over pneumonia. 2. Aortic repair surgery.
[2023-10-17] MEDS: SODIUM CHLORIDE 0.9% 1,000 ML IV SCH ×3 (14:42→23:21)
[2023-10-17] MEDS ORDERED: ONDANSETRON 4 MG/2 ML VIAL IVP STA (15:35)
--- NOTE | 2023-10-17 15:57 | P.CONS ---
History of Present Illness - Reason for Consult Consult date: 10/17/23 Medical Clearance and management Requesting physician: Ang Romero - History of Present Illness History of Presenting Illness: Patient is a very pleasant 88-year-old female with a past medical history of hypertension, hyperlipidemia, thoracic aortic aneurysm status post repair October [address] Prado at [facility], hypothyroidism, osteoarthritis, breast cancer status post lumpectomy and radiation 2016, and previous diagnosis of obstructive sleep apnea, mild pulmonary fibrosis and mild pulmonary hypertension previously CPAP dependent nightly but states she has not used CPAP in years. She presented to the emergency department today status post trip and fall at home resulting in injury to her left ankle. She denied hitting her head or havi ng any loss of consciousness and denied any dizziness/lightheadedness, chest pain, or palpitations prior to fall. She underwent full evaluation in the emergency department. X-ray left ankle revealed an acute displaced bimalleolar fracture with disassociation of the tibia along with suspicions for a talar dome fracture. Labs completed and reviewed. CBC was unremarkable with WBC count of 8.5, hemoglobin 13.7, and platelet count of 178. BMP showing no significant abnormalities with sodium 140, potassium 4.5, chloride 108, bicarb 25, anion gap of 7, and slightly elevated BUN of 22 with normal creatinine of 0.79 and GFR of 69. Glucose was 125. Liver profile was unremarkable. Chest x-ray showing bibasilar atelectasis/scarring and evidence of aortic surgical repair, negative for acute cardiopulmonary process. Patient underwent closed reduction of fracture in the emergency department with repeat x-ray showing comminuted fractures of the distal tibia and fibula with improvement in alignment but persistent distortion of the ankle mortise. Ortho-Glass splint was placed to left lower extremity. Patient was then admitted to orthopedic surgery team under Dr. Romero and we were consulted for preoperative clearance and medical management throughout her hospitalization. Patient seen and fully evaluated at bedside in the emergency department room 9. She was resting comfortably and currently reports controlled pain in her left lower extremity. Patient denies hitting her head, having a loss of consciousness, or sustaining any other injuries during her mechanical trip and fall. She denied any dizziness, lightheadedness, changes in vision or hearing, chest pain or palpitations, shortness of breath, cough or congestion, nausea, vomiting, or experiencing any numbness/tingling/weakness in her extremities prior to fall. Patient does report she had pain in her left lower leg/ankle but reports since being medicated in the emergency department pain has been controlled. Review of systems: Pertinent positives and negatives as discussed in HPI, a complete review of systems was performed and all other systems are negative. Physical exam: Vital signs reviewed and stable. General: Nontoxic, no distress and appears stated age. Derm: Skin warm and dry, normal coloration for ethnicity. Head: Atraumatic, normocephalic and symmetric. Eyes: EOMs intact, no lid lag, and anicteric sclera Mouth: no lip lesions, mucus membranes moist Cardiovascular: regular rate and rhythm with normal S1S2, no murmur, positive posterior tibial pulses bilaterally, and cap refill < 2 seconds. Lungs: Respirations even, regular, and unlabored on room air. Lungs CTA bilaterally, no rhonchi, no rales, no wheezing, and no accessory muscle usage. Abdominal: soft, nontender to palpation, no guarding, no appreciable organomegaly Ext: No gross muscle atrophy, no edema, no contractures. Movement and sens ation intact in all 4 extremities. Left lower extremity with posterior sugar tong orthoglass leg splint in place and elevated on pillow. Neuro: Speech clear, face symmetrical and CN II-XII grossly intact with no noted focal neuro deficits Psych: Alert and oriented to person, place, time, and situation. Appropriate and pleasant affect. Assessment and Plan of Care: Presurgical clearance -EKG completed and reviewed showing normal sinus rhythm with a first-degree AV block with KS interval of 220 ms, with nonspecific T-wave abnormalities but showing no ST abnormalities, no signs of acute ischemia upon personal review and interpretation. -METS score >4 as patient reports being able to walk 1-2 blocks without experiencing any chest pain or shortness of breath stating she often walks to her hairdresser each week which is multiple blocks from her senior apartment building and completes all of her own activities of daily living independently. -NSQIP shows an above average risk of serious complications placing patient at 3.6% with average of 2.2%, above average risk of development of pneumonia placing patient at a 0.3% risk with average of 0.1%, an above average risk of cardiac complications placing patient at a risk of 0.4% with average risk being 0.1% and an above average risk of placing patient at a 0.3% risk with average being 0.1%. -NSQUIP surgical risk calculator shows patient at an above average risk for surgical intervention, however patient's MET's score is greater than 4 and therefore there are no absolute contraindications to undergo this urgent procedure and further workup is unlikely to change preoperative management. From a medical perspective patient may proceed to surgery without further need of testing or intervention. Trimalleolar dislocated fracture, left -Management per primary admitting orthopedic surgery team, patient scheduled to undergo ORIF of left ankle with repair of trimalleolar fracture later today with Dr. Romero. History of obstructive sleep apnea, previously CPAP dependent nightly Mild pulmonary fibrosis Pulmonary hypertension -Patient follows with Dr. Bright -Pt reports she has not used CPAP in many years. -Chest x-ray showing bibasilar atelectasis/scarring and evidence of aortic surgical repair, negative for acute cardiopulmonary process. -Data Transcriber consulted to evaluate for preoperative clearance and to follow up postoperatively secondary to pt's hx of JENNIFFER, mild pulmonary fibrosis and bibasilar atelectasis and scarring noted on chest x-ray with need to undergo surgical procedure with anesthesia.. Hypertension Hyperlipidemia History of thoracic aortic aneurysm status post repair Continue daily medication regimen with losartan 25 mg nightly, metoprolol 50 mg twice daily, and rosuvastatin 40 mg nightly. Aspirin held pending urgent surgical repair, ORIF of displaced trimalleolar fracture. May resume once cleared by primary admitting orthopedic surgery team. Hypothyroidism Continue daily medication regimen with levothyroxine 25 g daily. History of breast cancer status post lumpectomy and radiation in 2016 now in remission Hold Arimidex, may resume postoperatively once cleared by primary admitting orthopedic surgery team to resume antiestrogen/oncologic medication. Data and imaging reviewed: Vital signs reviewed. Blood pressure currently 146/82, heart rate 63, respiratory rate 16, temp 97.7F, SpO2 of 98% on room air. X-ray left ankle revealed an acute displaced bimalleolar fracture with disassociation of the tibia along with suspicions for a talar dome fracture. Labs completed and reviewed. CBC was unremarkable with WBC count of 8.5, hemoglobin 13.7, and platelet count of 178. BMP showing no significant abnormalities with sodium 140, potassium 4.5, chloride 108, bicarb 25, anion gap of 7, and slightly elevated BUN of 22 with normal creatinine of 0.79 and GFR of 69. Glucose was 125. Liver profile was unremarkable. Chest x-ray showing bibasilar atelectasis/scarring and evidence of aortic surgical repair, negative for acute cardiopulmonary process. Thank you for allowing us to participate in the care of this pleasant patient. Do not hesitate to contact us with questions. Someone can be reached from the [facility] hospitalist group all hours of the day at [phone] or via [employer]. Patient was seen independently by Nurse Practitioner. This document was prepared using Ringly dictation software. Please allow for errors in salesperson floor coverings while rare they do occur. Past Medical History Past Medical History: Cancer, GERD/Reflux, Hyperlipidemia, Hypertension, Osteoarthritis (OA), Sleep Apnea/CPAP/BIPAP, Syncope, Thyroid Disorder Additional Past Medical History / Comment(s): Basal cell skin cancer removed from nose, L breast cancer with lumpectomy and radiation in 2016, hypothyroid, arthritis in multiple joints, DJD, "bad knees" with cortisone injections, chronic low back pain/scoliosis, osteoporosis, diverticulitis, bronchitis, JENNIFFER with CPap use, UTI, [place] bilaterally with hearing aides (left at home), bilateral legs varicose veins. History of Any Multi-Drug Resistant Organisms: None Reported Past Surgical History: Breast Surgery, Orthopedic Surgery, Tonsillectomy Additional Past Surgical History / Comment(s): Skin cancer removed from L side of nose, L knee surgery on meniscus, R breast lumpectomy, colonoscopy, bilateral cataract removals/lens implants. 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 Father Family Medical History: No Reported History Additional Family Medical History / Comment(s): from a fall Brother(s) Family Medical History: Cancer Additional Family Medical History / Comment(s): Stage IV prostate CA that has gone to the bone Medications and Allergies Home Medications Medication Instructions Recorded Confirmed Type Levothyroxine Sodium [Synthroid] 25 mcg PO DAILY 03/07/14 10/17/23 History Anastrozole [Arimidex] 1 mg PO DAILY@1200 10/16/16 10/17/23 History Docusate [Colace] 100 mg PO DAILY@1200 09/02/19 10/17/23 History Losartan Potassium [Cozaar] 25 mg PO HS 09/02/19 10/17/23 History Metoprolol Tartrate [Lopressor] 50 mg PO BID@1200,2100 09/02/19 10/17/23 History Aspirin EC [Ecotrin Low Dose] 81 mg PO DAILY@1200 10/17/23 10/17/23 History Rosuvastatin Calcium [Crestor] 40 mg PO HS 10/17/23 10/17/23 History Allergies Allergy/AdvReac Type Severity Reaction Status Date / Time codeine AdvReac Nausea Verified 10/17/23 13:47 morphine AdvReac Nausea Verified 10/17/23 13:47 sulfur dioxide AdvReac Nausea Verified 10/17/23 13:47 Physical Exam Vitals: Vital Signs Temp Pulse Resp BP Pulse Ox 10/17/23 14:43 63 16 146/82 98 10/17/23 13:07 59 L 18 99/60 92 L 10/17/23 12:02 97.7 F 66 16 117/69 95 Intake and Output 10/17/23 10/17/23 10/17/23 06:59 14:59 22:59 Other: Weight 79.379 kg Results CBC & Chem 7: 10/17/23 12:49 10/17/23 12:49 Labs: Abnormal Lab Results - Last 24 Hours (Table) 10/17/23 10/17/23 10/17/23 Range/Units 12:49 12:49 12:49 Lymphocytes # 0.9 L (1.0-4.8) k/uL PT 13.4 H (10.0-12.5) sec INR 1.3 H (<1.2) Chloride 108 H (98-107) mmol/L BUN 22 H (7-17) mg/dL Glucose 125 H (74-99) mg/dL
--- NOTE | 2023-10-17 15:59 | P.CNPUL ---
History of Present Illness Consult date: 10/17/23 Chief complaint: Ankle fracture, pulmonary fibrosis and sleep apnea History of present illness: 88-year-old female patient with limited pulmonary fibrosis, had a fall and sustained fractures to her left ankle. No head trauma. No loss of consci ousness. She remains hemodynamic is stable. The patient was seen in the emergency department and the patient will need a surgical intervention. The patient is known to me from previous office visits. She has a remote history obstructive sleep apnea and she's not utilizing any form of CPAP therapy. She also has history of breast cancer she has undergone lumpectomy and radiation therapy. She's not complaining of any shortness of breath. She is on room air oxygen. Her chest x-ray shows a endovascular stent grafting a descending thoracic aortic aneurysm and the patient had that surgery done several years back without any complications. No history of any coronary artery disease. No angina. No palpitations. Hemodynamically stable. Cardiac rhythm is sinus. He x-ray of the ankle shows an [employer]al deformity of the left ankle and the patient was seen by orthopedic surgery. The white cell count of 8.5. Hemoglobin 13.7. Patient is at 178. Sodiums of 140, BUN is at 22 with a creatinine of 0.7. LFTs are normal. Coagulation profile is also within normal limits. Review of Systems Constitutional: Reports as per HPI Eyes: denies as per HPI, denies blurred vision, denies bulging eye, denies decreased vision, denies diplopia, denies discharge, denies dry eye, denies irritation, denies itching, denies pain, denies photophobia, denies loss of peripheral vision, denies loss of vision, denies tunnel vision/blind spots Ears: deny: decreased hearing, ear discharge, earache, tinnitus Ears, nose, mouth and throat: Reports as per HPI Breasts: absent: as per HPI, change in shape, gynecomastia, masses, nipple discharge, pain, skin changes, swelling Cardiovascular: Reports as per HPI Respiratory: Reports as per HPI Gastrointestinal: Reports as per HPI Genitourinary: Reports as per HPI Menstruation: Reports as per HPI Musculoskeletal: Reports as per HPI (Ankle fracture, trimalleolar on the left) Musculoskeletal: right: ankle swelling, absent: ankle pain, ankle stiffness Integumentary: Reports as per HPI Neurological: Reports as per HPI Psychiatric: Reports as per HPI Endocrine: Reports as per HPI Hematologic/Lymphatic: Reports as per HPI Allergic/Immunologic: Reports as per HPI Past Medical History Past Medical History: Cancer, GERD/Reflux, Hyperlipidemia, Hypertension, Osteoarthritis (OA), Sleep Apnea/CPAP/BIPAP, Syncope, Thyroid Disorder Additional Past Medical History / Comment(s): Basal cell skin cancer removed from nose, L breast cancer with lumpectomy and radiation in 2016, hypothyroid, arthritis in multiple joints, DJD, "bad knees" with cortisone injections, chronic low back pain/scoliosis, osteoporosis, diverticulitis, bronchitis, JENNIFFER with CPap use, UTI, [place] bilaterally with hearing aides (left at home), bilateral legs varicose veins. History of Any Multi-Drug Resistant Organisms: None Reported Past Surgical History: Breast Surgery, Orthopedic Surgery, Tonsillectomy Additional Past Surgical History / Comment(s): Skin cancer removed from L side of nose, L knee surgery on meniscus, R breast lumpectomy, colonoscopy, bilateral cataract removals/lens implants. 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 Father Family Medical History: No Reported History Additional Family Medical History / Comment(s): from a fall Brother(s) Family Medical History: Cancer Additional Family Medical History / Comment(s): Stage IV prostate CA that has gone to the bone Medications and Allergies Home Medications Medication Instructions Recorded Confirmed Type Levothyroxine Sodium [Synthroid] 25 mcg PO DAILY 03/07/14 10/17/23 History Anastrozole [Arimidex] 1 mg PO DAILY@1200 10/16/16 10/17/23 History Docusate [Colace] 100 mg PO DAILY@1200 09/02/19 10/17/23 History Losartan Potassium [Cozaar] 25 mg PO HS 09/02/19 10/17/23 History Metoprolol Tartrate [Lopressor] 50 mg PO BID@1200,2100 09/02/19 10/17/23 History Aspirin EC [Ecotrin Low Dose] 81 mg PO DAILY@1200 10/17/23 10/17/23 History Rosuvastatin Calcium [Crestor] 40 mg PO HS 10/17/23 10/17/23 History Allergies Allergy/AdvReac Type Severity Reaction Status Date / Time aspirin AdvReac Epistaxis Verified 10/17/23 13:47 codeine AdvReac Nausea Verified 10/17/23 13:47 morphine AdvReac Nausea Verified 10/17/23 13:47 sulfur dioxide AdvReac Nausea Verified 10/17/23 13:47 Physical Exam Vitals: Vital Signs Temp Pulse Resp BP Pulse Ox 10/17/23 15:35 64 16 127/80 96 10/17/23 14:43 63 16 146/82 98 10/17/23 13:07 59 L 18 99/60 92 L 10/17/23 12:02 97.7 F 66 16 117/69 95 Intake and Output 10/17/23 10/17/23 10/17/23 06:59 14:59 22:59 Other: Weight 79.379 kg GENERAL: The patient is alert and oriented x3, not in any acute distress. Well developed, well nourished. The patient is currently on room air oxygen HEENT: Pupils are round and equally reacting to light. EOMI. No scleral icterus. No conjunctival pallor. Normocephalic, atraumatic. No pharyngeal erythema. No thyromegaly. CARDIOVASCULAR: S1 and S2 present. No murmurs, rubs, or gallops. PULMONARY: Chest is clear to auscultation, no wheezing or crackles. ABDOMEN: Soft, nontender, nondistended, normoactive bowel sounds. No palpable organomegaly. MUSCULOSKELETAL: No joint swelling or deformity. EXTREMITIES: No cyanosis, clubbing, or pedal edema. , Splint was applied to the left lower extremity and the patient is neurovascularly intact NEUROLOGICAL: Gross neurological examination did not reveal any focal deficits. SKIN: No rashes. Results - Laboratory Findings CBC and BMP: 10/17/23 12:49 10/17/23 12:49 PT/INR, D-dimer PT 13.4 sec (10.0-12.5) H 10/17/23 12:49 INR 1.3 (<1.2) H 10/17/23 12:49 Abnormal lab findings: Abnormal Labs 10/17/23 10/17/2324 12:49 12:49 12:49 Lymphocytes # 0.9 L PT 13.4 H INR 1.3 H Chloride 108 H BUN 22 H Glucose 125 H - Diagnostic Findings Chest x-ray: image reviewed Assessment and Plan Plan: Bimalleolar left ankle fracture, And the patient has a comminuted fracture of the distal tibia and fibula, awaiting surgery Pulmonary fibrosis, mild, no respiratory insufficiency limitation at this point in time. Oxygenation is within normal limits Obstructive sleep apnea, history of, not utilizing any form of CPAP therapy at this point in time. Hypertension Hyperlipidemia History of breast cancer with a previous lumpectomy followed by radiation therapy in 2016 Hypothyroidism Osteoarthritis Thoracic aortic aneurysm post-endovascular stent grafting Chronic back pain and scoliosis Osteoporosis History of diverticulosis Varicose veins involving the lower extremities bilaterally Plan Obtain a 12-lead EKG Chest x-ray was reviewed and there is no acute abnormalities Provide patient senna spirometer Oxygenation is adequate Proceed with surgery We'll continue to follow up her postop care.
[2023-10-17] MEDS ORDERED: IV FLUID CONTINUATION 900 ML IV ONE (16:42)
--- NOTE | 2023-10-17 17:25 | P.HPOR ---
History of Present Illness H&P Date: 10/17/23 The patient is a very pleasant 88-year-old female with multiple medical problems who sustained a ground-level fall earlier today. She was brought to the emergency department where x-rays showed an ankle fracture dislocation. She underwent closed reduction and application of a splint. Postreduction x-rays showed improvement in alignment but continued lateral displacement of the ankle mortise. The emergency department physician contacted me, stating that there was minimal swelling in the right ankle and that the patient had been nothing by mouth since 8 AM this morning. Given the patient's advanced age and likely needing rehab I suggested admitting the patient and since her ankle wasn't too swollen proceeding with surgery to stabilize her ankle this afternoon if she was medically cleared. I met with the patient and her children prior to surgery. She is complaining of isolated pain in her left ankle. She lives in assisted living but is able to ambulate at her baseline. 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 History of Any Multi-Drug Resistant Organisms: None Reported Past Surgical History: Breast Surgery, Orthopedic Surgery, Tonsillectomy Additional Past Surgical History / Comment(s): Skin cancer removed from L side of nose, L knee surgery on meniscus, R breast lumpectomy, colonoscopy, bilateral cataract removals/lens implants. 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 Father Family Medical History: No Reported History Additional Family Medical History / Comment(s): from a fall Brother(s) Family Medical History: Cancer Additional Family Medical History / Comment(s): Stage IV prostate CA that has gone to the bone Medications and Allergies Home Medications Medication Instructions Recorded Confirmed Type Levothyroxine Sodium [Synthroid] 25 mcg PO DAILY 03/07/14 10/17/23 History Anastrozole [Arimidex] 1 mg PO DAILY@1200 10/16/16 10/17/23 History Docusate [Colace] 100 mg PO DAILY@1200 09/02/19 10/17/23 History Losartan Potassium [Cozaar] 25 mg PO HS 09/02/19 10/17/23 History Metoprolol Tartrate [Lopressor] 50 mg PO BID@1200,2100 09/02/19 10/17/23 History Aspirin EC [Ecotrin Low Dose] 81 mg PO DAILY@1200 10/17/23 10/17/23 History Rosuvastatin Calcium [Crestor] 40 mg PO HS 10/17/23 10/17/23 History Allergies Allergy/AdvReac Type Severity Reaction Status Date / Time codeine AdvReac Nausea Verified 10/17/23 13:47 morphine AdvReac Nausea Verified 10/17/23 13:47 sulfur dioxide AdvReac Nausea Verified 10/17/23 13:47 Physical Examination The patient is alert and able to answer questions. Her head is normocephalic and atraumatic. She demonstrates nonlabored breathing with symmetric chest expansion her abdomen is soft and nonobese. Her bilateral upper extremities and right lower extremity are without deformity. A focused exam of the left lower extremity was conducted. On inspection there was a short leg splint in place which was carefully removed. There were no open wounds and very minimal swelling over the medial lateral malleolus. There is exquisite tenderness over the malleoli. The hip and knee were nontender and had no pain with passive range of motion. Thigh and calf are soft. Motor and sensory function are intact. Results X-rays of the left ankle show comminuted distal fibula and medial malleolus fractures with an ankle fracture dislocation. - Labs Labs: Abnormal Lab Results - Last 24 Hours (Table) 10/17/23 10/17/23 10/17/23 Range/Units 12:49 12:49 12:49 Lymphocytes # 0.9 L (1.0-4.8) k/uL PT 13.4 H (10.0-12.5) sec INR 1.3 H (<1.2) Chloride 108 H (98-107) mmol/L BUN 22 H (7-17) mg/dL Glucose 125 H (74-99) mg/dL H & H 10/17/23 Range/Units 12:49 Hgb 13.7 (11.4-16.0) gm/dL Hct 41.5 (34.0-46.0) % Coagulation 10/17/23 Range/Units 12:49 INR 1.3 H (<1.2) Result Diagrams: 10/17/23 12:49 10/17/23 12:49 Assessment and Plan Assessment: Closed left ankle fracture dislocation Medical medical problems Plan: I met with the patient and her children discuss treatment options. Despite her advanced age of 88 she is relatively active able to ambulate at her baseline. Given the amount of displacement I recommended operative fixation to stabilize the ankle mortise and prevent displacement and wound breakdown. We discussed open reduction and internal fixation with multiple syndesmotic screws. The patient and her family understand the risks of surgery particularly given her advanced age. I had a long discussion with the patient preoperatively in the preoperative holding area. They have a displaced ankle fracture which requires open reduction and internal fixation. We discussed the potential risks and complications of ankle fracture surgery at length. Risks discussed included but are not limited to risks from anesthesia, superficial infection, deep infection, nonunion, malunion, malreduction of the ankle mortise or syndesmosis, damage to local blood vessels or nerves particularly branches of the superficial peroneal nerve, saphenous nerve, and or sural nerve, hardware failure, loss of reduction of the ankle mortise or syndesmosis due to hardware failure, symptomatic hardware, delayed wound healing, wound necrosis, posttraumatic ankle arthritis, stiffness, instability, intra-articular pathology requiring further treatment, need for further surgery, an inability to regain preinjury level of function, dissatisfaction with surgical outcome, DVT, PE, pressure sore, splint complications, and possibly loss of life or limb. The patient understands that while these are the most common complications there are other less common complications possible. They provided their verbal and written consent to go forward with ankle open reduction and internal fixation. All of their questions regarding the procedure and potential complications were answered. Time with Patient: Greater than 30
[2023-10-17] MEDS ORDERED: MIDAZOLAM 2 MG/2 ML VIAL IVP ONE (17:40)
--- NOTE | 2023-10-17 17:49 | P.ANPRN ---
Procedure Note - Anesthesia - Nerve Block Performed Left Adductor Canal Single Time Out Performed: Yes Date of Procedure: 10/17/23 Procedure Start Time: 17: Procedure Stop Time: :31 Location of Patient: PreOp Indication: Acute Post-Operative Pain, Analgesia, Requested by Surgeon Sedation Type: Sedate with meaningful contact maintained Preparation: Sterile Prep Position: Supine Needle Types: Pajunk Needle Gauge: 21 Ultrasound used to visualize needle placement: Yes Ultrasound used to observe medication spread: Yes Injectate: 0.5% Ropivacaine (see comment for volume) (Ropiv 15ml) Blood Aspirated: No Pain Paresthesia on Injection Noted: No Resistance on Injection: Normal Image Stored and Saved: Yes Events: Uneventful and Well Tolerated
--- NOTE | 2023-10-17 17:51 | P.ANPRN ---
Procedure Note - Anesthesia - Nerve Block Performed Left Popliteal Single Time Out Performed: Yes Date of Procedure: 10/17/23 Procedure Start Time: 17:32 Procedure Stop Time: 17:37 Location of Patient: PreOp Indication: Acute Post-Operative Pain, Analgesia, Requested by Surgeon Sedation Type: Sedate with meaningful contact maintained Preparation: Sterile Prep Position: Right Lateral Needle Gauge: 21 Ultrasound used to visualize needle placement: Yes Ultrasound used to observe medication spread: Yes Injectate: 0.5% Ropivacaine (see comment for volume) (Ropiv 20ml) Blood Aspirated: No Pain Paresthesia on Injection Noted: No Resistance on Injection: Normal Image Stored and Saved: Yes Events: Uneventful and Well Tolerated
[2023-10-17] MEDS ORDERED: DEXAMETHASONE SOD PHOSPHATE 4 MG/ML 1 ML VIAL IVP ONE (17:53)
[2023-10-17] MEDS ORDERED: ONDANSETRON 4 MG/2 ML VIAL IVP ONE (17:53)
[2023-10-17] MEDS ORDERED: ONDANSETRON 4 MG/2 ML VIAL ONE (17:55)
[2023-10-17] MEDS ORDERED: FAMOTIDINE 20 MG/2 ML VIAL IVP ONE (18:18)
[2023-10-17] MEDS ORDERED: SUCCINYLCHOLINE CHLORIDE 200 MG/10 ML VIAL IV ONE (20:30)
[2023-10-17] MEDS ORDERED: ROPIVACAINE 5 MG/ML 30 ML VIAL ONE (20:30)
[2023-10-17] MEDS ORDERED: PROPOFOL 10 MG/ML 20 ML VIAL IV ONE (20:30)
[2023-10-17] MEDS ORDERED: fentaNYL (PF) 50 MCG/ML 2 ML AMP ONE (20:30)
[2023-10-17] MEDS ORDERED: LIDOCAINE 1% INJ 10MG/ML (20 ML MDV) ONE (20:30)
[2023-10-17] MEDS ORDERED: SODIUM CHLORIDE 0.9% 100 ML with ceFAZolin 2,000 MG IV ONE ×2 (20:30)
[2023-10-17] MEDS ORDERED: LACTATED RINGERS 1,000 ML IV ONE (20:56)
[2023-10-17] MEDS ORDERED: ONDANSETRON 4 MG/2 ML VIAL IVP PRN (22:25)
[2023-10-17] MEDS ORDERED: HYDROcodone/APAP 10-325MG 1 EACH TAB PO PRN (22:25)
[2023-10-17] MEDS: METOPROLOL TARTRATE 50 MG TAB PO SCH (23:20)
[2023-10-17] MEDS: ATORVASTATIN 80 MG TAB PO SCH (23:20)
[2023-10-17] MEDS: LOSARTAN 25 MG TAB PO SCH (23:20)
--- NOTE | 2023-10-18 05:04 | FL ---
EXAMINATION TYPE: FL guidance operating room, XR ankle complete LT DATE OF EXAM: 10/17/2023 CLINICAL HISTORY: Left ankle fracture. TECHNIQUE: Fluoroscopy. Intraoperative 3 views of the left ankle. COMPARISON: Left ankle x-ray earlier today. FINDINGS: Fluoroscopic guidance was provided during open reduction internal fixation procedure perfo rmed by Dr. Romero. A total of 1.47 per minute of fluoroscopic time was utilized during the proced ure and 6 spot images was acquired. Total dose area product (DAP) in uGy*m?, mGy*cm? (or similar: 1. 6832. Intraoperative images acquired show placement of fixating plates through acute displaced bimalleolar fractures with improved alignment after reduction and fixation. Some ankle mortise asymmetry remains present. IMPRESSION: As Above.
[2023-10-18] MEDS: LEVOTHYROXINE 25 MCG TAB PO SCH (08:05)
[2023-10-18] MEDS: ASPIRIN 81 MG PO SCH ×3 (08:05→20:17)
--- NOTE | 2023-10-18 11:43 | P.OP ---
Date of Procedure: 10/17/23 Preoperative Diagnosis: 1. Left bimalleolar ankle fracture dislocation with comminuted fibula and medial malleolus fractures 2. Severe osteopenia Postoperative Diagnosis: Same Procedure(s) Performed: 1. Open reduction internal fixation of left bimalleolar ankle fracture (medial and lateral malleolus) 2. Application of short leg splint by physician, left ankle Anesthesia: CHANTE Surgeon: Ang Romero IV fluids (ml): 500 Pathology: none sent Condition: stable Disposition: PACU Indications for Procedure: The patient is a very pleasant 88-year-old female with a medical history significant for severe osteopenia who presented to the ER after sustaining a low-energy fall resulting in a left ankle fracture dislocation. The patient underwent an attempt at reduction by the emergency department physician and postoperative x-rays showed improvement in alignment but continued lateral subluxation of the talus. I was contacted by the emergency department physician in the early afternoon due to concerns about the patient safely discharging home. According to the ER physician the patient had minimal swelling had been nothing by mouth since early in the morning and was relatively healthy and he thought that she could be cleared clinically by internal medicine. My r ecommendation was then to proceed with open reduction internal fixation to facilitate her recovery and discharge to rehab. The patient was admitted under my care and cleared for surgery by internal medicine. I met with the patient and her family preoperatively to discuss treatment. They understand the potential risks and complications of surgery particularly loss of fixation due to her extremely poor bone quality and advanced age. Risks discussed included but are not limited to risks from anesthesia, superficial infection, deep infection, nonunion, malunion, malreduction of the ankle mortise or syndesmosis, damage to local blood vessels or nerves particularly branches of the superficial peroneal nerve, saphenous nerve, and or sural nerve, hardware failure, loss of reduction of the ankle mortise or syndesmosis due to hardware failure, symptomatic hardware, delayed wound healing, wound necrosis, posttraumatic ankle arthritis, stiffness, instability, intra-articular pathology requiring further treatment, need for further surgery, an inability to regain preinjury level of function, dissatisfaction with surgical outcome, DVT, PE, pressure sore, splint complications, and possibly loss of life or limb. The patient understands that while these are the most common complications there are other less common complications possible. They provided their verbal and written consent to go forward with ankle open reduction and internal fixation. All of their questions regarding the procedure and potential complications were answeredThey provided both her verbal and written consent to go forward with surgery. Operative Findings: The patient had extremely poor bone quality with marked osteopenia making fixation extremely difficult. Description of Procedure: The patient was then applied preoperative holding and the correct left leg was marked with my initials. I carefully removed her splint and there was wrinkling of the skin, no significant swelling and no evidence of open wounds. A block was performed by anesthesia. The patient was then brought back to the operating room by anesthesia. She was transferred onto the OR table and given a general anesthetic and preoperative antibiotics. A tourniquet was applied to the proximal aspect of the left leg. A ramp was placed under the left leg to facilitate imaging. The contralateral right leg was secured to the OR table with padding. A bump was placed under the left buttock to internally rotate the leg to neutral. A nonsterile drape was applied. The left leg was then prepped and draped in the standard sterile fashion. Prior to starting surgery timeout was performed identifying the correct patient, operative extremity, and procedure. The patient's leg was then elevated, exsanguinated with an Esmarch bandage, and the tourniquet was inflated to 250 mmHg. Due to the amount of comminution on the fibula fracture and poor bone quality I elected to use a bridge plating technique making a small incision distally over the fibula and proximal to the fracture, but leaving the comminuted fracture unviolated. I began by exposing the medial malleolus to reduce the fracture fragment. Skin incision was made with a scalpel and dissection was carried down to the subcutaneous tissue. The fracture site was found to be highly comminuted with poor bone quality. The apex of the medial fracture was keyed in and held with a K wire. Reduction was verified with fluoroscopy. Attention was then turned to the lateral malleolus. Small incisions were made over the distal aspect of the fibula and the shaft proximal to the fracture. Blunt dissection was carried down to the fibula. I then passed a precontoured distal fibular locking plate from distal to proximal and verified its position with fluoroscopy. The plate was then held to bone using K wires once its position was verified with fluoroscopy. Nonlocking screws were placed proximally and distally after centering the plate on the fibula and verifying the position with fluoroscopy. Locking screws were then placed distally and additional nonlocking screws were placed proximally. Due to the amount of comminution the fracture site was left unviolated again using the plate as a bridge construct. 2 syndesmotic screws were then placed. I then contoured a one third tubular plate over the medial aspect of the distal tibia and medial malleolus. Nonlocking screws were placed proximally and a lag screw was placed carefully across the fracture site generating excellent compression. A screw was placed through the tip of the medial malleolus and the most distal hole of the plate and excellent fixation. Final fluoroscopic images were taken showing adequate reduction of the ankle mortise, acceptable position of the hardware, and no evidence of dye stasis. A manual external rotation stress x-ray showed no widening of the medial clear space or incisura. The wounds were then thoroughly irrigated and closed in layers. A sterile dressing consisting of Betadine soaked Adaptic, 4 x 4, and web roll was applied. The drapes were taken down and a well-padded bulky Villagran splint was placed with the ankle in neutral. The patient was then brought to recovery having tolerated the procedure well. Plan: The patient is to be strictly nonweightbearing on her left leg. She should ice and elevate her left leg. She'll be given aspirin for DVT prophylaxis. Discharge planning and process, she will likely need discharge to rehab.
--- NOTE | 2023-10-18 11:44 | P.PN ---
Subjective Patient has no complaints this morning. Objective - Vital Signs Vital signs: Vital Signs Temp 97.8 F 10/18/23 07:37 Pulse 68 10/18/23 07:37 Resp 16 10/18/23 07:37 BP 148/68 10/18/23 07:37 Pulse Ox 95 10/18/23 07:37 FiO2 Intake & Output 10/17/23 10/18/23 10/18/23 18:59 06:59 18:59 Intake Total 700 Output Total 75 Balance 625 Weight 79.379 kg 79.379 kg Intake: IV 700 Output: Estimated Blood Loss 75 Other: Voiding Method Diaper Diaper External Catheter External Catheter # Voids 2 - Exam The patient is resting comfortably in her bed. She is alert and able to answer questions. A focused exam of the left lower extremity was conducted. On inspection she has a clean and intact bulky Villagran splint. Her toes are warm and well perfused with brisk capillary refill. - Labs CBC & Chem 7: 10/17/23 12:49 10/17/23 12:49 Labs: Abnormal Lab Results - Last 24 Hours (Table) 10/17/23 10/17/23 10/17/23 Range/Units 12:49 12:49 12:49 Lymphocytes # 0.9 L (1.0-4.8) k/uL PT 13.4 H (10.0-12.5) sec INR 1.3 H (<1.2) Chloride 108 H (98-107) mmol/L BUN 22 H (7-17) mg/dL Glucose 125 H (74-99) mg/dL Assessment and Plan Assessment: Operative day #1 status post open reduction internal fixation left ankle this dislocation Plan: Patient should remain strictly nonweightbearing on her left lower extremity. Ice and elevation. 2 doses postoperative antibiotics. DVT prophylaxis with aspirin. Internal medicine for perioperative medical management. Discharge planning and process, the patient will likely need discharge to a [place] [facility] facility or rehab.
[2023-10-18] MEDS: SODIUM CHLORIDE 0.9% 1,000 ML IV SCH ×2 (11:53→20:18)
[2023-10-18] MEDS: METOPROLOL TARTRATE 50 MG TAB PO SCH ×2 (11:54→20:17)
[2023-10-18] MEDS: DOCUSATE 100 MG CAP PO SCH (11:54)
--- NOTE | 2023-10-18 13:45 | P.PN ---
Subjective Progress Note Date: 10/18/23 88-year-old female patient with limited pulmonary fibrosis, had a fall and sustained fractures to her left ankle. No head trauma. No loss of consciousness. She remains hemodynamic is stable. The patient was seen in the emergency department and the patient will need a surgical intervention. The patient is known to me from previous office visits. She has a remote history obstructive sleep apnea and she's not utilizing any form of CPAP therapy. She also has history of breast cancer she has undergone lumpectomy and radiation therapy. She's not complaining of any shortness of breath. She is on room air oxygen. Her chest x-ray shows a endovascular stent grafting a descending thoracic aortic aneurysm and the patient had that surgery done several years back without any complications. No history of any coronary artery disease. No angina. No palpitations. Hemodynamically stable. Cardiac rhythm is sinus. He x-ray of the ankle shows an Zoroastrian deformity of the left ankle and the patient was seen by orthopedic surgery. The white cell count of 8.5. Hemoglobin 13.7. Patient is at 178. Sodiums of 140, BUN is at 22 with a creatinine of 0.7. LFTs are normal. Coagulation profile is also within normal limits. On today's evaluation of 10/18/2023, the patient is doing well. The patient underwent a open reduction internal fixation of the left bimalleolar ankle fracture. The patient was also given a splint. She is nonweightbearing for the time being. The patient's pain Is under adequate control. No respiratory difficulties. Surgery itself was essentially uncomplicated. The patient has Dilaudid for pain control in addition to [place]. She is also on aspirin 81 mg by mouth twice a day. IV fluids in the form of normal saline at rate of 75 mL an hour. She has been provided incentive spirometer. Objective - Vital Signs Vital signs: Vital Signs Temp 97.8 F 10/18/23 07:37 Pulse 68 10/18/23 07:37 Resp 16 10/18/23 07:37 BP 148/68 10/18/23 07:37 Pulse Ox 95 10/18/23 07:37 FiO2 Intake & Output 10/17/23 10/18/23 10/18/23 18:59 06:59 18:59 Intake Total 700 Output Total 75 Balance 625 Weight 79.379 kg 79.379 kg Intake: IV 700 Output: Estimated Blood Loss 75 Other: Voiding Method Diaper Diaper External Catheter External Catheter # Voids 2 - Exam GENERAL: The patient is alert and oriented x3, not in any acute distress. Well developed, well nourished. The patient is currently on room air oxygen HEENT: Pupils are round and equally reacting to light. EOMI. No scleral icterus. No conjunctival pallor. Normocephalic, atraumatic. No pharyngeal erythema. No thyromegaly. CARDIOVASCULAR: S1 and S2 present. No murmurs, rubs, or gallops. PULMONARY: Chest is clear to auscultation, no wheezing or crackles. ABDOMEN: Soft, nontender, nondistended, normoactive bowel sounds. No palpable organomegaly. MUSCULOSKELETAL: No joint swelling or deformity. EXTREMITIES: No cyanosis, clubbing, or pedal edema. , Splint was applied to the left lower extremity and the patient is neurovascularly intact NEUROLOGICAL: Gross neurological examination did not reveal any focal deficits. SKIN: No rashes. - Labs CBC & Chem 7: 10/17/23 12:49 10/17/23 12:49 Labs: Abnormal Lab Results - Last 24 Hours (Table) 10/17/23 10/17/23 10/17/23 Range/Units 12:49 12:49 12:49 Lymphocytes # 0.9 L (1.0-4.8) k/uL PT 13.4 H (10.0-12.5) sec INR 1.3 H (<1.2) Chloride 108 H (98-107) mmol/L BUN 22 H (7-17) mg/dL Glucose 125 H (74-99) mg/dL Assessment and Plan Plan: Bimalleolar left ankle fracture, And the patient has a comminuted fracture of the distal tibia and fibula, the patient is post ORIF of a bimalleolar fracture and the patient is postoperative day #1. Clinically stable. Hemodynamically stable. Pain is under adequate control with a combination of Dilaudid and [place]. Pulmonary fibrosis, mild, no respiratory insufficiency limitation at this point in time. Oxygenation is within normal limits Obstructive sleep apnea, history of, not utilizing any form of CPAP therapy at this point in time. Hypertension Hyperlipidemia History of breast cancer with a previous lumpectomy followed by radiation therapy in 2016 Hypothyroidism Osteoarthritis Thoracic aortic aneurysm post-endovascular stent grafting Chronic back pain and scoliosis Osteoporosis History of diverticulosis Varicose veins involving the lower extremities bilaterally Plan Clinically stable and hemodynamically stable Encourage use of incentive spirometer Oxygenation is adequate Continue aspirin 81 mg by mouth twice a day Normal saline at the rate of 75 mL an hour We'll continue to follow up her postop care.
[2023-10-18 15:23] VITALS: BMI 29.1
--- NOTE | 2023-10-18 15:56 | P.PN ---
Subjective Progress Note Date: 10/18/23 History of Presenting Illness: Patient is a very pleasant 88-year-old female with a past medical history of hypertension, hyperlipidemia, thoracic aortic aneurysm status post repair October [address] Prado at [facility], hypothyroidism, osteoarthritis, breast cancer status post lumpectomy and radiation 2016, and previous diagnosis of obstructive sleep apnea, mild pulmonary fibrosis and mild pulmonary hypertension previously CPAP dependent nightly but states she has not used CPAP in years. She presented to the emergency department today status post trip and fall at home resulting in injury to her left ankle. She denied hitting her head or having any loss of consciousness and denied any dizziness/lightheadedness, chest pain, or palpitations prior to fall. She underwent full evaluation in the emergency department. X-ray left ankle revealed an acute displaced bimalleolar fracture with disassociation of the tibia along with suspicions for a talar dome fracture. Labs completed and reviewed. CBC was unremarkable with WBC count of 8.5, hemoglobin 13.7, and platelet count of 178. BMP showing no significant abnormalities with sodium 140, potassium 4.5, chloride 108, bicarb 25, anion gap of 7, and slightly elevated BUN of 22 with normal creatinine of 0.79 and GFR of 69. Glucose was 125. Liver profile was unremarkable. Chest x-ray showing biba silar atelectasis/scarring and evidence of aortic surgical repair, negative for acute cardiopulmonary process. Patient underwent closed reduction of fracture in the emergency department with repeat x-ray showing comminuted fractures of the distal tibia and fibula with improvement in alignment but persistent distortion of the ankle mortise. Ortho-Glass splint was placed to left lower extremity. Patient was then admitted to orthopedic surgery team under Dr. Romero and we were consulted for preoperative clearance and medical management throughout her hospitalization. Physical exam: Patient seen and fully evaluated at the bedside this morning. She is postoperative day 1 and appears to be doing well. Respirations even, regular, and unlabored on 2 L O2 via nasal cannula with SpO2 of 95%. Patient denies having any headache, lightheadedness, dizziness, chest pain, palpitations, shortness of breath, or any other complaints. She reports that her left foot remains numb and tingly status post surgery. She reports pain is controlled. Upon examination postsurgical splint in place, patient's toes normal coloration for ethnicity appear well perfused and warm to touch with Refill less than 2 seconds. Vital signs reviewed and stable. General: Nontoxic, no distress and appears stated age. Derm: Skin warm and dry, normal coloration for ethnicity. Head: Atraumatic, normocephalic and symmetric. Eyes: EOMs intact, no lid lag, and anicteric sclera Mouth: no lip lesions, mucus membranes moist Cardiovascular: regular rate and rhythm with normal S1S2, no murmur, positive posterior tibial pulses bilaterally, and cap refill < 2 seconds. Lungs: Respirations even, regular, and unlabored on room air. Lungs CTA bilaterally, no rhonchi, no rales, no wheezing, and no accessory muscle usage. Abdominal: soft, nontender to palpation, no guarding, no appreciable organomegaly Ext: No gross muscle atrophy, no edema, no contractures. Movement and sensation intact in all 4 extremities. Left lower extremity with postoperative splint elevated on pillow. Neuro: Speech clear, face symmetrical and CN II-XII grossly intact with no noted focal neuro deficits Psych: Alert and oriented to person, place, time, and situation. Appropriate and pleasant affect. Assessment and Plan of Care: Trimalleolar dislocated fracture, left Status post ORIF of left ankle with repair of dislocated trimalleolar fracture with stabilization of ankle mortise -Management per primary admitting orthopedic surgery team, including DVT prophylaxis, pain management, weightbearing, and PT/OT. -Currently DVT prophylaxis with aspirin 81 mg twice daily. History of obstructive sleep apnea, previously CPAP dependent nightly Mild pulmonary fibrosis Pulmonary hypertension -Patient follows with Dr. Bright -Pt reports she has not used CPAP in many years. -Chest x-ray revealed bibasilar atelectasis/scarring and evidence of aortic surgical repair, negative for acute cardiopulmonary process. -Supervisor [employer] consulted and provided preoperative clearance. Hypertension Hyperlipidemia History of thoracic aortic aneurysm status post repair Continue daily medication regimen with aspirin 81 mg losartan 25 mg nightly, me toprolol 50 mg twice daily, and rosuvastatin 40 mg nightly. Hypothyroidism Continue daily medication regimen with levothyroxine 25 g daily. History of breast cancer status post lumpectomy and radiation in 2016 now in remission Hold Arimidex, may resume postoperatively once cleared by primary admitting orthopedic surgery team to resume antiestrogen/oncologic medication. Data reviewed: Vital signs reviewed and stable. Blood pressure 148/68, heart rate 68, respiratory rate 16, temp 97.8F, SpO2 of 95% on 2 L. Thank you for allowing us to participate in the care of this pleasant patient. Do not hesitate to contact us with questions. Someone can be reached from the [facility] hospitalist group all hours of the day at [phone] or via perfect serve. Patient was seen independently by Nurse Practitioner. This document was prepared using [employer] dictation software. Please allow for errors in master control engineer while rare they do occur. Dimitri Cottrell NP rendered care for this patient independently, reviewed the findings and plan as documented in the note above. I did not physically speak with or examine the patient on this date. Objective - Vital Signs Vital signs: Vital Signs Temp 97.8 F 10/18/23 07:37 Pulse 68 10/18/23 07:37 Resp 16 10/18/23 07:37 BP 148/68 10/18/23 07:37 Pulse Ox 95 10/18/23 07:37 FiO2 Intake & Output 10/17/23 10/18/23 10/18/23 18:59 06:59 18:59 Intake Total 700 Output Total 75 Balance 625 Weight 79.379 kg 79.379 kg Intake: IV 700 Output: Estimated Blood Loss 75 Other: Voiding Method Diaper External Catheter # Voids 2 - Labs CBC & Chem 7: 10/17/23 12:49 10/17/23 12:49 Labs: Abnormal Lab Results - Last 24 Hours (Table) 10/17/23 10/17/23 10/17/23 Range/Units 12:49 12:49 12:49 Lymphocytes # 0.9 L (1.0-4.8) k/uL PT 13.4 H (10.0-12.5) sec INR 1.3 H (<1.2) Chloride 108 H (98-107) mmol/L BUN 22 H (7-17) mg/dL Glucose 125 H (74-99) mg/dL
[2023-10-18] MEDS: HYDROcodone/APAP 5-325MG 1 EACH TAB PO PRN (16:26)
[2023-10-18] MEDS: LOSARTAN 25 MG TAB PO SCH (20:17)
[2023-10-18] MEDS: ATORVASTATIN 80 MG TAB PO SCH (20:17)
[2023-10-18] MEDS: HYDROmorphone 0.5 MG/0.5 ML SYRINGE IVP PRN (20:18)
[2023-10-19] MEDS: HYDROmorphone 0.5 MG/0.5 ML SYRINGE IVP PRN (02:05)
[2023-10-19] MEDS: LEVOTHYROXINE 25 MCG TAB PO SCH (08:06)
[2023-10-19] MEDS: ASPIRIN 81 MG PO SCH ×2 (08:06→20:39)
[2023-10-19] MEDS: SODIUM CHLORIDE 0.9% 1,000 ML IV SCH ×3 (08:08→21:50)
[2023-10-19] MEDS: HYDROcodone/APAP 5-325MG 1 EACH TAB PO PRN ×3 (08:13→20:39)
[2023-10-19] MEDS: METOPROLOL TARTRATE 50 MG TAB PO SCH ×2 (11:04→20:39)
[2023-10-19] MEDS: DOCUSATE 100 MG CAP PO SCH (11:04)
[2023-10-19 11:05] LABS: HCT 36.9 % (37.2-46.3); HGB 11.5 g/dL (12.0-15.0); MCH 29.3 pg (27.0-32.0); MCHC 31.2 g/dL (32.0-37.0); MCV 94.1 FL (80.0-97.0); NRBC Per 100 WBC 0 X 10*3/uL (0.00-0.01); Platelet Count 155 X 10*3/uL (140-440); RBC 3.92 X 10*6/uL (4.10-5.20); RDW 15.1 % (11.5-14.5); WBC 9.06 X 10*3/uL (4.50-10.00)
[2023-10-19 11:18] LABS: ALT 9 U/L (8-44); AST 18 U/L (13-35); Albumin 3.5 g/dL (3.8-4.9); Albumin/Globulin Ratio 1.52 Ratio (1.60-3.17); Alkaline Phosphatase 49 U/L (41-126); BUN/Creat Ratio 19.38 Ratio (12.00-20.00); Blood Urea Nitrogen 15.5 mg/dL (9.0-27.0); Calcium 8.8 mg/dL (8.7-10.3); Carbon Dioxide 23.3 mmol/L (21.6-31.8); Chloride 108 mmol/L (96-109); Globulin 2.3 g/dL (1.6-3.3); Glucose 106 mg/dL (70-110); Magnesium 2.1 mg/dL (1.5-2.4); Potassium 3.7 mmol/L (3.5-5.5); Sodium 140 mmol/L (135-145); Total Bilirubin 0.5 mg/dL (0.3-1.2); Total Protein 5.8 g/dL (6.2-8.2)
--- NOTE | 2023-10-19 14:49 | P.PN ---
Subjective Progress Note Date: 10/19/23 88-year-old female with a past medical history of hypertension, hyperlipidemia, thoracic aortic aneurysm status post repair October [address] Prado at [facility], hypothyroidism, osteoarthritis, breast cancer status post lumpectomy and radiation 2015, and previous diagnosis of obstructive sleep apnea, mild pulmonary fibrosis and mild pulmonary hypertension previously CPAP dependent nightly but states she has not used CPAP in years. She presented to the emergency department today status post trip and fall at home resulting in injury to her left ankle. She underwent full evaluation in the emergency department. X-ray left ankle revealed an acute displaced bimalleolar fracture with disassociation of the tibia along with suspicions for a talar dome fracture. CBC was unremarkable. BMP chloride 108, BUN of 22, gucose was 125. Liver profile was unremarkable. Chest x-ray showing bibasilar atelectasis/scarring and evidence of aortic surgical repair, negative for acute cardiopulmonary process. Patient underwent closed reduction of fracture in the emergency department with repeat x-ray showing comminuted fractures of the distal tibia and fibula with improvement in alignment but persistent distortion of the ankle mortise. Ortho- Glass splint was placed to left lower extremity. Patient was then admitted to orthopedic surgery team under Dr. Romero and we were consulted for preoperat peggy clearance and medical management throughout her hospitalization. 10/19 Patient was seen and examined. She reports no complaints. She is NWB LLE. Plans for [place]. CBC Hg 11.5 Hct 36.9. CMP alb 3.5. Physical examination: Vital signs reviewed General: non toxic, no distress, appears at stated age, normal weight Derm: no unusual rashes/lesions, warm Head: atraumatic, normocephalic, symmetric Eyes: EOMI, no lid lag, anicteric sclera ENT: Nose and ears atraumatic Neck: No cervical lymphadenopathy, trachea midline, supple Cardiovascular: S1S2 reg, no murmur Lungs: CTA bilateral, no rhonchi, no rales, no accessory muscle use Ext: no gross muscle atrophy, no contractures, Neuro: no gross focal neuro deficits Psych: Alert, oriented, appropriate affect Based on my assessment of this patient, this patient meets a moderate complexity level of care. Patient has a chronic diagnosis of HTN, HLD, thoracic aortic aneurysm, hypothroidism, breast CA, JENNIFFER. HTN: Losartan 25 mg PO QHS. Metoprolol 50 mg PO BID. HLD: Liptor 80 mg PO QHS. Thoracic aortic aneurysm: Follow up with physician at [facility]. Hypothroidism: Synthroid 25 mcg PO QD. Breast CA: Satus post lumpectomy and radiation in 2016 now in remission. Outpatient follow up. JENNIFFER CODE STATUS: FULL CODE DVT Prophylaxis: ASA GI Prophylaxis: Designated medical POA if patient is not able to make medical decisions for themselves: I have reviewed the following automotive consultant notes: Ortho note. Pulm note. I have reviewed the results of the following tests: CBC, CMP I have ordered the following tests: I have discussed the care of this patient with the following independent historian: I have independently interpreted the following test below: I have discussed the management of this patient with the following physician: Objective - Vital Signs Vital signs: Vital Signs Temp 97.8 F 10/19/23 11:00 Pulse 76 10/19/23 11:00 Resp 18 10/19/23 11:00 BP 123/71 10/19/23 11:00 Pulse Ox 90 L 10/19/23 11:00 FiO2 Intake & Output 10/18/23 10/19/23 10/19/23 18:59 06:59 18:59 Intake Total 1370 240 Output Total 350 Balance 1370 -350 240 Weight 79.379 kg Intake: Intake, IV Titration 1250 Amount Sodium Chloride 0.9% 1, 1200 000 ml @ 100 mls/hr IV . Q10H JOSE RAMON Rx#:[id number] ceFAZolin 2 gm In Sodium 50 Chloride 0.9% 50 ml @ 100 mls/hr IVPB Q8HR JOSE RAMON Rx# :[id number] Oral 120 240 Output: Urine 350 Other: Voiding Method Diaper Bedpan Bedpan External Catheter Diaper External Catheter # Voids 1 1 - Labs CBC & Chem 7: 10/19/23 07:22 10/19/23 07:22 Labs: Abnormal Lab Results - Last 24 Hours (Table) 10/19/23 10/19/23 Range/Units 07:22 07:22 RBC 3.92 L (4.10-5.20) X 10*6/uL Hgb 11.5 L (12.0-15.0) g/dL Hct 36.9 L (37.2-46.3) % MCHC 31.2 L (32.0-37.0) g/dL RDW 15.1 H (11.5-14.5) % Total Protein 5.8 L (6.2-8.2) g/dL Albumin 3.5 L (3.8-4.9) g/dL Albumin/Globulin Ratio 1.52 L (1.60-3.17) Ratio
--- NOTE | 2023-10-19 15:11 | P.PN ---
Subjective Progress Note Date: 10/19/23 88-year-old female patient with limited pulmonary fibrosis, had a fall and sustained fractures to her left ankle. No head trauma. No loss of consciousness. She remains hemodynamic is stable. The patient was seen in the emergency department and the patient will need a surgical intervention. The patient is known to me from previous office visits. She has a remote history obstructive sleep apnea and she's not utilizing any form of CPAP therapy. She also has history of breast cancer she has undergone lumpectomy and radiation therapy. She's not complaining of any shortness of breath. She is on room air oxygen. Her chest x-ray shows a endovascular stent grafting a descending thoracic aortic aneurysm and the patient had that surgery done several years back without any complications. No history of any coronary artery disease. No angina. No palpitations. Hemodynamically stable. Cardiac rhythm is sinus. He x-ray of the ankle shows an Evangelical deformity of the left ankle and the patient was seen by orthopedic surgery. The white cell count of 8.5. Hemoglobin 13.7. Patient is at 178. Sodiums of 140, BUN is at 22 with a creatinine of 0.7. LFTs are normal. Coagulation profile is also within normal limits. On today's evaluation of 10/18/2023, the patient is doing well. The patient underwent a open reduction internal fixation of the left bimalleolar ankle fracture. The patient was also given a splint. She is nonweightbearing for the time being. The patient's pain Is under adequate control. No respiratory difficulties. Surgery itself was essentially uncomplicated. The patient has Dilaudid for pain control in addition to Gustine. She is also on aspirin 81 mg by mouth twice a day. IV fluids in the form of normal saline at rate of 75 mL an hour. She has been provided incentive spirometer. On 10/19/2023, no new complaints other than some pain at the surgical area in her left lower extremity. She is able to urinate. No significant constipation. Blood work is all stable. No respiratory difficulties. The medications remain unchanged. The patient remains on aspirin 81 mg by mouth twice a day. The patient's blood work shows a hemoglobin of 11.5 which is stable. Sodium is at 140, creatinine is at 0.8. LFTs are normal. Objective - Vital Signs Vital signs: Vital Signs Temp 98.3 F 10/19/23 07:14 Pulse 80 10/19/23 07:14 Resp 16 10/19/23 07:14 BP 152/81 10/19/23 07:14 Pulse Ox 95 10/19/23 07:14 FiO2 Intake & Output 10/18/23 10/19/23 10/19/23 18:59 06:59 18:59 Intake Total 1370 Output Total 350 Balance 1370 -350 Weight 79.379 kg Intake: Intake, IV Titration 1250 Amount Sodium Chloride 0.9% 1, 1200 000 ml @ 100 mls/hr IV . Q10H JOSE RAMON Rx#:[id number] ceFAZolin 2 gm In Sodium 50 Chloride 0.9% 50 ml @ 100 mls/hr IVPB Q8HR JOSE RAMON Rx# :[id number] Oral 120 Output: Urine 350 Other: Voiding Method Diaper Bedpan Bedpan External Catheter Diaper External Catheter # Voids 1 - Exam GENERAL: The patient is alert and oriented x3, not in any acute distress. Well developed, well nourished. The patient is currently on room air oxygen HEENT: Pupils are round and equally reacting to light. EOMI. No scleral icterus. No conjunctival pallor. Normocephalic, atraumatic. No pharyngeal erythema. No thyromegaly. CARDIOVASCULAR: S1 and S2 present. No murmurs, rubs, or gallops. PULMONARY: Chest is clear to auscultation, no wheezing or crackles. ABDOMEN: Soft, nontender, nondistended, normoactive bowel sounds. No palpable organomegaly. MUSCULOSKELETAL: No joint swelling or deformity. EXTREMITIES: No cyanosis, clubbing, or pedal edema. , Splint was applied to the left lower extremity and the patient is neurovascularly intact NEUROLOGICAL: Gross neurological examination did not reveal any focal deficits. SKIN: No rashes. - Labs CBC & Chem 7: 10/19/23 07:22 10/19/23 07:22 Assessment and Plan Plan: Bimalleolar left ankle fracture, And the patient has a comminuted fracture of the distal tibia and fibula, the patient is post ORIF of a bimalleolar fracture and the patient is postoperative day #2. Clinically stable. Hemodynamically stable. Pain is under adequate control with a combination of Dilaudid and Gustine. She has no weightbearing and she is moving around without help of a walker and assistance with physical therapy and the nursing staff. Pulmonary fibrosis, mild, no respiratory insufficiency limitation at this point in time. Oxygenation is within normal limits Obstructive sleep apnea, history of, not utilizing any form of CPAP therapy at this point in time. 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 Clinically stable and hemodynamically stable Encourage use of incentive spirometer Oxygenation is adequate Continue aspirin 81 mg by mouth twice a day Normal saline at the rate of 100 mL an hour We'll continue to follow up her postop care. She will need rehabilitation at time of discharge.
[2023-10-19 17:59] VITALS: RESP 16
[2023-10-19] MEDS: ATORVASTATIN 80 MG TAB PO SCH (20:39)
[2023-10-19] MEDS: LOSARTAN 25 MG TAB PO SCH (20:39)
[2023-10-20] MEDS: HYDROcodone/APAP 5-325MG 1 EACH TAB PO PRN ×2 (05:26→13:38)
[2023-10-20] MEDS: ASPIRIN 81 MG PO SCH (07:58)
[2023-10-20] MEDS: LEVOTHYROXINE 25 MCG TAB PO SCH (07:58)
--- NOTE | 2023-10-20 08:35 | P.PN ---
Subjective Doing well. Denies severe pain in the ankle. Objective - Vital Signs Vital signs: Vital Signs Temp 98.1 F 10/20/23 07:06 Pulse 80 10/20/23 07:06 Resp 16 10/20/23 07:06 BP 126/70 10/20/23 07:06 Pulse Ox 95 10/20/23 07:06 FiO2 Intake & Output 10/19/23 10/20/23 10/20/23 18:59 06:59 18:59 Intake Total 340 950 Balance 340 950 Intake: Intake, IV Titration 100 Amount Sodium Chloride 0.9% 1, 100 000 ml @ 100 mls/hr IV . Q10H JOSE RAMON Rx#:[id number] Oral 240 950 Other: Voiding Method Bedpan Bedpan # Voids 1 4 - Exam Resting comfortably in bed, alert and answers questions Left LE: splint c/d/i. Toes WWP with brisk CR. SILT in the toes. Moves the toes up/down. - Labs CBC & Chem 7: 10/19/23 07:22 10/19/23 07:22 Labs: Abnormal Lab Results - Last 24 Hours (Table) 10/19/23 10/19/23 Range/Units 07:22 07:22 RBC 3.92 L (4.10-5.20) X 10*6/uL Hgb 11.5 L (12.0-15.0) g/dL Hct 36.9 L (37.2-46.3) % MCHC 31.2 L (32.0-37.0) g/dL RDW 15.1 H (11.5-14.5) % Total Protein 5.8 L (6.2-8.2) g/dL Albumin 3.5 L (3.8-4.9) g/dL Albumin/Globulin Ratio 1.52 L (1.60-3.17) Ratio Assessment and Plan Assessment: POD 2 s/p ORIF left ankle Doing well Plan: The patient is doing well. Continue strict NWB left LE, ice and elevation. Awaiting discharge to [facility] when medically stable and approved.
--- NOTE | 2023-10-20 09:41 | P.PN ---
Subjective Progress Note Date: 10/20/23 88-year-old female with a past medical history of hypertension, hyperlipidemia, thoracic aortic aneurysm status post repair October [address] Prado at [facility], hypothyroidism, osteoarthritis, breast cancer status post lumpectomy and radiation 2015, and previous diagnosis of obstructive sleep apnea, mild pulmonary fibrosis and mild pulmonary hypertension previously CPAP dependent nightly but states she has not used CPAP in years. She presented to the emergency department today status post trip and fall at home resulting in injury to her left ankle. She underwent full evaluation in the emergency department. X-ray left ankle revealed an acute displaced bimalleolar fracture with disassociation of the tibia along with suspicions for a talar dome fracture. CBC was unremarkable. BMP chloride 108, BUN of 22, gucose was 125. Liver profile was unremarkable. Chest x-ray showing bibasilar atelectasis/scarring and evidence of aortic surgical repair, negative for acute cardiopulmonary process. Patient underwent closed reduction of fracture in the emergency department with repeat x-ray showing comminuted fractures of the distal tibia and fibula with improvement in alignment but persistent distortion of the ankle mortise. Ortho- Glass splint was placed to left lower extremity. Patient was then admitted to orthopedic surgery team under Dr. Romero and we were consulted for preoperat peggy clearance and medical management throughout her hospitalization. 10/19 Patient was seen and examined. She reports no complaints. She is NWB LLE. Plans for [place]. CBC Hg 11.5 Hct 36.9. CMP alb 3.5. 10/20 Patient was seen and examined. Feels exhausted. Pain well controlled. [facility]. General: non toxic, no distress, appears at stated age, normal weight Derm: no unusual rashes/lesions, warm Head: atraumatic, normocephalic, symmetric Eyes: EOMI, no lid lag, anicteric sclera ENT: Nose and ears atraumatic Neck: trachea midline, supple Cardiovascular: S1S2 reg, no murmur Lungs: CTA bilateral, no rhonchi, no rales, no accessory muscle use Ext: no gross muscle atrophy, no contractures, Neuro: no gross focal neuro deficits Psych: Alert, oriented, appropriate affect Based on my assessment of this patient, this patient meets a moderate complexity level of care. Patient has a chronic diagnosis of HTN, HLD, thoracic aortic aneurysm, hypothroidism, breast CA, JENNIFFER. HTN: Losartan 25 mg PO QHS. Metoprolol 50 mg PO BID. HLD: Liptor 80 mg PO QHS. Thoracic aortic aneurysm: Follow up with physician at [facility]. Hypothroidism: Synthroid 25 mcg PO QD. Breast CA: Satus post lumpectomy and radiation in 2016 now in remission. Outpatient follow up. JENNIFFER Patient is medically stable for discharge. CODE STATUS: FULL CODE DVT Prophylaxis: ASA GI Prophylaxis: Designated medical POA if patient is not able to make medical decisions for themselves: I have reviewed the following it infrastructure consultant notes: Ortho note. I have reviewed the results of the following tests: I have ordered the following tests: I have discussed the care of this patient with the following independent historian: I have independently interpreted the following test below: I have discussed the management of this patient with the following physician: Objective - Vital Signs Vital signs: Vital Signs Temp 98.1 F 10/20/23 07:06 Pulse 80 10/20/23 07:06 Resp 16 10/20/23 07:06 BP 126/70 10/20/23 07:06 Pulse Ox 95 10/20/23 07:06 FiO2 Intake & Output 10/19/23 10/20/23 10/20/23 18:59 06:59 18:59 Intake Total 340 950 Balance 340 950 Intake: Intake, IV Titration 100 Amount Sodium Chloride 0.9% 1, 100 000 ml @ 100 mls/hr IV . Q10H JOSE RAMON Rx#:[id number] Oral 240 950 Other: Voiding Method Bedpan Bedpan # Voids 1 4 1 - Labs CBC & Chem 7: 10/19/23 07:22 10/19/23 07:22 Labs: Abnormal Lab Results - Last 24 Hours (Table) 10/19/23 10/19/23 Range/Units 07:22 07:22 RBC 3.92 L (4.10-5.20) X 10*6/uL Hgb 11.5 L (12.0-15.0) g/dL Hct 36.9 L (37.2-46.3) % MCHC 31.2 L (32.0-37.0) g/dL RDW 15.1 H (11.5-14.5) % Total Protein 5.8 L (6.2-8.2) g/dL Albumin 3.5 L (3.8-4.9) g/dL Albumin/Globulin Ratio 1.52 L (1.60-3.17) Ratio
--- NOTE | 2023-10-20 10:02 | P.DS ---
Providers Date of admission: 10/17/23 14:18 Attending physician: Ang Romero Consults: 10/17/23 14:17 Consult Physician Urgent Consulting Provider: Toro Pearson Consult Reason/Comments: Preop clearance Do you want consulting provider notified?: Already Contacted 10/17/23 15:40 Consult Physician Routine Consulting Provider: Dutch Powell Consult Reason/Comments: preoperative clearance and post op f/u hx of JENNIFFER Do you want consulting provider notified?: Already Contacted Primary care physician: [facility] Course: Patient was admitted from the ED with an ankle fracture dislocation this past Tuesday. She was taken to the OR for an ORIF. She did well in surgery. After surgery she had 2 doses of ancef. Internal medicine managed medical issues. She worked with PT. Arrangements were made to discharge to [facility]. Patient Condition at Discharge: Stable Plan - Discharge Summary Discharge Rx Participant: No New Discharge Prescriptions: New Aspirin 81 mg PO BID tab HYDROcodone/APAP 5-325MG [[place] 5-325] 1 each PO Q6HR PRN #12 tab PRN Reason: Pain Scale 1 To 5 Acetaminophen Tab [Tylenol] 650 mg PO Q6HR PRN tab PRN Reason: Mild Pain Or Fever > 100.5 Continue Levothyroxine Sodium [Synthroid] 25 mcg PO DAILY Anastrozole [Arimidex] 1 mg PO DAILY@1200 Docusate [Colace] 100 mg PO DAILY@1200 Losartan Potassium [Cozaar] 25 mg PO HS Metoprolol Tartrate [Lopressor] 50 mg PO BID@1200,2100 Rosuvastatin Calcium [Crestor] 40 mg PO HS Discontinued Aspirin EC [Ecotrin Low Dose] 81 mg PO DAILY@1200 Discharge Medication List Levothyroxine Sodium [Synthroid] 25 mcg PO DAILY 03/07/14 [History] Anastrozole [Arimidex] 1 mg PO DAILY@1200 10/16/16 [History] Docusate [Colace] 100 mg PO DAILY@1200 09/02/19 [History] Losartan Potassium [Cozaar] 25 mg PO HS 09/02/19 [History] Metoprolol Tartrate [Lopressor] 50 mg PO BID@1200,2100 09/02/19 [History] Rosuvastatin Calcium [Crestor] 40 mg PO HS 10/17/23 [History] Acetaminophen Tab [Tylenol] 650 mg PO Q6HR PRN tab 10/20/23 [Rx] Aspirin 81 mg PO BID tab 10/20/23 [Rx] HYDROcodone/APAP 5-325MG [[place] 5-325] 1 each PO Q6HR PRN #12 tab 10/20/23 [Rx] Follow up Appointment(s)/Referral(s): Carolyn Bright MD [Primary Care Provider] - 1-2 days Activity/Diet/Wound Care/Special Instructions: 1. Strict non-weight bearing on your left leg 2. Ice and elevate your left leg to elp with swelling 3. Take medications as prescribed 4. Use a walker, crutches or wheel chair to ambulate 5. Follow-up with orthopaedics 2 weeks after surgery Discharge Disposition: TRANSFER TO SNF/ECF
[2023-10-20] MEDS: DOCUSATE 100 MG CAP PO SCH (11:21)
[2023-10-20] MEDS: METOPROLOL TARTRATE 50 MG TAB PO SCH (11:21)
[2023-10-20] MEDS: SODIUM CHLORIDE 0.9% 1,000 ML IV SCH (11:22)
[2023-10-20 12:39] VITALS: BP 125/75; PULSE 104; TEMP 98.6
== END 2023-10-20 15:37 | DRG 493 ==
LOC: EC 11:57 → 4SSUR 14:18 → 5NMEDONC 17:27
PROVIDERS: ADMIT Orthopaedic Surgery; ATTEND Orthopaedic Surgery
PROC: 0QSH04Z Reposition Left Tibia with Internal Fixation Device, Open Approach (ICD-10-PCS; principal; 2023-10-17 17:20)
PROC: 0QSK04Z Reposition Left Fibula with Internal Fixation Device, Open Approach (ICD-10-PCS; principal; 2023-10-17 17:20)
DX: S82.842A Displaced bimalleolar fracture of left lower leg, initial encounter for closed fracture (principal); J98.11 Atelectasis; I27.20 Pulmonary hypertension, unspecified; C50.912 Malignant neoplasm of unspecified site of left female breast; J84.10 Pulmonary fibrosis, unspecified; I71.23 Aneurysm of the descending thoracic aorta, without rupture; F32.A Depression, unspecified; F41.9 Anxiety disorder, unspecified; E03.9 Hypothyroidism, unspecified; E78.5 Hyperlipidemia, unspecified; G47.33 Obstructive sleep apnea (adult) (pediatric); I10 Essential (primary) hypertension; M19.90 Unspecified osteoarthritis, unspecified site; H91.93 Unspecified hearing loss, bilateral; I83.90 Asymptomatic varicose veins of unspecified lower extremity; K21.9 Gastro-esophageal reflux disease without esophagitis; G89.29 Other chronic pain; M41.9 Scoliosis, unspecified; M54.50 Low back pain, unspecified; M81.0 Age-related osteoporosis without current pathological fracture; I44.0 Atrioventricular block, first degree; K57.90 Diverticulosis of intestine, part unspecified, without perforation or abscess without bleeding; Z79.811 Long term (current) use of aromatase inhibitors; Z79.82 Long term (current) use of aspirin; Z79.890 Hormone replacement therapy; Z79.899 Other long term (current) drug therapy; Z95.828 Presence of other vascular implants and grafts; Z87.440 Personal history of urinary (tract) infections; Z85.828 Personal history of other malignant neoplasm of skin; Z92.3 Personal history of irradiation; W01.0XXA Fall on same level from slipping, tripping and stumbling without subsequent striking against object, initial encounter; Y92.039 Unspecified place in apartment as the place of occurrence of the external cause; Z88.6 Allergy status to analgesic agent; Z88.5 Allergy status to narcotic agent; Z88.8 Allergy status to other drugs, medicaments and biological substances
CPT/HCPCS: 27752; 36415; 64445; 64447; 71045; 80053; 83735; 85025; 85027; 85610; 85730; 93005; 96361; 96374; 96375; 99285

== ENCOUNTER 2025-03-21 15:44 | Emergency (ER) | payer MEDICARE ==
[2025-03-21 15:52] VITALS: RESP 18
[2025-03-21] MEDS: ACETAMINOPHEN TAB 500 MG TAB PO STA (16:27)
--- NOTE | 2025-03-21 17:33 | CT ---
EXAMINATION TYPE: CT thoracic spine wo con CT DLP: 2197.4 mGycm, Automated exposure control for dose reduction was used. DATE OF EXAM: 03/21/2025 5:18 PM COMPARISON: Chest radiograph 09/02/2019, CTA thoracoabdominal pelvis aorta 09/14/2018. CLINICAL INDICATION:Female, 89 years old with history of fall, pain; PHH, , pain TECHNIQUE: Axial images of the thoracic spine were obtained without contrast. Coronal and sagittal re formats were performed. FINDINGS: The thoracic vertebral bodies have preserved heights and alignment. Chronic superior endpl ate compression deformity of the L2 vertebral body with approximately 20% height loss. Posterior disc osteophyte complex at T5-T6 redemonstrated. Resultant mild central canal stenosis. The remaining int ervertebral discs and osseous structures have normal appearance. I do not see any evidence of extradural defects nor significant spinal canal narrowing at any other t horacic vertebral body level. Postsurgical changes from thoracic aortic stent graft extending from the origin of the left subclavia n artery to just above the aortic hiatus. 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 The descending thoracic aorta measures up to 4.5 cm. Cholelithiasis. Multiple s imple appearing bilateral renal cysts. No follow-up recommended. Small hiatal hernia. Calcification g ranulomas within the spleen. Dense mitral annulus calcifications. Mild cardiomegaly. Small aortic timothy vular calcifications. Mild coronary arterial calcifications. Similar subcentimeter hypodensity within the posterior right hepatic lobe which is too small to characterize but likely is benign due to stab ility. Left subcoracoid bursal distention. IMPRESSION: 1. No acute thoracic spinal fracture. 2. Chronic superior endplate compression deformity L2 vertebral body with approximately 20% height l oss. [facility], , 03/21/2025 5:30 PM
--- NOTE | 2025-03-21 17:41 | CT ---
EXAMINATION TYPE: CT brain cspine wo con CT DLP: 2197.4 mGycm, Automated exposure control for dose reduction was used. DATE OF EXAM: 03/21/2025 5:18 PM COMPARISON: CT brain C-spine 01/26/2019. CLINICAL INDICATION:Female, 89 years old with history of fall, pain; , pain TECHNIQUE: Brain: Multiple axial CT images of the brain were obtained without IV contrast. Cspine: Axial CT images from the skull base to the inferior aspect of T2 we obtained without intraven ous contrast. Coronal and sagittal reformatted images were also reviewed. FINDINGS: Brain: Extra-axial spaces: No abnormal extra-axial fluid collections. Ventricular system: Within normal limits Cerebral parenchyma: Cerebral atrophy. No acute intraparenchymal hemorrhage or mass effect. The albert -white junction is well differentiated. Remote lacunar injury within the left insula. Scattered hypoa ttenuating areas are seen within the white matter. Nonspecific bilateral basal ganglia calcification s. Cerebellum: Unremarkable. Mass effect: No evidence of midline shift. Intracranial vasculature: Atherosclerotic calcifications of the intracranial vessels. Soft tissues: Normal. Calvarium/osseous structures: No depressed skull fracture. Paranasal sinuses and mastoid air cells: Clear. Visualized orbits: Senile calcific scleral plaques are present. Bilateral aphakia. Cervical spine: Fracture: None. Osseous structures: Multilevel degenerative disc disease changes with endplate spurring and disc oste ophyte complex's. Multilevel facet arthropathy. Advanced degenerative changes of the C1-C2 articulati on. Degenerative changes of the bilateral TMJ joints. Vertebral alignment: Degenerative grade 1 anterolisthesis of C3 on C4. Spinal canal/Neural Foramina: Disc osteophyte complexes at C4-C5 and C6-C7 with at least mild spinal canal stenosis. Facet joint uncovertebral joint arthropathy scattered throughout the cervical spine w ith varying degrees of neural foraminal stenosis. Neck soft tissues: Prevertebral soft tissues are within normal limits. Other: The airway is patent. The lung apices are clear. Partial visualization of thoracic aortic sten t graft. Bilateral carotid bulb calcifications. Retropharyngeal course of the right internal carotid artery. IMPRESSION: 1. No acute intracranial process. 2. Remote lacunar injury along with nonspecific white matter changes likely secondary to chronic micr oangiopathy. 3. No evidence of cervical spine fracture. 4. Mild to moderate multilevel degenerative disc disease and facet arthropathy. [facility], , 03/21/2025 5:39 PM
--- NOTE | 2025-03-21 18:06 | XR ---
EXAMINATION TYPE: XR elbow limited RT DATE OF EXAM: 03/21/2025 6:01 PM INDICATION: Patient age:Female; 89 years old; Reason for study: pain; PHH. pain COMPARISON: Right humerus radiograph 07/12/2013 TECHNIQUE: The right elbow was examined in AP and lateral projections. FINDINGS: No evidence of any acute osseous pathology, joint dislocation, or soft tissue swelling is n oted. No evidence of joint effusion is present. IMPRESSION: No evidence of acute fracture. [facility], , 03/21/2025 6:04 PM
--- NOTE | 2025-03-21 18:08 | XR ---
EXAMINATION TYPE: XR wrist limited LT DATE OF EXAM: 03/21/2025 6:03 PM INDICATION: Patient age:Female; 89 years old; Reason for study: fall, pain; PHH. pain COMPARISON: None TECHNIQUE: Left wrist was evaluated in PA and lateral projections. FINDINGS: Diffuse bone demineralization which limits evaluation. No acute osseous pathology, joint di slocation, or joint effusion. There is some joint space narrowing of the radiocarpal joint. Degenerat peggy changes with joint space narrowing, sclerosis and osteophyte formation involving the first CMC leslie int. Mild soft tissue swelling of the wrist. IMPRESSION: 1. No acute osseous pathology. 2. Degenerative changes of the wrist and first CMC joint. 3. Soft tissue swelling of the wrist. [facility], , 03/21/2025 6:06 PM
--- NOTE | 2025-03-21 18:09 | XR ---
EXAMINATION TYPE: XR pelvis AP view DATE OF EXAM: 03/21/2025 6:05 PM INDICATION: Patient age:Female; 89 years old; Reason for study: fall, pain; PHH. pain COMPARISON: None TECHNIQUE: The pelvis was examined in a single projection. FINDINGS: There is no evidence of fracture or dislocation. There is no soft tissue abnormality. No a bnormal calcifications are present. Multilevel degenerative changes of the lower spine. Degenerative changes of the pubic symphysis. Mild osteoarthritic changes of both hips. IMPRESSION: No acute osseous pathology. [facility], , 03/21/2025 6:07 PM
--- NOTE | 2025-03-21 18:11 | XR ---
EXAMINATION TYPE: XR chest 1V DATE OF EXAM: 03/21/2025 6:06 PM COMPARISON: Chest radiographs from 10/17/2023 TECHNIQUE: XR chest 1V Portable AP radiograph of the chest. CLINICAL INDICATION:Female, 89 years old with history of fall, pain; FINDINGS: Lungs/Pleura: There is no evidence of pleural effusion, focal consolidation, or pneumothorax. Low kaylie ng volumes. Pulmonary vascularity: Unremarkable. Heart/mediastinum: Cardiomediastinal silhouette is enlarged and stable. Redemonstration of ureteral repair surgery. Musculoskeletal: No acute osseous pathology. Bilateral shoulder arthroplasty changes. IMPRESSION: Low lung volumes without radiographic evidence for acute traumatic process. [facility], , 03/21/2025 6:08 PM
--- NOTE | 2025-03-21 18:12 | XR ---
EXAMINATION TYPE: XR knee limited LT DATE OF EXAM: 03/21/2025 6:05 PM INDICATION: Patient age:Female; 89 years old; Reason for study: fall, pain; PHH. pain COMPARISON: Left knee radiograph 07/03/2015 TECHNIQUE: The Left knee(s) was examined in AP and lateral projections. FINDINGS: Diffuse bone demineralization. No evidence of any acute osseous pathology, soft tissue swe lling, or joint effusion is noted. Tricompartmental osteophyte formation involving the femoral condyl es, tibial plateau and patella. Mild joint space narrowing. IMPRESSION: 1. No acute osseous pathology. 2. Moderate tricompartmental osteoarthritic changes. [facility], , 03/21/2025 6:10 PM
--- NOTE | 2025-03-21 18:53 | ED ---
General Adult HPI - General Chief complaint: Fall Stated complaint: fall Time Seen by Provider: 03/21/25 16:18 Source: patient, EMS, RN notes reviewed, old records reviewed Mode of arrival: EMS - History of Present Illness Initial comments: Patient is a 89-year-old female presents emergency department after a mechanical fall. Was walking with her walker, and stepped strangely losing her balance fell onto her right side. She struck the back of her head on the wall and landed on her bottom. Endorses some left knee pain, left wrist pain, right elbow pain as well. Was not ambulatory afterwards. Walks with a walker at baseline. Is in assisted living. Is complaining of some upper spine pain below the neck. Presents for further evaluation at this time. Denies any bladder or bowel incontinence. Denies any paralysis of lower extremities. Denies any saddle paresthesias. Does endorse recovering from a left ankle fracture but no acute complaints regarding this.Did not lose consciousness. Is not on blood thinners. Does not meet criteria for trauma activation or code coag. - Related Data Home Medications Medication Instructions Recorded Confirmed Levothyroxine Sodium [Synthroid] 25 mcg PO DAILY 03/07/14 10/17/23 Anastrozole [Arimidex] 1 mg PO DAILY@1200 10/16/16 10/17/23 Docusate [Colace] 100 mg PO DAILY@1200 09/02/19 10/17/23 Losartan Potassium [Cozaar] 25 mg PO HS 09/02/19 10/17/23 Metoprolol Tartrate [Lopressor] 50 mg PO BID@1200,2100 09/02/19 10/17/23 Rosuvastatin Calcium [Crestor] 40 mg PO HS 10/17/23 10/17/23 Previous Rx's Medication Instructions Recorded Acetaminophen Tab [Tylenol] 650 mg PO Q6HR PRN tab 10/20/23 Aspirin 81 mg PO BID tab 10/20/23 HYDROcodone/APAP 5-325MG [[place] 1 each PO Q6HR PRN #12 tab 10/20/23 5-325] Allergies Allergy/AdvReac Type Severity Reaction Status Date / Time codeine AdvReac Nausea Verified 03/21/25 15:52 morphine AdvReac Nausea Verified 03/21/25 15:52 sulfur dioxide AdvReac Nausea Verified 03/21/25 15:52 Review of Systems ROS Statement: Those systems with pertinent positive or pertinent negative responses have been documented in the HPI. Review of Systems: CONST: Denies fever EYES: Denies blurry vision ENT: Denies nasal congestion C/V: Denies Chest pain RESP: Denies shortness of breath GI: Denies abdominal pain : Denies dysuria SKIN: Denies rash. MSK: Endorses left wrist pain, right elbow pain, thoracic spine pain. NEURO: Denies headache ROS Other: All systems not noted in ROS Statement are negative. 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 History of Any Multi-Drug Resistant Organisms: None Reported Past Surgical History: Breast Surgery, Orthopedic Surgery, Tonsillectomy Additional Past Surgical History / Comment(s): Skin cancer removed from L side of nose, L knee surgery on meniscus, R breast lumpectomy, colonoscopy, bilateral cataract removals/lens implants. 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 Past Anesthesia/Blood Transfusion Reactions: No Reported Reaction Additional Past Anesthesia/Blood Transfusion Reaction / Comment(s): Daughter reports low O2 after a surgery. Past Psychological History: Anxiety, Depression Smoking Status: Never smoker Past Alcohol Use History: None Reported Past Drug Use History: None Reported - Past Family History Mother Family Medical History: CVA/TIA Additional Family Medical History / Comment(s): Mother had a CVA. Father Family Medical History: No Reported History Additional Family Medical History / Comment(s): from a fall Brother(s) Family Medical History: Cancer Additional Family Medical History / Comment(s): Stage IV prostate CA that has gone to the bone General Exam - General Exam Comments Initial Comments: General: Appears in no acute distress. HEAD: Normal with no signs of head trauma. EYES: PERRLA, EOMI, conjunctiva normal, no discharge. ENT: Hearing grossly intact, normal oropharynx. RESPIRATORY: Clear breath sounds bilaterally. No wheezes, rales, or rhonchi. C/V: Regular rate and rhythm. S1 and S2 auscultated, no edema, peripheral pulses 2+ and intact throughout ABD: Abd is soft, nontender, nondistended EXT: Normal range of motion, no obvious deformity. Brace located in the left ankle. Tenderness to palpation distal left knee with normal range of motion. Pelvis stable. Mild tenderness to palpation over the lateral left wrist. No snuffbox tenderness to palpation. No step-offs or deformities of the cervical, thoracic, lumbar spine. Mild tenderness palpation in the midline upper thoracic spine versus paraspinal tenderness tenderness to palpation.. SKIN: No rashes or lesions observed on exposed skin. NEURO: Alert and oriented x 4. Cranial nerves II-XII intact. No focal sensory or strength deficits. GCS of 15. Course Vital Signs 03/21/25 03/21/25 15:47 19:00 Temperature 98.2 F 98.4 F Pulse Rate 72 68 Respiratory 18 18 Rate Blood Pressure 152/82 144/72 O2 Sat by Pulse 95 97 Oximetry Medical Decision Making - Medical Decision Making Was pt. sent in by a medical professional or institution (, PA, [employer], urgent care, hospital, or retirement...) When possible be specific @ -No Did you speak to anyone other than the patient for history (EMS, parent, family, police, friend...)? What history was obtained from this source @ -No Did you review nursing and triage notes (agree or disagree)? Why? @ -I reviewed and agree with nursing and triage notes Were old charts reviewed (outside hosp., previous admission, EMS record, old EKG, old radiological studies, urgent care reports/EKG's, retirement records)? Report findings @ -No old charts were reviewed Differential Diagnosis (chest pain, altered mental status, abdominal pain women, abdominal pain men, vaginal bleeding, weakness, fever, dyspnea, syncope, headache, dizziness, GI bleed, back pain, seizure, CVA, palpatations, mental health, musculoskeletal)? @ -Differential Musculoskeletal Muscular strain, contusion, ligament sprain, fracture, arthritis, septic arthritis, bursitis, cellulitis, muscle spasm, nerve compression, DVT, arterial occlusion, herpes zoster, electrolyte abnormality, tumor.... This is not meant to be in all inclusive list EKG interpreted by me (3pts min.). @ -As above X-rays interpreted by me (1pt min.). @ -Chest, pelvis, knee, wrist, elbow and x-ray negative for any obvious acute traumatic injury. CT interpreted by me (1pt min.). @ -CT brain C-spine thoracic pain negative for any obvious acute traumatic injury. 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 No arthritis present of the spine. Patient does have chronic compression fracture of L2. U/S interpreted by me (1pt. min.). @ -None done What testing was considered but not performed or refused? (CT, X-rays, U/S, labs)? Why? @ -None What meds were considered but not given or refused? Why? @ -None Did you discuss the management of the patient with other professionals (professionals i.e. , PA, [employer], lab, RT, psych nurse, social media content specialist, employment training specialist, teacher, science and operations officer, case repairer)? Give summary @ -No Was smoking cessation discussed for >3mins.? @ -No Was critical care preformed (if so, how long)? @ -No Were there social determinants of health that impacted care today? How? (Homelessness, low income, unemployed, alcoholism, drug addiction, transportation, low edu. Level, literacy, decrease access to med. care, correction, rehab)? @ -No Was there de-escalation of care discussed even if they declined (Discuss DNR or withdrawal of care, Hospice)? DNR status @ -No What co-morbidities impacted this encounter? (DM, HTN, Smoking, COPD, CAD, Cancer, CVA, ARF, Chemo, Hep., AIDS, mental health diagnosis, sleep apnea, morbid obesity)? @ -None Was patient admitted / discharged? Hospital course, mention meds given and route, prescriptions, significant lab abnormalities, going to OR and other pertinent info. @ -Based on patient's presentation physical exam, presents for mechanical fall. Does not meet criteria for code coag or code thrombolytic. Vitals within acceptable limits. We will obtain CT imaging of the C-spine, T-spine, brain. We also obtain x-rays of the pelvis, chest, left wrist, right elbow, left knee. Patient was in agreement this plan. Given Tylenol for pain. Cervical collar in place. CT imaging negative. CT collar removed and cervical spine cleared. X-rays obtained and were negative for any obvious traumatic injury. I discussed the findings with the patient including informing her of her chronic lumbar compression fracture. She will be discharged home at this time. Strict return precautions discussed. Discussed she may develop a minor concussion and she will be given reading information regarding this. Patient was in agreement this plan. Strict return precautions discussed. Discharged home in the care of zeina calixto. I instructed the patient to follow up with their PCP in the next 1-3 days. I explained that the patient should return to the emergency department if they experience any worsening symptoms. Strict return precautions were discussed with the patient. The patient expressed understanding of these instructions. I answered all questions that the patient had. The patient was discharged home in good condition with their prescriptions and follow up information. Undiagnosed new problem with uncertain prognosis? @ -No Drug Therapy requiring intensive monitoring for toxicity (Heparin, Nitro, Insul in, Cardizem)? @ -No Were any procedures done? @ -No Diagnosis/symptom? @ -Fall, musculoskeletal pain Acute, or Chronic, or Acute on Chronic? @ -Acute Uncomplicated (without systemic symptoms) or Complicated (systemic symptoms)? @ -Uncomplicated Side effects of treatment? @ -No Exacerbation, Progression, or Severe Exacerbation? @ -No Poses a threat to life or bodily function? How? (Chest pain, [place], [place], pneumonia, PE, COPD, DKA, ARF, appy, cholecystitis, CVA, Diverticulitis, Homicidal, Suicidal, threat to staff... and all critical care pts) @ -Unlikely at this time Disposition Clinical Impression: Fall, Musculoskeletal pain Disposition: HOME SELF-CARE Condition: Good Instructions (If sedation given, give patient instructions): Concussion (ED), Fall Prevention for Older Adults (ED), Musculoskeletal Pain (ED) Is patient prescribed a controlled substance at d/c from ED?: No Referrals: Carolyn Bright MD [Primary Care Provider] - 1-2 days Time of Disposition: 18:50
[2025-03-21 19:01] VITALS: BP 144/72; PULSE 68; TEMP 98.4
== END 2025-03-21 19:01 | disposition home or self-care (01) ==
LOC: EEVIPCON 15:44 → EC 15:44
DX: M79.18 Myalgia, other site (principal); Z88.5 Allergy status to narcotic agent; Z88.8 Allergy status to other drugs, medicaments and biological substances; W01.198A Fall on same level from slipping, tripping and stumbling with subsequent striking against other object, initial encounter; Y93.01 Activity, walking, marching and hiking
CPT/HCPCS: 70450; 71045; 72125; 72128; 72170; 99284